=== PATIENT | female | born 1975 ===

== ENCOUNTER 2021-04-29 14:19 | Outpatient (REF) | payer OTHER, SELFPAY ==
[2021-04-30 05:23] LABS: CT PCR NOT DETECTED (Not Detect.); NG PCR NOT DETECTED (Not Detect.)
[2021-04-30 10:49] LABS: BV Int Neg Control Negative (Negative); BV Int Pos Control Positive (Positive)
== END 2021-04-29 14:20 | disposition home or self-care (01) ==
LOC: HO.LAB 14:19
PROVIDERS: PCP Internal Medicine; Visit Provider Advanced Practice Midwife
DX: R10.2 Pelvic and perineal pain (principal); N94.0 Mittelschmerz; N94.3 Premenstrual tension syndrome; Z20.2 Contact with and (suspected) exposure to infections with a predominantly sexual mode of transmission; Z30.011 Encounter for initial prescription of contraceptive pills
CPT/HCPCS: 81025; 87480; 87491; 87510; 87591; 87660; 99202

== ENCOUNTER 2021-05-14 16:03 | Outpatient (REF) | payer OTHER, SELFPAY ==
--- NOTE | ~2021-05-14 | US_ITS ---
EXAMINATION:US pelvic and transvaginal CLINICAL INFORMATION: Reason for Exam N94.3 - Premenstrual tension syndrome COMPARISON: No priors available. LMP: 8 days ago FINDINGS: UTERUS: The uterus is anteverted. Size: 7.6 x 4.5 x 5.5 cm. Uterine mass: There is no uterine mass. Cervix: There are nabothian cysts otherwise Grossly unremarkable. Endometrium: No ultrasound evidence of endometrial lesion. endometrial thickness measures ADNEXA: Normal Right ovary: Normal in size. Left ovary: Normal in size. Dominant follicle. Doppler exam: Normal Doppler flow identified in both ovaries. FREE FLUID: Trace amount of free fluid. OTHER FINDINGS: None US/US pelvic and transvaginal IMPRESSION: Normal pelvic ultrasound.
== END 2021-05-14 16:04 | disposition home or self-care (01) ==
LOC: HO.US 16:03
PROVIDERS: Visit Provider Advanced Practice Midwife
DX: N94.3 Premenstrual tension syndrome (principal); N94.0 Mittelschmerz; R10.2 Pelvic and perineal pain
CPT/HCPCS: 76830; 76856

== ENCOUNTER 2021-06-24 14:46 | Outpatient (REF) | payer OTHER, SELFPAY ==
--- NOTE | ~2021-06-24 | MM_ITS ---
EXAMINATION: MM SCREENING DIGITAL BREAST TOMOSYNTHESIS, BILATERAL CLINICAL INFORMATION: Screening. Asymptomatic. The lifetime risk of breast cancer based on the Tyrer-Cuzick Model is 6.7%. COMPARISON: Mammography: 05/24/2019 and studies dating back to 11/06/2011. TECHNIQUE: Digital breast tomosynthesis is performed in both the craniocaudal and mediolateral oblique views along with computer-aided detection (CAD). Synthesized 2D images are generated from the tomosynthesis. FINDINGS: The breasts are heterogeneously dense, which may obscure small masses (ACR BI-RADS breast composition Category c). Right breast: In the region of architectural distortion from previous stereotactic biopsy about the anterior superior aspect of the right breast, there is an approximately 1.5 x 1.2 cm partially circumscribed density with question small lobulation present. About the deep lateral aspect of the left breast superiorly, there is a partially circumscribed 2 cm density. Left breast: About the deep upper outer aspect of the left breast, approximately 9 cm from the nipple, there is a 2.0 x 1.9 cm circumscribed density. About the upper outer aspect of the left breast, approximately 3 cm nipple, there is a partially circumscribed 1.4 cm density. MM/MM tomosynthesis screening BI IMPRESSION: Bilateral breast densities for which spot compression views and probable ultrasound are recommended. ASSESSMENT: BI-RADS 0: Incomplete - Need Additional Imaging Evaluation RECOMMENDATION: 1. Additional views of the bilateral breasts. 2. Targeted ultrasound if warranted after review of the additional views. 3. Radiology department staff will contact the patient for additional imaging. This patient's information was entered into a reminder system with a target due date for their next mammogram.
== END 2021-06-24 14:47 | disposition home or self-care (01) ==
LOC: HO.MAMMO 14:46
PROVIDERS: Visit Provider Advanced Practice Midwife
DX: Z12.31 Encounter for screening mammogram for malignant neoplasm of breast (principal)
CPT/HCPCS: 77063; 77067

== ENCOUNTER 2021-07-04 13:56 | Outpatient (REF) | payer OTHER, SELFPAY ==
--- NOTE | ~2021-07-04 | MM_ITS ---
EXAMINATION: MM DIAGNOSTIC DIGITAL BREAST TOMOSYNTHESIS, BILATERAL US DIAGNOSTIC ULTRASOUND BREAST, BILATERAL CLINICAL INFORMATION: Recall from screening for bilateral oval smooth partly obscured asymmetries, likely fibrocystic changes. Prior history right breast stereotactic biopsy 05/25/2018 and subsequent open surgical biopsy 06/04/2018 (radial sclerosing lesion, florid ductal hyperplasia, columnar cell change, biopsy cavity, apocrine metaplasia, microcysts, duct ectasia, rare microcalcifications and stromal fibrosis). COMPARISON: Mammography: 06/24/2021, 05/24/2019, 06/04/2018, 05/25/2018. TECHNIQUE: Digital breast tomosynthesis is performed. 2D images are generated from the tomosynthesis. The following views are obtained: Spot right CC, spot right ML, spot left CC x2, spot left ML. Ultrasound of both breasts is performed using grayscale imaging and color Doppler without and with harmonics. Bilateral targeted areas include retroareolar and upper outer right breast, and left anterior and posterior upper outer quadrant. FINDINGS: The breasts are heterogeneously dense, which may obscure small masses (ACR BI-RADS breast composition Category c). The additional views confirm oval benign-appearing smooth partly obscured asymmetry left upper outer quadrant mid and posterior and right breast upper outer periareolar and mid upper outer right breast. Ultrasound right breast demonstrates simple cyst at 11:00 position 6 cm from nipple measuring approximately 1.9 x 1.5 x 1.1 cm. There are at least 5 simple cysts in the retroareolar right breast largest approximately 1.4 x 0.8 cm and next largest 1.2 x 0.8 cm. There is some focal shadowing also noted central anterior right breast corresponding to the prior lumpectomy scar. Ultrasound left breast demonstrates several simple cysts upper outer quadrant, largest 2:00 position 9 cm from nipple measuring approximately 1.7 x 0.9 cm and next largest 1:00 position 3 cm from nipple measuring 1.5 x 1.0 cm. Results are discussed with the patient at time of visit, using an storage receipt poster. MM/MM tomosynthesis added view BI IMPRESSION: Bilateral fibrocystic parenchymal pattern. Bilateral benign simple cysts on targeted ultrasound. ASSESSMENT: BI-RADS 2: Benign RECOMMENDATION: Routine annual mammography screening. This patient's information was entered into a reminder system with a target due date for their next mammogram.
== END 2021-07-04 13:57 | disposition home or self-care (01) ==
LOC: HO.MAMMO 13:56
PROVIDERS: PCP Internal Medicine; Visit Provider Advanced Practice Midwife
DX: N64.89 Other specified disorders of breast (principal)
CPT/HCPCS: 76642; 77062; 77066

== ENCOUNTER 2021-09-20 07:49 | Outpatient (REF) | payer OTHER, SELFPAY ==
[2021-09-20 10:15] LABS: COVID-19 Test Negative (Negative); IDNOW Serial# 16C4AD1C
== END 2021-09-20 07:50 | disposition home or self-care (01) ==
LOC: HO.LAB 07:49
PROVIDERS: Visit Provider Internal Medicine
DX: Z20.822 Contact with and (suspected) exposure to COVID-19 (principal)
CPT/HCPCS: 36415; 87635; C9803

== ENCOUNTER 2021-10-26 07:50 | Outpatient (REF) | payer OTHER, SELFPAY ==
--- NOTE | ~2021-10-26 | XR_ITS ---
EXAMINATION: XR CHEST CLINICAL INFORMATION: Cough COMPARISON: None TECHNIQUE: Frontal view of the chest was obtained. FINDINGS: No significant abnormality is noted involving the heart, lungs, mediastinum, bony thorax or soft tissues. XR/XR chest 1V IMPRESSION: Unremarkable examination.
[2021-10-26 08:08] LABS: MANUAL DIFF FLAG NO
[2021-10-26 08:13] LABS: Basophils Absolute Auto 0.1 X10*3/uL (0.0-0.2); Basophils Percent Auto 0.8 % (0-2); Eosinophils Absolute Auto 0.3 X10*3/uL (0.0-0.4); Eosinophils Percent Auto 4.7 % (0-4); Hematocrit 40.9 % (37.0-47.0); Hemoglobin 13.4 g/dl (12.0-16.0); Imm Gran Abs Auto 0.01 X10*3/uL (0.00-0.03); Imm Gran Pct Auto 0.2 % (0.0-0.4); Lymphocytes Absolute Auto 1.8 X10*3/uL (1.2-4.9); Mean Corpuscular HGB Conc 32.8 g/dl (31.0-35.0); Mean Corpuscular Hemoglobin 29.9 pg (27.0-33.0); Mean Corpuscular Volume 91.3 fL (80.0-98.0); Mean Platelet Volume 10.2 fL (9.4-12.3); Monocytes Absolute Auto 0.3 X10*3/uL (0.1-1.2); Monocytes Percent Auto 5.8 % (2-11); Neutrophils Absolute Auto 3.4 x10*3/uL (2.0-8.3); Neutrophils Percent Auto 57.5 % (45-73); Platelet Count 208 X10*3/uL (160-400); Red Blood Count 4.48 X10*6/uL (4.20-5.50); Red Cell Distribution Width 12.6 % (11.0-16.0); White Blood Count 5.9 X10*3/uL (4.8-10.8)
[2021-10-26 08:25] LABS: Estimated Average Glucose 105 mg/dL; Hemoglobin A1c % 5.3 %
[2021-10-26 08:44] LABS: Alanine Aminotransferase 13 U/L (0-31); Albumin Level 4.1 g/dL (3.5-5.0); Alkaline Phosphatase 54 U/L (39-117); Anion Gap 10 (12-20); Aspartate Amino Transferase 13 U/L (5-31); Bilirubin Total 0.3 mg/dL (0.0-1.0); Blood Urea Nitrogen 23 mg/dL (9-16); Calcium 9.7 mg/dL (8.4-10.2); Carbon Dioxide 27 mmol/L (22-29); Chloride 106 mmol/L (96-108); Cholesterol 231 mg/dL; Estimated Glomerular Filt Rate > 60; Glucose Fasting 96 mg/dL (60-99); HDL Cholesterol 59 mg/dL; LDL Cholesterol Calculated 161 mg/dl; Potassium 4.1 mmol/L (3.3-5.1); Sodium 139 mmol/L (135-145); Total Protein 6.9 g/dL (6.5-8.0); Triglycerides 56 mg/dL
[2021-10-26 09:05] LABS: TSH reflex Free T4 0.68 uIU/mL (0.32-4.0)
[2021-10-28 09:34] LABS: Folate 11.5 ng/mL (> or = 4.0); Vitamin B12 > 2000 pg/mL (200-900)
[2021-10-30 16:21] LABS: Vitamin D 25-OH, D2 <4 ng/mL; Vitamin D 25-OH, D3 27 ng/mL; Vitamin D 25-OH, Total 27 ng/mL (30-100)
== END 2021-10-26 07:51 | disposition home or self-care (01) ==
LOC: HO.LAB 07:50
PROVIDERS: Visit Provider Nurse Practitioner Acute Care
DX: Z00.00 Encounter for general adult medical examination without abnormal findings (principal); R05.9 Cough, unspecified
CPT/HCPCS: 36415; 71045; 80053; 80061; 82306; 82607; 82746; 83036; 84443; 85025

== ENCOUNTER 2021-12-18 08:57 | Outpatient (REF) | payer OTHER, SELFPAY ==
[2021-12-18 15:58] LABS: CT PCR NOT DETECTED (Not Detect.); NG PCR NOT DETECTED (Not Detect.)
[2021-12-19 15:44] LABS: BV Int Neg Control Negative (Negative); BV Int Pos Control Positive (Positive)
== END 2021-12-18 08:58 | disposition home or self-care (01) ==
LOC: HO.LAB 08:57
PROVIDERS: PCP Internal Medicine; Visit Provider Advanced Practice Midwife
DX: Z01.411 Encounter for gynecological examination (general) (routine) with abnormal findings (principal); R10.2 Pelvic and perineal pain; N94.0 Mittelschmerz; N92.0 Excessive and frequent menstruation with regular cycle; Z20.2 Contact with and (suspected) exposure to infections with a predominantly sexual mode of transmission
CPT/HCPCS: 87480; 87491; 87510; 87591; 87660; 99212

== ENCOUNTER 2022-01-07 15:14 | Outpatient (REF) | payer OTHER, SELFPAY ==
[2022-01-08 09:00] LABS: CT PCR NOT DETECTED (Not Detect.); NG PCR NOT DETECTED (Not Detect.)
[2022-01-08 09:48] LABS: BV Int Neg Control Negative (Negative); BV Int Pos Control Positive (Positive)
[2022-01-09 17:01] LABS: HPV mRNA E6/E7 rflx Not Detected (Not Detected)
== END 2022-01-07 15:15 | disposition home or self-care (01) ==
LOC: HO.LAB 15:14
PROVIDERS: Visit Provider Advanced Practice Midwife
DX: Z01.419 Encounter for gynecological examination (general) (routine) without abnormal findings (principal); Z11.51 Encounter for screening for human papillomavirus (HPV); Z20.2 Contact with and (suspected) exposure to infections with a predominantly sexual mode of transmission
CPT/HCPCS: 87480; 87491; 87510; 87591; 87624; 87660; 88142

== ENCOUNTER 2022-01-08 14:16 | Outpatient (REF) | payer OTHER, SELFPAY ==
--- NOTE | ~2022-01-08 | US_ITS ---
EXAMINATION: US PELVIS CLINICAL INFORMATION: Excessive and frequent menstruation with irregularity, menstrual spotting. COMPARISON: None TECHNIQUE: Ultrasound of the pelvis is performed using both transabdominal and transvaginal transducers along with Doppler. Transvaginal imaging is performed due to inadequate visualization transabdominally. FINDINGS: Uterus: The uterus is anteverted, anteflexed and measures 8.08 cm in length, 4.5 cm in AP, and 5.1 cm in transverse dimension. The double wall endometrial thickness is 0.89 cm. The uterus is smooth in contour and has normal myometrial echogenicity. No visible fibroid. There are small nabothian cysts seen in the cervix. The cervix is normal. Adnexa: Both ovaries are visualized. There is normal color-flow to the adnexa. There is no ovarian torsion. There is no pelvic ascites or fluid collection. Right ovary measures 2.14 x 1.50 x 1.38 cm and volume 2.32 mL. It appears unremarkable. Previously right ovary measured 2.7 x 1.1 x 1.5 cm. Left ovary measures 2.22 x 1.41 x 1.56 cm and volume 2.57 mL. It appears unremarkable. Previously it measured 2.5 x 2.1 x 1.8 cm. US/US pelvic and transvaginal IMPRESSION: Unremarkable uterus. Small nabothian cysts in the cervix. Unremarkable ovaries.
== END 2022-01-08 14:17 | disposition home or self-care (01) ==
LOC: HO.US 14:16
PROVIDERS: Visit Provider Advanced Practice Midwife
DX: N92.0 Excessive and frequent menstruation with regular cycle (principal); N94.0 Mittelschmerz; R10.2 Pelvic and perineal pain
CPT/HCPCS: 76830; 76856

== ENCOUNTER → 2022-01-22 10:55 | Outpatient (BNVA) | payer OTHER, SELFPAY | PROVIDERS: Visit Provider Advanced Practice Midwife | DX: Z13.89 Encounter for screening for other disorder (principal) ==

== ENCOUNTER 2022-08-09 07:47 | Emergency (ER) | payer OTHER, SELFPAY ==
--- NOTE | 2022-08-09 08:01 | ED.GENADULT ---
HPI - General Adult General Chief complaint: Upper Respiratory Symptoms Stated complaint: chills, headache, sore throat Time Seen by Provider: 08/09/22 07:57 Source: patient Mode of arrival: ambulatory Limitations: no limitations History of Present Illness HPI narrative: This is a 47 years old female with no past medical history presented to the emergency department from work complaining of body aches malaise headache. Symptoms started 3 hours ago while at work. She denies any vomiting any diarrhea any other medical problems Onset (ago): hour(s) (3) Radiation: non-radiation Severity: moderate Pain Consistency: constant Relieving factors: none Exacerbating factors: none Related Data Previous Rx's Medication Instructions Recorded aspirin 81 mg tablet,delayed 81 mg PO DAILY 90 days #90 tabs 04/16/22 release (Adult Aspirin Regimen) magnesium 200 mg tablet 200 mg PO DAILY #30 tabs 04/16/22 rizatriptan 10 mg tablet 10 mg PO Q2-4H PRN migraine 04/16/22 headache 30 days #12 tabs cholecalciferol (vitamin D3) 25 50 mcg PO DAILY 90 days #180 caps 06/02/22 mcg (1,000 unit) capsule ibuprofen 800 mg tablet 800 mg PO Q8H PRN pain #30 tabs 08/09/22 Allergies Allergy/AdvReac Type Severity Reaction Status Date / Time cefazolin [CEFAZOLIN] Allergy Intermediate RASH, Verified 08/09/22 08:15 HIVES, ITCHINESS Penicillins [PENICILLINS] Allergy Intermediate RASH Verified 08/09/22 08:15 penicillin G Allergy Unknown rash, Verified 08/09/22 08:15 itching antibiotic unsure name Allergy Unknown unknown Uncoded 04/16/22 16:36 Review of Systems Review of Systems: Yes all other systems are reviewed and are negative Cardiovascular: Cardiovascular: Reports no additional cardiovascular complaints Respiratory: Respiratory: Reports no additional respiratory complaints PMFSH Past Medical History Medical History Galactorrhea Migraines Surgical History H/O hand surgery History of bilateral tubal ligation History of reduction surgery of right breast Family History Family History Maternal Aunt Cervical cancer Social History Social History Housing: Apartment Alcohol intake: never Patient Tobacco Use Status: Never used Tobacco e-Cigarette/Vaping Use: Never Used Second Hand Smoke Exposure: No Advance Directives: No Advance Directives Information Provided: Yes service: No Current occupational status: employed Current occupational exposures/hazards: No Gender identity: Female Cognitive needs: No Hearing needs: No Vision needs: No Physical Exam ED Vital Signs: Vital Signs - 24 hr 08/09/22 08:16 08/09/22 09:13 Temperature 100.1 F 98.9 F Pulse Rate 113 H 112 H Respiratory Rate 18 18 Blood Pressure 111/62 102/58 L Pulse Oximetry 99 97 Oxygen Delivery Method Room Air Room Air BMI result Body Mass Index 23.4 Const General: cooperative and alert Nutritional Appearance: average body habitus Orientation/consciousness: patient oriented x3 HENMT Head: Yes normal to inspection General nose exam: Normal external nose present Face and sinus: Yes normal facial exam Mouth: Normal oral and palatal mucosa present Throat: Yes posterior oropharynx normal Neck Neck: Yes normal visual inspection and Yes full ROM Chest Chest palpation & inspection: normal inspection of the chest Resp Effort & Inspection: able to speak in complete sentences Auscultation: clear to auscultation bilaterally Cardio Jugular venous distension: no JVD Rate: regular rate Rhythm: regular rhythm GI Inspection: Yes normal to inspection Palpation (GI): Soft to palpation Auscultation: normal bowel sounds Skin General skin exam: no rashes or lesions noted and elasticity normal Lesions: no lesions Rashes: no rashes Neuro General: patient oriented x3 Course Course Course Narrative: covid pos bu Sat 97 % ar RA,non toxic appearing will d/c home Medical Decision Making Lab Data Labs: Lab Results 08/09/22 Range/Units 08:09 Influenza Type A (PCR) NEGATIVE (Negative) Influenza Type B (PCR) NEGATIVE (Negative) RSV RNA Qual (PCR) NEGATIVE (Negative) SARS-CoV-2 RNA (RT-PCR) POSITIVE A (Negative) Discharge Plan Discharge Clinical Impression: COVID-19 Patient Disposition: Home, Self-Care Instructions: COVID-19 (Coronavirus Disease 2019) (ED) Prescriptions: New ibuprofen 800 mg tablet 800 mg PO Q8H PRN (Reason: pain) Qty: 30 0RF No Action cholecalciferol (vitamin D3) 25 mcg (1,000 unit) capsule 50 mcg PO DAILY 90 Days Qty: 180 1RF rizatriptan 10 mg tablet 10 mg PO Q2-4H PRN (Reason: migraine headache) 30 Days Qty: 12 6RF Rx Instructions: do not exceed 3 doses per 24 hrs magnesium 200 mg tablet 200 mg PO DAILY Qty: 30 1RF aspirin [Adult Aspirin Regimen] 81 mg tablet,delayed release (DR/EC) 81 mg PO DAILY 90 Days Qty: 90 1RF Referrals: Janice Luke MD [Primary Care Provider] - 09/12/22 Stand Alone Forms: Work/School Release Interventions: ED Discharge Assessment Last Done: 08/09/22 09:47 Discharge Date/Time: 08/09/22 09:48
[2022-08-09 08:16] VITALS: BP 111/62; PULSE 113; RESP 18; TEMP 37.8; O2SAT 99; BMI 23.4
[2022-08-09] MEDS: Ibuprofen 800 MG TABLET PO (08:24)
[2022-08-09 08:56] LABS: Influenza A PCR NEGATIVE (Negative); Influenza B PCR NEGATIVE (Negative); Resp Syncy Virus RNA Qual PCR NEGATIVE (Negative); SARS COV2 PCR INHOUSE POSITIVE (Negative)
[2022-08-09 09:13] VITALS: BP 102/58; PULSE 112; RESP 18; TEMP 37.2; O2SAT 97
== END 2022-08-09 09:48 | disposition home or self-care (01) ==
PROVIDERS: Emergency Provider Emergency Medicine; PCP Internal Medicine
DX: U07.1 COVID-19 (principal); R51.9 Headache, unspecified
CPT/HCPCS: 0241U; 99283

== ENCOUNTER 2022-10-02 08:04 | Outpatient (REF) | payer OTHER, SELFPAY ==
[2022-10-02 08:14] LABS: MANUAL DIFF FLAG NO
[2022-10-02 08:42] LABS: Basophils Percent Auto 0.7 % (0-2); Eosinophils Absolute Auto 0.4 X10*3/uL (0.0-0.4); Eosinophils Percent Auto 6.3 % (0-4); Hemoglobin 13.2 g/dl (12.0-16.0); Imm Gran Abs Auto 0.02 X10*3/uL (0.00-0.03); Imm Gran Pct Auto 0.3 % (0.0-0.4); Lymphocytes Percent Auto 35.1 % (20-40); Mean Corpuscular Hemoglobin 29.6 pg (27.0-33.0); Mean Corpuscular Volume 89.7 fL (80.0-98.0); Mean Platelet Volume 10.4 fL (9.4-12.3); Monocytes Absolute Auto 0.4 X10*3/uL (0.1-1.2); Monocytes Percent Auto 6.8 % (2-11); Neutrophils Absolute Auto 2.9 x10*3/uL (2.0-8.3); Neutrophils Percent Auto 50.8 % (45-73); Platelet Count 237 X10*3/uL (160-400); Red Blood Count 4.46 X10*6/uL (4.20-5.50); Red Cell Distribution Width 12.3 % (11.0-16.0); White Blood Count 5.7 X10*3/uL (4.8-10.8)
[2022-10-02 09:32] LABS: Alanine Aminotransferase 10 U/L (0-31); Alkaline Phosphatase 64 U/L (39-117); Anion Gap 8 (12-20); Aspartate Amino Transferase 13 U/L (5-31); Bilirubin Total 0.7 mg/dL (0.0-1.0); Blood Urea Nitrogen 18 mg/dL (9-16); Calcium 9.2 mg/dL (8.4-10.2); Carbon Dioxide 28 mmol/L (22-29); Chloride 106 mmol/L (96-108); Cholesterol 212 mg/dL; Estimated Glomerular Filt Rate > 60; Glucose Fasting 94 mg/dL (60-99); HDL Cholesterol 60 mg/dL; LDL Cholesterol Calculated 141 mg/dl; Potassium 4.3 mmol/L (3.3-5.1); Sodium 138 mmol/L (135-145); Total Protein 6.5 g/dL (6.5-8.0); Triglycerides 57 mg/dL; Vitamin D 25-OH Total 41.8 ng/mL (>30)
== END 2022-10-02 08:05 | disposition home or self-care (01) ==
LOC: HO.LAB 08:04
PROVIDERS: PCP Internal Medicine; Visit Provider Internal Medicine
DX: Z00.00 Encounter for general adult medical examination without abnormal findings (principal); D64.9 Anemia, unspecified; E55.9 Vitamin D deficiency, unspecified
CPT/HCPCS: 36415; 80053; 80061; 82306; 85025

== ENCOUNTER 2023-03-13 15:46 | Outpatient (REF) | payer OTHER, SELFPAY ==
--- NOTE | ~2023-03-13 | MM_ITS ---
EXAMINATION: MM SCREENING DIGITAL BREAST TOMOSYNTHESIS, BILATERAL CLINICAL INFORMATION: Screening. Asymptomatic. Right open surgical biopsy 06/04/2018 for radial sclerosing lesion. The lifetime risk of breast cancer based on the Tyrer-Cuzick Model is 7%. COMPARISON: Multiple prior studies including most recent mammography and bilateral breast ultrasound 07/04/2021. TECHNIQUE: Digital breast tomosynthesis is performed in both the craniocaudal and mediolateral oblique views along with computer-aided detection (CAD). Synthesized 2D images are generated from the tomosynthesis. FINDINGS: The breasts are heterogeneously dense, which may obscure small masses (ACR BI-RADS breast composition Category c). Fibrocystic parenchymal pattern and scattered benign asymmetries are similar to prior study. There is stable scarring anterior right breast from the excisional biopsy. There is no significant mass or interval architectural abnormality. No abnormal calcifications. The axilla are unremarkable. The skin contours are smooth. No significant changes. MM/MM tomosynthesis screening BI IMPRESSION: No mammographic evidence of malignancy. ASSESSMENT: BI-RADS 2: Benign RECOMMENDATION: Routine annual mammography screening. This patient's information was entered into a reminder system with a target due date for their next mammogram.
== END 2023-03-13 15:47 | disposition home or self-care (01) ==
LOC: HO.MAMMO 15:46
PROVIDERS: PCP Internal Medicine; Visit Provider Advanced Practice Midwife
DX: Z12.31 Encounter for screening mammogram for malignant neoplasm of breast (principal)
CPT/HCPCS: 77063; 77067

== ENCOUNTER 2023-05-27 15:41 | Outpatient (AMB) | payer BC, OTHER, SELFPAY ==
--- NOTE | 2023-05-27 15:52 | A.OFFPC_ITS ---
Vital Signs 05/27/23 15:53 Height 5 ft 1 in Weight 124 lb BMI 23.4 BP 110/70 Blood Pressure Location Lt brachial Position Sitting Intake Visit Reasons: Headaches Intake Note: Patient here for a follow up headaches Research Compliance Specialist Required: No Accompanied by: Self / Same As Patient Allergies cefazolin [CEFAZOLIN] Allergy (Intermediate, Verified 05/27/23 16:06) RASH, HIVES, ITCHINESS Penicillins [PENICILLINS] Allergy (Intermediate, Verified 05/27/23 16:06) RASH penicillin G Allergy (Unknown, Verified 05/27/23 16:06) rash, itching antibiotic unsure name Allergy (Unknown, Uncoded 05/27/23 16:06) unknown Medication List - Last Reconciled 05/27/23 by Janice Rios MD amitriptyline 10 mg PO BEDTIME 90 days aspirin (Adult Aspirin Regimen) 81 mg PO DAILY 90 days cholecalciferol (vitamin D3) 25 mcg PO DAILY 90 days rizatriptan 10 mg PO Q2-4H PRN 30 days Tobacco use date assessed: 10/28/22 Dental Screening Dental Screen Date: 05/27/23 Did you have a dental visit in the last 12 months?: Yes Did you have a dental problem in the last 6 months where you did not have access to dental care?: No Was dental information given to patient?: Patient has dentist HPI HPI Comments History of Present Illness Details This is a 47-year-old female that complains of migraines that have been present more frequently. She does said that she has been working more hours. No unilateral weakness associated with migraine. No blurry vision. I will increase amitriptyline from 10 mg to 25 mg. Had an episode of palpitations on exertion and dyspnea. No chest pain. [facility] Medical History Galactorrhea Migraines Surgical History H/O hand surgery History of bilateral tubal ligation History of reduction surgery of right breast Family History Maternal Aunt Cervical cancer Social History Housing: Apartment Alcohol intake: never Patient Tobacco Use Status: Never used Tobacco e-Cigarette/Vaping Use: Never Used Second Hand Smoke Exposure: No service: No Current occupational status: employed Current occupational exposures/hazards: No Gender identity: Female Cognitive needs: No Hearing needs: No Vision needs: Yes Female Reproductive History Menstrual Age of Menarche: 14 Questionnaire Thrive Questionnaire Date Thrive assessed: 10/28/22 ION-7 AMB Questionnaire ION-7 Date ION - 7 assessed: 10/28/22 Source: Developed by Drs. Magdy Edwards, Lela Ferreira, Jose Naik and colleagues, with an educational katie from [employer]. Review of Systems Const All systems reviewed & are unremarkable except as noted in HPI and below Eyes Reports no additional complaints, Denies change in vision and Denies other visual disturbances Card Denies chest pain at rest, Denies chest pain with activity, Denies edema, Denies irregular heart rhythm, Denies claudication, Denies dyspnea, Denies dyspnea on exertion, Denies orthopnea, Denies paroxysmal nocturnal dyspnea and Denies slow heart rate Resp Denies cough, Denies dyspnea and Denies dyspnea on exertion GI Denies abdominal pain, Denies change in bowel habits, Denies excessive flatus, Denies nausea and Denies vomiting Denies urinary incontinence, Denies urinary hesitancy and Denies urinary urgency Musc Denies abnormal gait, Denies atrophy, Denies deformity and Denies limited range of motion Skin/Breast Denies bleeding lesions, Denies changing lesions and Denies rash Neuro Denies abnormal gait and Denies lack of coordination Physical exam (Primary Care) Vital Signs: Last Vital Signs BP 110/70 05/27/23 15:53 BMI result Body Mass Index 23.4 Tobacco/Smoking Status: Tobacco use Status Tobacco use date assessed 10/28/22 05/27/23 15:53 Patient Tobacco Use Status Never used Tobacco 05/27/23 15:53 e-Cigarette/Vaping Use Never Used 05/27/23 15:53 Thrive Assessment: Date of Thrive Assessment Date Thrive assessed 10/28/22 05/27/23 15:53 Eyes General: appearance normal, both eyes and all related structures Eyelids: Yes eyelids normal Conjunctivae: conjunctivae normal Neck Neck: Yes normal visual inspection and Yes supple Resp Effort & Inspection: normal respiratory effort Auscultation: clear to auscultation bilaterally Cardio Jugular venous distension: no JVD Rate: regular rate Rhythm: regular rhythm Heart sounds: S1 normal heart sound present and S2 normal heart sound present Extrem General: Yes full ROM Assessment and Plan Assessment & Plan (1) Migraines: Code(s): G43.909 - Migraine, unspecified, not intractable, without status migrainosus Plan: Increase amitriptyline from 10 mg to 25 mg. Continue rizatriptan as needed. Orders: Orders Lipid Panel Today E78.5 - Hyperlipidemia, unspecified Vitamin D 25-OH Total Today E55.9 - Vitamin D deficiency, unspecified Comprehensive Violet. Panel Fast Today G43.909 - Migraine, unspecified, not intractable, without status migrainosus Complete Blood Count Auto Diff Today G43.909 - Migraine, unspecified, not intractable, without status migrainosus Referrals Vascular Surgery Referral I87.2 - Venous insufficiency (chronic) (peripheral) Medications: New amitriptyline 25 mg PO BEDTIME 90 tabs 0RF 90 days Discontinued amitriptyline Discontinued Reason: Patient Completed Course 10 mg PO BEDTIME 90 days 90 tabs 1RF G43.909 - Migraine, unspecified, not intractable, without status migrainosus Coding Level of Care Code Est Pt Level 3 (27268) Diagnoses Migraines G43.909 Time Spent (min) 18
[2023-05-27 15:53] VITALS: BP 110/70; BMI 23.4
== END 2023-05-27 16:15 | disposition home or self-care (01) ==
PROVIDERS: PCP Internal Medicine; Visit Provider Internal Medicine
DX: G43.909 Migraine, unspecified, not intractable, without status migrainosus (principal)
CPT/HCPCS: 99213

== ENCOUNTER 2023-06-13 07:25 | Outpatient (REF) | payer BC, SELFPAY ==
[2023-06-13 07:49] LABS: MANUAL DIFF FLAG NO
[2023-06-13 08:18] LABS: Basophils Percent Auto 0.7 % (0-2); Eosinophils Absolute Auto 0.3 X10*3/uL (0.0-0.4); Eosinophils Percent Auto 5.6 % (0-4); Hematocrit 40.6 % (37.0-47.0); Hemoglobin 13.4 g/dl (12.0-16.0); Imm Gran Abs Auto 0.01 X10*3/uL (0.00-0.03); Imm Gran Pct Auto 0.2 % (0.0-0.4); Lymphocytes Absolute Auto 2.1 X10*3/uL (1.2-4.9); Mean Corpuscular Hemoglobin 29.5 pg (27.0-33.0); Mean Corpuscular Volume 89.2 fL (80.0-98.0); Mean Platelet Volume 10.4 fL (9.4-12.3); Monocytes Absolute Auto 0.4 X10*3/uL (0.1-1.2); Monocytes Percent Auto 7.8 % (2-11); Neutrophils Absolute Auto 2.5 x10*3/uL (2.0-8.3); Neutrophils Percent Auto 46.7 % (45-73); Platelet Count 215 X10*3/uL (160-400); Red Blood Count 4.55 X10*6/uL (4.20-5.50); Red Cell Distribution Width 12.1 % (11.0-16.0); White Blood Count 5.4 X10*3/uL (4.8-10.8)
[2023-06-13 08:53] LABS: Alanine Aminotransferase 13 U/L (0-31); Alkaline Phosphatase 56 U/L (39-117); Anion Gap 9 (12-20); Aspartate Amino Transferase 14 U/L (5-31); Bilirubin Total 0.4 mg/dL (0.0-1.0); Blood Urea Nitrogen 23 mg/dL (9-16); Calcium 9.7 mg/dL (8.4-10.2); Carbon Dioxide 29 mmol/L (22-29); Chloride 107 mmol/L (96-108); Cholesterol 229 mg/dL (<200); Estimated Glomerular Filt Rate > 60; Glucose Fasting 97 mg/dL (60-99); HDL Cholesterol 66 mg/dL (>40); LDL Cholesterol Calculated 156 mg/dL (<100); Potassium 4.5 mmol/L (3.3-5.1); Sodium 140 mmol/L (135-145); Total Protein 6.5 g/dL (6.5-8.0); Triglycerides 37 mg/dL (<150)
[2023-06-13 09:12] LABS: Vitamin D 25-OH Total 40.8 ng/mL (>30)
== END 2023-06-13 07:26 | disposition home or self-care (01) ==
LOC: HO.LAB 07:25
PROVIDERS: PCP Internal Medicine; Visit Provider Internal Medicine
DX: E55.9 Vitamin D deficiency, unspecified (principal); G43.909 Migraine, unspecified, not intractable, without status migrainosus; E78.5 Hyperlipidemia, unspecified
CPT/HCPCS: 36415; 80053; 80061; 82306; 85025

== ENCOUNTER 2023-12-07 16:26 | Outpatient (AMB) | payer BC, OTHER, SELFPAY ==
--- NOTE | 2023-12-07 16:30 | MHC.PC.OV ---
Vital Signs 12/07/23 16:31 Height 5 ft 1 in Weight 125 lb BMI 23.6 BP 130/80 Blood Pressure Location Lt brachial Position Sitting Intake Visit Reasons: Annual exam Intake Note: Patient here for a physical exam Exchange Consultant Required: No Accompanied by: Self / Same As Patient Allergies cefazolin [CEFAZOLIN] Allergy (Intermediate, Verified 12/07/23 16:49) RASH, HIVES, ITCHINESS Penicillins [PENICILLINS] Allergy (Intermediate, Verified 12/07/23 16:49) RASH penicillin G Allergy (Unknown, Verified 12/07/23 16:49) rash, itching antibiotic unsure name Allergy (Unknown, Uncoded 12/07/23 16:49) unknown Medication List - Last Reconciled 12/07/23 by Janice Rios MD amitriptyline 25 mg PO BEDTIME 90 days aspirin (Adult Aspirin Regimen) 81 mg PO DAILY 90 days cholecalciferol (vitamin D3) 25 mcg PO DAILY 90 days rizatriptan 10 mg PO Q2-4H PRN 30 days Tobacco use date assessed: 12/07/23 Dental Screening Dental Screen Date: 12/07/23 Did you have a dental visit in the last 12 months?: Yes Did you have a dental problem in the last 6 months where you did not have access to dental care?: No Was dental information given to patient?: Patient has dentist HPI HPI Comments History of Present Illness Details This is a 48-year-old female with mild major depression that comes for her physical exam. She is interested in counseling for her depression. Will start her on buspirone for her anxiety. Last mammogram was March 2023. Pap smear 2021. No history of colon cancer. Will have Cologuard. [facility] Medical History (Updated 12/07/23 @ 16:58 by Janice Rios MD) Galactorrhea Migraines Surgical History H/O hand surgery History of reduction surgery of right breast History of bilateral tubal ligation Family History (Updated 12/07/23 @ 16:55 by Janice Rios MD) Maternal Aunt Cervical cancer Father Hypertension Mother Diabetes mellitus Social History Housing: Apartment Alcohol intake: never Patient Tobacco Use Status: Never used Tobacco e-Cigarette/Vaping Use: Never Used Second Hand Smoke Exposure: No service: No Current occupational status: employed Current occupational exposures/hazards: No Gender identity: Female Cognitive needs: No Hearing needs: No Vision needs: Yes Female Reproductive History Menstrual Age of Menarche: 14 Questionnaire PHQ-9 Over the last 2 weeks, how often have you been bothered by any of the following problems? 1. Little interest or pleasure in doing things: not at all 2. Feeling down, depressed, or hopeless: several days 3. Trouble falling or staying asleep, or sleeping too much: more than half the days 4. Feeling tired or having little energy: not at all 5. Poor appetite or overeating: not at all 6. Feeling bad about yourself - or that you are a failure or have let yourself or your family down: not at all 7. Trouble concentrating on things, such as reading the newspaper or watching television: not at all 8. Moving or speaking so slowly that other people could have noticed. Or the opposite - being so fidgety or restless that you have been moving around a lot more than usual: not at all 9. Thoughts that you would be better off or of hurting yourself in some way: not at all Total score: 3 Depression Screening Interpretation: Positive Depression Screening Follow-up: Existing condition, In treatment and Community Mental Health Worker F/U Depression Screening Done: Yes 12589 - PHQ-9 Billing: Yes Source: Developed by Drs. Magdy Edwards, Lela Ferreira, Jose Naik and colleagues, with an educational katie from [employer]. Thrive Questionnaire Date Thrive assessed: 12/07/23 I am a: Patient What is your living situation today?: I have a steady place to live Within the past 12 months, did the food you bought not last and you didn't have the money to get more?: Never true Within the past 12 months, did you worry whether your food would run out before you got money to buy more?: Never true Do you have trouble paying for medicines?: No Do you have trouble getting transportation to medical appointments?: No Do you have trouble paying your heating and electricity bill?: No Do you have trouble taking care of your child, family member or friend?: No Do you have trouble with day-to-day activities such as bathing, preparing meals, shopping, managing finances, etc.?: No Are you currently unemployed and looking for a job?: No Are you interested in more education?: No Please select the resources that you would like help with: None Currently or been in a relationship where the following occur: no concerns reported THRIVE Score: 0 AUDIT C Alcohol Use Questionnaire (AUDIT-C) 1. How often do you have a drink containing alcohol?: Never Total Score: 0 ION-7 AMB Questionnaire ION-7 Date ION - 7 assessed: 12/07/23 Feeling nervous, anxious, or on edge: 3 = Nearly every day Not being able to stop or control worryin = Several days Worrying too much about different things: 2 = More than half the days Trouble relaxin = Several days Being so restless that it is hard to sit still: 0 = Not at all Becoming easily annoyed or irritable: 1 = Several days Feeling afraid as if something awful might happen: 0 = Not at all Total ION-7 score (0-4 normal; 5-9 mild; 10-14 moderate; 15-21 severe): 8 Source: Developed by Drs. Magdy Edwards, Lela Ferreira, Jose Naik and colleagues, with an educational katie from [employer]. ION-7 Assessment Billing ION-7 Assessment Tool: ION-7 Assessment 44701 Review of Systems Const All systems reviewed & are unremarkable except as noted in HPI and below Eyes Reports no additional complaints, Denies change in vision and Denies other visual disturbances Card Denies chest pain at rest, Denies chest pain with activity, Denies edema, Denies irregular heart rhythm, Denies claudication, Denies dyspnea, Denies dyspnea on exertion, Denies orthopnea, Denies paroxysmal nocturnal dyspnea and Denies slow heart rate Resp Denies cough, Denies dyspnea and Denies dyspnea on exertion GI Denies abdominal pain, Denies change in bowel habits, Denies excessive flatus, Denies nausea and Denies vomiting Denies urinary incontinence, Denies urinary hesitancy and Denies urinary urgency Neuro Denies confusion Psych Denies confusion Physical exam (Primary Care) Vital Signs: Last Vital Signs BP 130/80 12/07/23 16:31 BMI result Body Mass Index 23.6 Tobacco/Smoking Status: Tobacco use Status Tobacco use date assessed 12/07/23 12/07/23 16:40 Patient Tobacco Use Status Never used Tobacco 12/07/23 16:40 e-Cigarette/Vaping Use Never Used 12/07/23 16:40 PHQ-9: PHQ-9 Score PHQ-9: Total score 3 12/07/23 16:40 Depression Screening Interpretation: Positive Depression Screening Follow-up: Existing condition, In treatment and Community Mental Health Worker F/U Thrive Assessment: Date of Thrive Assessment Date Thrive assessed 12/07/23 12/07/23 16:40 Currently or been in a relationship where the following occur: no concerns reported Const General: No confusion Orientation/consciousness: patient oriented x3 and No confusion Eyes General: appearance normal, both eyes and all related structures Eyelids: Yes eyelids normal Conjunctivae: conjunctivae normal Neck Neck: Yes normal visual inspection and Yes supple Resp Effort & Inspection: normal respiratory effort Auscultation: clear to auscultation bilaterally Cardio Jugular venous distension: no JVD Rate: regular rate Rhythm: regular rhythm Heart sounds: S1 normal heart sound present and S2 normal heart sound present GI Inspection: Yes normal to inspection Palpation (GI): Soft to palpation and nontender Auscultation: normal bowel sounds Skin General skin exam: no rashes or lesions noted Neuro General: patient oriented x3, no focal motor deficits and No confusion Extrem General: Yes full ROM Psych Appearance: grossly normal Assessment and Plan Assessment & Plan (1) Physical exam: Code(s): Z00.00 - Encounter for general adult medical examination without abnormal findings Plan: Repeat in a year. (2) Mild major depression: Code(s): F32.0 - Major depressive disorder, single episode, mild Plan: Referred to counseling. Continue amitriptyline. Orders: Orders Lipid Panel Today Z00.00 - Encounter for general adult medical examination without abnormal findings Comprehensive Philip. Panel Fast Today Z00.00 - Encounter for general adult medical examination without abnormal findings Referrals Cologuard Test Z12.11 - Encounter for screening for malignant neoplasm of colon, Z12.12 - Encounter for screening for malignant neoplasm of rectum Counseling Referral F32.0 - Major depressive disorder, single episode, mild Medications: New buspirone 7.5 mg PO BID 30 days 60 tabs 1RF Coding Level of Care Code Est Pt Prev Care 40-64y(98577) Diagnoses Physical exam Z00.00 Mild major depression F32.0 Additional Codes ION-7 Assessment Billing - ION-7 Assessment Tool: ION-7 Assessment 90251 ([id number]) Time Spent (min) 32
[2023-12-07 16:31] VITALS: BP 130/80; BMI 23.6
== END 2023-12-07 17:11 | disposition home or self-care (01) ==
PROVIDERS: PCP Internal Medicine; Visit Provider Internal Medicine
DX: Z00.00 Encounter for general adult medical examination without abnormal findings (principal); F32.0 Major depressive disorder, single episode, mild
CPT/HCPCS: 99396

== ENCOUNTER 2024-05-04 15:44 | Outpatient (REF) | payer BC, SELFPAY ==
--- NOTE | ~2024-05-04 | MM_ITS ---
EXAMINATION: MM SCREENING DIGITAL BREAST TOMOSYNTHESIS, BILATERAL CLINICAL INFORMATION: Screening. Asymptomatic. Status post benign right breast excision of complex sclerosing lesion in 2018. COMPARISON: Mammography: This study is compared with prior exams dating back to 2019. TECHNIQUE: Digital breast tomosynthesis is performed in both the craniocaudal and mediolateral oblique views along with computer-aided detection (CAD). Synthesized 2D images are generated from the tomosynthesis. FINDINGS: The breasts are heterogeneously dense, which may obscure small masses (ACR BI-RADS breast composition Category c). There are no significant masses, abnormal calcifications, or other abnormalities. Postsurgical changes are present in the retroareolar region of the right breast. MM/MM tomosynthesis screening BI IMPRESSION: No mammographic evidence of malignancy. ASSESSMENT: BI-RADS BI-RADS 2 - Benign Findings RECOMMENDATION: Routine annual mammography screening. 1 year F/U This examination should not preclude the clinical evaluation of a suspicious palpable abnormality. This patient's information was entered into a reminder system with a target due date for their next mammogram.
== END 2024-05-04 15:45 | disposition home or self-care (01) ==
LOC: HO.MAMMO 15:44
PROVIDERS: PCP Internal Medicine; Visit Provider Internal Medicine
DX: Z12.31 Encounter for screening mammogram for malignant neoplasm of breast (principal)
CPT/HCPCS: 77063; 77067

== ENCOUNTER → 2024-05-04 16:00 | Outpatient (BNV) | payer BC, SELFPAY | PROVIDERS: PCP Internal Medicine; Visit Provider Radiology Diagnostic Radiology | DX: Z12.31 Encounter for screening mammogram for malignant neoplasm of breast (principal) | CPT/HCPCS: 77063; 77067 ==

== ENCOUNTER 2024-06-09 16:22 | Outpatient (AMB) | payer BC, SELFPAY ==
[2024-06-09 16:26] VITALS: BP 120/70; BMI 23.4
--- NOTE | 2024-06-09 16:26 | A.OFFPC_ITS ---
Vital Signs 06/09/24 16:26 Height 5 ft 1 in Weight 124 lb BMI 23.4 BP 120/70 Blood Pressure Location Lt brachial Position Sitting Intake Visit Reasons: 6 month f/u depression, migraines Intake Note: Patient here for a 6 month follow up depression, migraines Digital Commentator Required: No Accompanied by: Self / Same As Patient Allergies cefazolin [CEFAZOLIN] Allergy (Intermediate, Verified 06/09/24 17:07) RASH, HIVES, ITCHINESS Penicillins [PENICILLINS] Allergy (Intermediate, Verified 06/09/24 17:07) RASH penicillin G Allergy (Unknown, Verified 06/09/24 17:07) rash, itching antibiotic unsure name Allergy (Unknown, Uncoded 06/09/24 17:07) unknown Medication List - Last Reconciled 06/09/24 by Janice Rios MD amitriptyline 25 mg PO BEDTIME 90 days aspirin (Adult Aspirin Regimen) 81 mg PO DAILY 90 days buspirone 7.5 mg PO BID 30 days cholecalciferol (vitamin D3) 25 mcg PO DAILY 90 days rizatriptan 10 mg PO Q2-4H PRN 30 days Tobacco use date assessed: 12/07/23 Dental Screening Dental Screen Date: 12/07/23 HPI HPI Comments History of Present Illness Details This is a 48-year-old female with mild major depression and migraine that complains of left scapular pain that has been present for few weeks. This is aggravated by activity. She also has a headache that involve left side of the sinus, ear and mandible that has been recent. Will order x-rays. Will also order methocarbamol. Depression somewhat stable with bupropion. On migraine prophylaxis with amitriptyline. She has elevated cholesterol and did not did the blood work that I order in December. She said she did call the office but the order was already. I reorder blood work and patient is aware. [facility] Medical History (Updated 06/10/24 @ 14:07 by Janice Rios MD) Galactorrhea Migraines Surgical History H/O hand surgery History of reduction surgery of right breast History of bilateral tubal ligation Family History Maternal Aunt Cervical cancer Father Hypertension Mother Diabetes mellitus Social History Housing: Apartment Alcohol intake: never Patient Tobacco Use Status: Never used Tobacco e-Cigarette/Vaping Use: Never Used Second Hand Smoke Exposure: No service: No Current occupational status: employed Current occupational exposures/hazards: No Gender identity: Female Cognitive needs: No Hearing needs: No Vision needs: Yes Female Reproductive History Menstrual Age of Menarche: 14 Questionnaire Thrive Questionnaire Date Thrive assessed: 12/07/23 ION-7 AMB Questionnaire ION-7 Date ION - 7 assessed: 12/07/23 Source: Developed by Drs. Magdy Edwards, Lela Ferreira, Jose Naik and colleagues, with an educational katie from [employer]. Review of Systems Const All systems reviewed & are unremarkable except as noted in HPI and below Card Denies chest pain at rest, Denies chest pain with activity, Denies edema, Denies irregular heart rhythm, Denies claudication, Denies dyspnea, Denies dyspnea on exertion, Denies orthopnea, Denies paroxysmal nocturnal dyspnea and Denies slow heart rate Resp Denies cough, Denies dyspnea and Denies dyspnea on exertion GI Denies abdominal pain, Denies change in bowel habits, Denies excessive flatus, Denies nausea and Denies vomiting Denies urinary incontinence, Denies urinary hesitancy and Denies urinary urgency Musc Denies atrophy, Denies deformity, Reports arthralgias, Denies limited range of motion and Reports muscle cramps Skin/Breast Denies bleeding lesions, Denies changing lesions and Denies rash Physical exam (Primary Care) Vital Signs: Last Vital Signs BP 120/70 06/09/24 16:26 BMI result Body Mass Index 23.4 Tobacco/Smoking Status: Tobacco use Status Tobacco use date assessed 12/07/23 06/09/24 16:27 Patient Tobacco Use Status Never used Tobacco 06/09/24 16:27 e-Cigarette/Vaping Use Never Used 06/09/24 16:27 Thrive Assessment: Date of Thrive Assessment Date Thrive assessed 12/07/23 06/09/24 16:27 Resp Effort & Inspection: normal respiratory effort Auscultation: clear to auscultation bilaterally Cardio Jugular venous distension: no JVD Rate: regular rate Rhythm: regular rhythm Heart sounds: S1 normal heart sound present and S2 normal heart sound present Extrem General: Yes full ROM Assessment and Plan Assessment & Plan (1) Mild major depression: Code(s): F32.0 - Major depressive disorder, single episode, mild Plan: Continue bupropion. (2) Mandibular pain: Code(s): R68.84 - Jaw pain Plan: X-ray ordered. (3) Sinus pain: Code(s): J34.89 - Other specified disorders of nose and nasal sinuses Plan: X-ray ordered. (4) Migraines: Code(s): G43.909 - Migraine, unspecified, not intractable, without status migrainosus Plan: Continue amitriptyline for migraine prophylaxis. (5) Pain of left scapula: Code(s): M89.8X1 - Other specified disorders of bone, shoulder Plan: Start methocarbamol as needed. Orders: Orders Lipid Panel 06/09/24 E78.5 - Hyperlipidemia, unspecified Comprehensive Ona. Panel Fast 06/09/24 E78.00 - Pure hypercholesterolemia, unspecified Vitamin D 25-OH Total 06/09/24 E55.9 - Vitamin D deficiency, unspecified XR mandible <4V 06/09/24 R68.84 - Jaw pain XR sinus <3V 06/09/24 J34.89 - Other specified disorders of nose and nasal sinuses Medications: New methocarbamol 500 mg PO TID PRN 21 tabs 0RF muscle pain 7 days Coding Level of Care Code Est Pt Level 4 (47695) Complex EM visit Add On G2211 Diagnoses Mild major depression F32.0 Mandibular pain R68.84 Sinus pain J34.89 Migraines G43.909 Pain of left scapula M89.8X1 Time Spent (min) 20
== END 2024-06-09 17:15 | disposition home or self-care (01) ==
PROVIDERS: PCP Internal Medicine; Visit Provider Internal Medicine
DX: F32.0 Major depressive disorder, single episode, mild (principal); R68.84 Jaw pain; J34.89 Other specified disorders of nose and nasal sinuses; G43.909 Migraine, unspecified, not intractable, without status migrainosus; M89.8X1 Other specified disorders of bone, shoulder
CPT/HCPCS: 99214

== ENCOUNTER 2024-06-18 07:00 | Outpatient (REF) | payer BC, SELFPAY ==
[2024-06-18 08:02] LABS: Alanine Aminotransferase 13 U/L (0-31); Albumin Level 4.2 g/dL (3.5-5.0); Alkaline Phosphatase 57 U/L (39-117); Anion Gap 11 (12-20); Aspartate Amino Transferase 14 U/L (5-31); Bilirubin Total 0.3 mg/dL (0.0-1.0); Blood Urea Nitrogen 33 mg/dL (9-16); Calcium 9.7 mg/dL (8.4-10.2); Carbon Dioxide 27 mmol/L (22-29); Chloride 107 mmol/L (96-108); Cholesterol 247 mg/dL (<200); Estimated Glomerular Filt Rate > 60; Glucose Fasting 98 mg/dL (60-99); HDL Cholesterol 69 mg/dL (>40); LDL Cholesterol Calculated 168 mg/dL (<100); Potassium 4.3 mmol/L (3.3-5.1); Sodium 141 mmol/L (135-145); Triglycerides 51 mg/dL (<150)
[2024-06-18 08:17] LABS: Vitamin D 25-OH Total 37.5 ng/mL (>30)
== END 2024-06-18 07:01 | disposition home or self-care (01) ==
LOC: HO.LAB 07:00
PROVIDERS: PCP Internal Medicine; Visit Provider Internal Medicine
DX: Z00.00 Encounter for general adult medical examination without abnormal findings (principal); E55.9 Vitamin D deficiency, unspecified
CPT/HCPCS: 36415; 80053; 80061; 82306

== ENCOUNTER 2024-08-21 06:28 | Emergency (ER) | payer BC, SELFPAY ==
[2024-08-21 06:30] VITALS: BP 116/69; PULSE 82; RESP 18; TEMP 37.1; O2SAT 99; BMI 23.1
--- NOTE | 2024-08-21 07:22 | ED.URI ---
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 Lights and noise bother her. She states she went to urgent care yesterday and they gave her IM toradol and zofran but the headache persists. Headache has worsened throughout the week. No numbness, weakness, has lots of pressure on L maxillary sinus. Not on thinners. Has had to come to the hospital before for migraines like this. She denies abx prescription to me MD elicited complaint: sinus pain and other (migraine) Onset (ago): day(s) (thursday) Consistency: progressively worsening Severity: severe Able to tolerate fluids by mouth: Yes Exacerbating factors: other (lights, noise) Relieving factors: nothing Context: other (covid one week ago now worsening BRITO, sinus pain) Associated symptoms: headache, nasal congestion and nausea Treatments prior to arrival: other Related Data Previous Rx's ?Medication ?Instructions ?Recorded buspirone 7.5 mg tablet 7.5 mg PO BID 30 days #60 tabs 02/11/24 amitriptyline 25 mg tablet 25 mg PO BEDTIME 90 days #90 tabs 02/27/24 aspirin 81 mg tablet,delayed 81 mg PO DAILY 90 days #90 tabs 05/02/24 release (Adult Aspirin Regimen) cholecalciferol (vitamin D3) 25 25 mcg PO DAILY 90 days #90 caps 05/02/24 mcg (1,000 unit) capsule rizatriptan 10 mg tablet 10 mg PO Q2-4H PRN migraine 05/02/24 headache 30 days #12 tabs methocarbamol 500 mg tablet 500 mg PO TID PRN muscle pain 7 06/09/24 days #21 tabs Allergies Allergy/AdvReac Type Severity Reaction Status Date / Time cefazolin [CEFAZOLIN] Allergy Intermediate RASH, Verified 08/21/24 06:30 HIVES, ITCHINESS Penicillins [PENICILLINS] Allergy Intermediate RASH Verified 08/21/24 06:30 penicillin G Allergy Unknown rash, Verified 08/21/24 06:30 itching antibiotic unsure name Allergy Unknown unknown Uncoded 08/21/24 06:30 Review of Systems Review of Systems: Constitutional : No Fever, No Chills, No Fatigue ENT/Mouth : No sore throat, No Rhinorrhea, pos sinus pain, pos congestion Eyes: No Eye Pain, No Swelling, No Redness Cardiovascular : No Chest Pain, No SOB, No Dyspnea on Exertion Respiratory : No Cough, No Sputum Gastrointestinal : No Nausea, No Vomiting, No Diarrhea, No abdominal Pain Genitourinary : No Dysuria, No Urinary Frequency, No Hematuria, Musculoskeletal : No joint pain, No Myalgias, No Joint Swelling Skin : No Skin Lesions, No rash Neuro : No Weakness, No Numbness, No Dizziness, positive Headache All other systems reviewed and are negative [facility] Past Medical History Attestation statement: The following information was validated with the patient. Source: old records reviewed Medical History Galactorrhea Migraines Surgical History H/O hand surgery History of reduction surgery of right breast History of bilateral tubal ligation Family History Family History Maternal Aunt Cervical cancer Father Hypertension Mother Diabetes mellitus Social History Social History Housing: Apartment Alcohol intake: never Patient Tobacco Use Status: Never used Tobacco e-Cigarette/Vaping Use: Never Used Second Hand Smoke Exposure: No Advance Directives: No Advance Directives Information Provided: Yes Do you have a plan to hurt others: No Plan service: No Current occupational status: employed Current occupational exposures/hazards: No Gender identity: Female Cognitive needs: No Hearing needs: No Vision needs: Yes Physical Exam Vital Signs: Vital Signs: Last Vital Signs Temp 98.7 F 08/21/24 06:30 Pulse 82 08/21/24 06:30 Resp 18 08/21/24 06:30 BP 116/69 08/21/24 06:30 Pulse Ox 99 08/21/24 06:30 O2 Del Method Room Air 08/21/24 06:30 BMI result Body Mass Index 23.1 Appearance: Alert. Oriented X3. No acute distress. Eyes: Pupils equal, round and reactive to light. ENT: Pharynx normal. L max ttp Neck: Normal inspection. Neck supple. no meningeal signs CVS: Normal heart rate and rhythm. Pulses normal. Respiratory: No respiratory distress. Breath sounds normal. Abdomen: Soft and nontender. Skin: Skin warm and dry. Normal skin color. Normal skin turgor. Extremities: No lower extremity edema. No calf ttp Neuro: Oriented X 3. No motor deficit. No sensory deficit. normal gait Course Course Course Narrative: denies abx but I see cephalexin 08/20 filled will instruct her to take it Reevaluation(s) Reevaluation #1: feels better stable for DC Medications Administered Discontinued Medications Generic Name Dose Route Start Last Admin Trade Name Freq PRN Reason Stop Dose Admin Dexamethasone Sodium Phosphate 6 mg 08/21/24 07:33 08/21/24 07:54 Dexamethasone Sod Phosphate 4 Mg/Ml Vial IVPUSH 08/21/24 07:34 6 mg ONCE ONE Administration Diphenhydramine HCl 25 mg 08/21/24 07:32 08/21/24 07:54 Diphenhydramine Hcl 50 Mg/Ml Vial IVPUSH 08/21/24 07:33 25 mg ONCE ONE Administration Ketorolac Tromethamine 15 mg 08/21/24 07:32 08/21/24 07:51 Ketorolac Tromethamine 15 Mg/Ml Vial IVPUSH 08/21/24 07:33 15 mg ONCE ONE Administration Metoclopramide HCl 10 mg 08/21/24 07:32 08/21/24 07:54 Metoclopramide Hcl 10 Mg/2 Ml Vial IVPUSH 08/21/24 07:33 10 mg ONCE ONE Administration Medical Decision Making Medical Decision Making [facility] Narrative: 49 yo female with PMH of depression, HLD, migraines here with c/o COVID one week ago and viral symptoms resolved now c/o L side sinus pressure and throbbing - has had headaches like this before she has no fever, no meningeal signs, neuro intact, gradual 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 Suspect sinusitis and migraine Differential Diagnosis Differential Diagnoses: The differential diagnosis associated with the presentation includes mgraine, sinusitis Admission/Observation Consideration of admission/observation: Escalation of care including admission/observation considered Lab Data MDM Lab Attestation statement: I reviewed the patient's lab results. Labs: Lab Results 08/21/24 Range/Units 06:40 Influenza Type A (PCR) NEGATIVE (Negative) Influenza Type B (PCR) NEGATIVE (Negative) RSV RNA Qual (PCR) NEGATIVE (Negative) SARS-CoV-2 RNA (RT-PCR) POSITIVE A (Negative) External Record Review External record reviewed: Outpatient record Prescription Management I considered prescription management with: Other Discharge Plan Discharge Clinical Impression: Migraines Qualifiers: Migraine type: unspecified Status migrainosus presence: without status migrainosus Intractability: not intractable Qualified Code(s): G43.909 - Migraine, unspecified, not intractable, without status migrainosus Patient Disposition: Home, Self-Care Instructions: Migraine Headache (ED) Additional Instructions: start the antibiotic you were given a steroid in the ED as well to decrease inflammation and swelling return for any worsening symptoms, pain, confusion, fevers or any other concerns. stay hydrated Prescriptions: No Action buspirone 7.5 mg tablet 7.5 mg PO BID 30 Days Qty: 60 1RF amitriptyline 25 mg tablet 25 mg PO BEDTIME 90 Days Qty: 90 0RF aspirin [Adult Aspirin Regimen] 81 mg tablet,delayed release (DR/EC) 81 mg PO DAILY 90 Days Qty: 90 1RF cholecalciferol (vitamin D3) 25 mcg (1,000 unit) capsule 25 mcg PO DAILY 90 Days Qty: 90 1RF rizatriptan 10 mg tablet 10 mg PO Q2-4H PRN (Reason: migraine headache) 30 Days Qty: 12 6RF Rx Instructions: do not exceed 3 doses per 24 hrs methocarbamol 500 mg tablet 500 mg PO TID PRN (Reason: muscle pain) 7 Days Qty: 21 0RF Print Language: Italian
[2024-08-21 07:27] LABS: Influenza A PCR NEGATIVE (Negative); Influenza B PCR NEGATIVE (Negative); Resp Syncy Virus RNA Qual PCR NEGATIVE (Negative); SARS COV2 PCR INHOUSE POSITIVE (Negative)
[2024-08-21] MEDS: Ketorolac Tromethamine 15 MG/ML VIAL IVPUSH (07:51)
[2024-08-21] MEDS: Metoclopramide HCl 10 MG/2 ML VIAL IVPUSH (07:54)
[2024-08-21] MEDS: dexAMETHasone sod phosphate 4 MG/ML VIAL 6 MG IVPUSH (07:54)
[2024-08-21] MEDS: diphenhydrAMINE HCL 50 MG/ML VIAL 25 MG IVPUSH (07:54)
[2024-08-21 09:20] VITALS: BP 98/45; PULSE 66; RESP 16; TEMP 37; O2SAT 100
[2024-08-21 09:23] VITALS: BP 98/45; PULSE 66; RESP 16; TEMP 37; O2SAT 100
== END 2024-08-21 09:23 | disposition home or self-care (01) ==
PROVIDERS: Emergency Provider Emergency Medicine; PCP Internal Medicine
DX: G43.909 Migraine, unspecified, not intractable, without status migrainosus (principal); R11.0 Nausea; R09.81 Nasal congestion; Z03.818 Encounter for observation for suspected exposure to other biological agents ruled out
CPT/HCPCS: 0241U; 96374; 96375; 99283; 99284; J1100; J1200; J1885; J2765

== ENCOUNTER 2024-08-31 09:23 | Outpatient (AMB) | payer BC, SELFPAY ==
[2024-08-31 09:24] VITALS: BP 122/68; BMI 23.2
--- NOTE | 2024-08-31 09:24 | MHC.OFFVIS ---
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 Present Information Interpreted: clinical only Button Reclaimer: Button Reclaimer Present Allergies cefazolin [CEFAZOLIN] Allergy (Intermediate, Verified 08/31/24 09:31) RASH, HIVES, ITCHINESS Penicillins [PENICILLINS] Allergy (Intermediate, Verified 08/31/24 09:31) RASH penicillin G Allergy (Unknown, Verified 08/31/24 09:31) rash, itching antibiotic unsure name Allergy (Unknown, Uncoded 08/31/24 09:31) unknown Medication List - Last Reconciled 08/31/24 by Eri Sousa CNM amitriptyline 25 mg PO BEDTIME 90 days aspirin (Adult Aspirin Regimen) 81 mg PO DAILY 90 days cholecalciferol (vitamin D3) 25 mcg PO DAILY 90 days rizatriptan 10 mg PO Q2-4H PRN 30 days Is last menstrual period known: No (since April no menses) 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 She had seen her primary couple of months ago she also has been having a feeling of just needing to urinate frequently but it is just a couple of drops. She does tend to hold her urine when she has to at work. She would appreciate a urology referral [facility] Medical History Galactorrhea Migraines Surgical History H/O hand surgery History of reduction surgery of right breast History of bilateral tubal ligation Family History Maternal Aunt Cervical cancer Father Hypertension Mother Diabetes mellitus Social History Housing: Apartment Alcohol intake: never Patient Tobacco Use Status: Never used Tobacco e-Cigarette/Vaping Use: Never Used Second Hand Smoke Exposure: No service: No Current occupational status: employed Current occupational exposures/hazards: No Gender identity: Female Cognitive needs: No Hearing needs: No Vision needs: Yes Female Reproductive History Menstrual Age of Menarche: 14 Duration of menses: 3-5 days control method: permanent sterilization Total pregnancies: 2 Full term: 2 Date of last pap smear: 01/07/22 ([id number].2016 WNL) History of abnormal pap smear: No Date of Mammogram: 05/04/24 (2Bening findings) Physical Exam Vital Signs: Last Vital Signs BP 122/68 08/31/24 09:24 BMI result Body Mass Index 23.2 Const General: healthy appearing, comfortable, no acute distress, well developed and alert Nutritional Appearance: average body habitus Orientation/consciousness: patient oriented x3 Limitations: no limitations HEENT Head: Yes normocephalic Neck Neck: Yes normal visual inspection Chest Chest palpation & inspection: normal inspection of the chest Breast/axilla inspection: normal inspection of the breasts and normal inspection of the axillae Breast/axilla palpation: normal palpation of the breasts and normal palpation of the axillae Resp Effort & Inspection: normal respiratory effort GI Inspection: Yes normal to inspection, No Abdominal wall edema and No distended Palpation (GI): Soft to palpation and nontender Other: Also atrophic changes evident with thinning of vaginal mucosa. And some dryness evident as well there is some clear and white mucus inside cervix parous healthy-appearing mobile nontender uterus not enlarged midposition mobile nontender in fact quite small adnexa nonenlarged fair tone with Kegel patient was able to hold Kegel for a few seconds. Instructed on doing them several times a day with holding muscle tone and also to void frequently to avoid over filling her bladder having incomplete emptying. General: Yes bladder normal to palpation External Female Exam: normal external appearance and normal appearance of the urethra Speculum Exam - Vagina: normal appearance of the vagina, normal palpation and normal vaginal discharge Speculum Exam - Cervix: normal appearance of the cervix, normal palpation and nontender Bimanual exam- vagina & uterus: normal bimanual exam, normal palpation, uterine size normal, bladder normal to palpation, consistency normal, normal palpation, uterine mobility normal, uterine shape normal, No Cervical tenderness present, non-tender and no cervical motion tenderness Bimanual Exam- Adnexa, other: normal adnexae, no masses, normal and No adnexal tenderness Neuro General: patient oriented x3 Assessment & Plan Assessment & Plan (1) Cervical cancer screening: Comment: 01/07/2022 Pap equals negative with negative HPV. Code(s): Z12.4 - Encounter for screening for malignant neoplasm of cervix Category: Medical (2) Well woman exam with routine gynecological exam: Code(s): Z01.419 - Encounter for gynecological examination (general) (routine) without abnormal findings Category: Medical (3) Perimenopausal symptoms: Code(s): N95.1 - Menopausal and female climacteric states Category: Medical (4) Urinary retention with incomplete bladder emptying: Code(s): R33.9 - Retention of urine, unspecified Category: Medical (5) Vaginal dryness, menopausal: Code(s): N95.1 - Menopausal and female climacteric states Category: Medical (6) Decreased libido: Code(s): R68.82 - Decreased libido Category: Medical Plan -----Discussed in this visit the following: healthy balanced diet, regular and consistent exercise, getting recommended health screens, doing the best she can for her particular health concerns, kegel exercises, pap smear screening and followup recommendations, mammography screening and SBE, normal changes in cycles in her life stage--- . She does not need a Pap smear this year she declined any testing for STIs and she is up-to-date on her mammograms. ---Discussed normal changes that happen premenapausally, perimenapausally, and postmenopausally, and ways to handle them. Discussed the normal variation, and the range of experiences that women experience. Discussed nutrition, health, need for exercise, both weight-bearing and aerobic. Also discussed the normal changes that happen with vaginal mucosal thinning and sensitivity, and simple more natural ways of handling these challenges. Discussed that while all of these changes are distressing in very many ways they are in fact normal in part of the life process. She had questions about hormones but it was for iony-rha-hakboyw products and I could not advise on these. I will try a prescription for Estrace vaginal cream for her to use a couple of times a week per the instructions to see if this ameliorate at least the vaginal symptoms that she is experiencing. I discussed with her what happens when we hold her urine and the bladder becomes over full and then we are not able to completely empty and we just void a couple of drops it may be that that is what is going on for her so I urged her to try to endeavor to void more frequently to avoid that is situation in the 1st place but I am also placing a urology referral for her to get this issue evaluated more completely. She is to let me know there were any other recommendations that they make and also whether not the estrogen cream helps. Reviewed ways of handling hot flashes as well. Orders: Orders Thyroid Stimulating Hormone Today N95.1 - Menopausal and female climacteric states, R33.9 - Retention of urine, unspecified, R68.82 - Decreased libido, Z01.419 - Encounter for gynecological examination (general) (routine) without abnormal findings, Z12.4 - Encounter for screening for malignant neoplasm of cervix Follicle Stimulating Hormone Today N95.1 - Menopausal and female climacteric states, R33.9 - Retention of urine, unspecified, R68.82 - Decreased libido, Z01.419 - Encounter for gynecological examination (general) (routine) without abnormal findings, Z12.4 - Encounter for screening for malignant neoplasm of cervix Referrals Urology Referral N95.1 - Menopausal and female climacteric states, R33.9 - Retention of urine, unspecified, R68.82 - Decreased libido, Z01.419 - Encounter for gynecological examination (general) (routine) without abnormal findings, Z12.4 - Encounter for screening for malignant neoplasm of cervix Medications: New estradiol 0.01%(0.1mg/gram) apply 1 gram vaginally 2 times a week 1 g vaginal 2XW 42.5 grams 1RF Coding Level of Care Code Est Pt Prev Care 40-64y(44821) Diagnoses Cervical cancer screening Z12.4 Well woman exam with routine gynecological exam Z01.419 Perimenopausal symptoms N95.1 Urinary retention with incomplete bladder emptying R33.9 Vaginal dryness, menopausal N95.1 Decreased libido R68.82
== END 2024-08-31 10:18 | disposition home or self-care (01) ==
PROVIDERS: PCP Internal Medicine; Visit Provider Advanced Practice Midwife
DX: Z12.4 Encounter for screening for malignant neoplasm of cervix (principal); Z01.419 Encounter for gynecological examination (general) (routine) without abnormal findings; N95.1 Menopausal and female climacteric states; R33.9 Retention of urine, unspecified; R68.82 Decreased libido
CPT/HCPCS: 99396

== ENCOUNTER 2024-10-27 15:15 | Outpatient (AMB) | payer BC, SELFPAY ==
--- NOTE | 2024-10-27 15:19 | A.OFFVIS_ITS ---
Intake Visit Reasons: ncomplete bladder emptying/decreased libido Intake Note: New Patient presents for initial visit for incomplete bladder emptying Urology Medications: none Blood Thinner: aspirin PVR: 0ml's Integrity Manager Required: Yes Integrity Manager Name: [id number] Allergies cefazolin [CEFAZOLIN] Allergy (Intermediate, Verified 10/27/24 16:47) RASH, HIVES, ITCHINESS Penicillins [PENICILLINS] Allergy (Intermediate, Verified 10/27/24 16:47) RASH penicillin G Allergy (Unknown, Verified 10/27/24 16:47) rash, itching antibiotic unsure name Allergy (Unknown, Uncoded 10/27/24 16:47) unknown Medication List - Last Reconciled 10/27/24 by WAYLON Hdz aspirin (Adult Aspirin Regimen) 81 mg PO DAILY 90 days cholecalciferol (vitamin D3) 25 mcg PO DAILY 90 days rizatriptan 10 mg PO Q2-4H PRN 30 days tamsulosin 0.4 mg PO BEDTIME 30 days HPI Comments Details: Antelmo is a pleasant 49-year-old [place] Islander-speaking female patient of Dr. Gutiérrez. She has a past medical history of migraines. She presents to the office today as a new patient for feeling of incomplete bladder emptying, urinary dribbling, and straining to urinate. 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 Patient reports symptoms have been present for approximately 8 months. She does have a previous history of 2 vaginal births of average size babies. She reports utilizing 2 Monik pads per day. She reports feeling symptoms are most bothersome at night as she feels she empties her bladder prior to bed in shortly after she is in bed she feels the need to urinate. She otherwise denies hematuria, dysuria, foul smelling urine, changes to urinary stream, flank pain, fever, and or chills. We discussed at length potential causes of lower urinary tract symptoms patient was experiencing as well as further workup and treatment options as well as risks and benefits of these treatment options. PVR 0 mL. We discussed pelvic floor therapy/exercises. Will obtain retroperitoneal ultrasound for further assessment evaluation. She otherwise offers no other issues or concerns at this time. [facility] Medical History Galactorrhea Migraines Surgical History H/O hand surgery History of reduction surgery of right breast History of bilateral tubal ligation Family History Maternal Aunt Cervical cancer Father Hypertension Mother Diabetes mellitus Social History Housing: Apartment Alcohol intake: never Patient Tobacco Use Status: Never used Tobacco e-Cigarette/Vaping Use: Never Used Second Hand Smoke Exposure: No service: No Current occupational status: employed Current occupational exposures/hazards: No Gender identity: Female Cognitive needs: No Hearing needs: No Vision needs: Yes Female Reproductive History Menstrual Age of Menarche: 14 Review of Systems Const All systems reviewed & are unremarkable except as noted in HPI and below Physical Exam Const General: cooperative, healthy appearing, comfortable, no acute distress, well developed, alert and awake Orientation/consciousness: patient oriented x3 Limitations: no limitations HEENT Head: Yes normal to inspection, Yes normocephalic and Yes atraumatic Ears: hearing grossly normal bilaterally Eyes General: appearance normal, both eyes and all related structures Neck Neck: Yes normal visual inspection and Yes trachea midline Chest Chest palpation & inspection: normal inspection of the chest Resp Effort & Inspection: normal respiratory effort and able to speak in complete sentences Cardio Rate: regular rate GI Inspection: Yes normal to inspection General: Yes no CVA tenderness Back/Spine/Pelvis Back: no CVA tenderness Skin General skin exam: no rashes or lesions noted Neuro General: patient oriented x3 Extrem General: Yes normal to inspection Psych Appearance: grossly normal and well kempt Mental Status: mental status grossly normal Speech and movement: Normal speech and movement present and Clear speech present Affect: normal affect Attitude: cooperative Thought process: Normal thought process present Thought content: Normal thought content present Insight: Fair insight present (Psych) Judgement: Fair judgement present (Psych) Office Procedures Post Void Residual Post Residual Void Post Void Residual (PVR): 0 [id number] Void Residual by ultrasound Results AMB Urinalysis, Automated UA Leukoctes 15 Rosa/uL Last Edit by Siddharth Hope on 10/27/24 15:42 UA Nitrite Last Edit by Siddharth Hope on 10/27/24 15:42 UA Urobilinogen 0.2 mg/dL Last Edit by Siddharth Hope on 10/27/24 15:42 UA Protein 0 mg/dL Last Edit by Sqeeqeekwabena Hope on 10/27/24 15:42 UA pH 6.0 Last Edit by [email or web address] on 10/27/24 15:42 UA Blood 0 Martin/uL Last Edit by Sqeeqeekwabena Hope on 10/27/24 15:42 UA Specific [place] 1.015 Last Edit by Sqeeqeekwabena Hope on 10/27/24 15:42 UA Ketone Last Edit by Sqeeqeekwabena Hope on 10/27/24 15:42 UA Bilirubin 0 mg/dL Last Edit by Sqeeqeekwabena Hope on 10/27/24 15:42 UA Glucose 0 mg/dL Last Edit by Sqeeqeekwabena [employer] [employer] on 10/27/24 15:42 Results Reviewed Results Reviewed: Laboratory Last Values Urine pH (Auto) 6.0 10/27/24 15:41 Specific [place] (Auto) 1.015 10/27/24 15:41 Urine Protein (Auto) 0 mg/dL 10/27/24 15:41 Glucose (UA)(Auto) 0 mg/dL 10/27/24 15:41 Urine Blood (Auto) 0 Martin/uL 10/27/24 15:41 Urine Bilirubin (Auto) 0 mg/dL 10/27/24 15:41 Urine Urobilinogen (Auto) 0.2 mg/dL 10/27/24 15:41 Leukocyte Esterase (Auto) 15 Rosa/uL 10/27/24 15:41 Assessment & Plan Assessment & Plan (1) Straining on urination: Code(s): R39.16 - Straining to void Category: Medical (2) Feeling of incomplete bladder emptying: Code(s): R39.14 - Feeling of incomplete bladder emptying Category: Medical (3) Urinary dribbling: Code(s): N39.43 - Post-void dribbling Category: Medical Plan In office urinalysis results reviewed with the patient today; as noted above. PVR 0 mL. We discussed pelvic floor exercises/therapy. We discussed possible near future in office cystoscopy and or urodynamics for further assessment evaluation. Start Flomax as discussed and prescribed. Will obtain retroperitoneal ultrasound for further assessment evaluation. We discussed attempting to double void. Follow-up in 1-3 months with imaging and PVR; or sooner with any issues, concerns, and or questions. Orders: Orders AMB Post Void Residual by ultrasound Today R33.9 - Retention of urine, unspecified AMB Urinalysis Automated Today Z13.9 - Encounter for screening, unspecified US retroperitoneal comp Today N39.43 - Post-void dribbling, R39.14 - Feeling of incomplete bladder emptying, R39.16 - Straining to void Medications: New tamsulosin 0.4 mg PO BEDTIME 30 caps 3RF 30 days N40.1 - Benign prostatic hyperplasia with lower urinary tract symptoms, R35.1 - Nocturia Patient Instructions: The patient had an opportunity to ask questions regarding the treatment plan. All questions were answered. Physical exam, labs, and imaging were discussed and reviewed in detail. As well as risks, benefits, and discussion of treatment choices. No major barriers to understanding were identified. The patient expressed understanding and agreement with the above treatment plan. The patient was made aware they should contact our office by phone for worsening of their current condition, the appearance of new symptoms, or with any questions or concerns. Compliance is encouraged with any medications and follow up testing that is ordered. It is a privilege to be allowed the opportunity to participate in? your urological care.? Again, if you have any questions or concerns If you have any questions or concerns please do not hesitate to contact me. The office is [phone]. This note is constructed using voice recognition software. While every effort has been made to ensure accuracy energy specialist errors may have been included. Yours sincerely, WAYLON Hdz Coding Level of Care Code New Pt Level 4 (04193) Diagnoses Straining on urination R39.16 Feeling of incomplete bladder emptying R39.14 Urinary dribbling N39.43 CPT Codes Post Residual Void - PVR CPT Code: 18676-Aaxy Void Residual by ultrasound ([id number])
--- OUTSIDE RECORDS SUMMARY | 2024-10-27 18:09 | XMS_ITS | Continuity of Care Document ---
Author Organization [facility] Address [address] [place] [address] Phone Care Team Providers Care Cupola Man Name Role Phone Herminio HERNANDEZ, HANNY, TOYA, Magdy Unavailable U navailable Procedures Procedure Date Office/Outpt E&M Established 15 Mins Dec Duplex Scan-extrem Veins; Comp Duplex Scan-extrem Veins; Uni/ 24 Endovenous Laser, [...] E&M Established 15 Mins [facility], [address], [place], [id number], [place] tel:[phone] CVR - DANYA - Dana 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 [address], [address], [place], [id number], [place]. tel:[phone] Referring Provider: Janice Gutiérrez MD, [address] [place] [address] , [address] [place] [address] D/B/A: [place], [address]. tel:[phone] [facility], [address] [place] [address] Dr [address] [place], [id number], [place] tel:[phone] CVR - [place] - Dana Encounter for follow-up examination after completed treatment for conditions other than malignant neChronic venous hypertension (idiopathic) with other complication s of bilateral lower extremity 4 Herminio HERNANDEZ RVT, TOYA Curran. [address] [place] [address], [address], [place], [place], [id number], [place]. tel:[phone] Referring Provider: Janice Gutiérrez MD, [address] [facility] , [address] [place] [address] D/B/A: [place], [address]. tel:[phone] [facility], [address] [place] [address] [address], [id number], [place] tel:[phone] CVR - [place] - Dana Chronic venous hypertension (idiopathic) with other complication s of left lower extremity 4 Herminio HERNANDEZ RVT, TOYA Curran. [address], [address], [place], [place], [id number], [place]. tel:[phone] Referring Provider: Janice Gutiérrez MD, [address] [facility] , [address] [place] [address] D/B/A: [place], [address]. tel:[phone] [facility], [address] [place] [address] [address], [id number], [place] tel:[phone] CVR - [place] - Dana Varicose veins of left lower extremity with other complication s 4 Herminio HERNANDEZ RVT, TOYA Curran. [address], [address], [place], [place], [id number], [place]. tel:[phone] Referring Provider: Janice Gutiérrez MD, [address] [facility] , [address] D/B/A: [place], [address]. tel:[phone] [facility], [address] [place] [address] [address] [place], [id number], [place] tel:[phone] CVR - [place] - Dana Encounter for follow-up examination after completed treatment for conditions other than malignant neVaricose veins of right lower extremity with pain 4 Herminio HERNANDEZ RVT, TOYA Curran. [address] [place] [address], [place], [place], [id number], [place]. tel:[phone] Referring Provider: Janice Gutiérrez MD, [address] [facility] , [address] D/B/A: [place], [address]. tel:[phone] [facility], [address] [place] [address] [facility] [address] [place], [id number], [place] tel:[phone] CVR - [place] - Dana Chronic venous hypertension (idiopathic) with inflammation of right lower extremity 4 Herminio HERNANDEZ RVT, TOYA Curran. [address] [place] [address], [place], [place], [id number], [place]. tel:[phone] Referring Provider: Janice Gutiérrez MD, [address] [facility] , [address] [place] [address] D/B/A: [place], [address]. tel:[phone] Offic/outpt E&m Estab 5 Min Trial - Telemedicine [facility], [address] [place] [address] [address] [place], [id number], [place] tel:[phone] CVR - [place] - Dana Chronic venous hypertension (idiopathic) with other complication s of bilateral lower extremity 3 Radha Baeza. [address], [place], [place], [id number], [place]. tel:[phone] Referring Provider: Janice Gutiérrez MD, [address] , [address] [place] D/B/A: [place], [address]. tel:[phone] [facility], [address] [place] [address] [address], [place], [id number], tel:[phone] CVR - [place] - Dana Varicose veins of bilateral lower extremities with pain Sep-2 3 Toby HERNANDEZ FACS [facility] TOYA Melo. [address], [address] [facility], [place], [address], [place]. tel:[phone] Referring Provider: Janice Gutiérrez MD, [address] [facility] , [address] [place] [address] D/B/A: lee [place]ined[place], . tel:[phone] Office/Oupt E&M New Pt 45 Mins [facility], [address] [place] [address] [address], [place], [id number], [place] tel:[phone] CVR - [place] - Dana Varicose veins of bi low extrem w oth complication Steve in right lower legPain in left lower legPain in right legFlail joint, unspecified jointPain in left leg Sep-2 3 Toby HERNANDEZ FACS T TOYA Melo. [facility] [facility], [place] [address], [place], [address], [place]. tel:[phone] Referring Provider: Janice Gutiérrez MD, [address] [facility] , [address] [place] [address] D/B/A: [place], [address]. tel:[phone] Family History Family Member Type Diagnosis Age At Onset No Information Payers Payer name Insurance type Covered green party ID Keshawn lomas(s) [facility] DANYA [id number] [facility] [id number] Social History Type Description Quantity Date [...]
--- OUTSIDE RECORDS SUMMARY | 2024-10-27 18:09 | XMS_ITS | Continuity of Care Document ---
Author Organization [facility], , [facility], OFFICE Address [address] [place] [address] Care Team Providers Care Hospice Admitting Clerk Name Role Phone ROXY RAMIREZ Primary Care Provider [facility] Urologist [phone] Assessment No assessment recorded. Plan of Treatment Reminders Order Date Submit Date Provider Last Modified By Organization Details Last Modified Time Details Appointments Follow Up, 2024 04:30P M JENNI IRBY Not available Not available Not available Lab None recorded . Referral physical therapis t referral - lumbar radiculo katerine 2023 024 [facility] At [facility], [address] [place], [address], 09/30/2024 16:57:14 Procedures None recorded . Surgeries None recorded . Imaging None recorded . Medication Orders venlafax ine ER 37.5 mg capsule, extended release 24 hr 2023 024 [id number], [address], [place], [id number], 09/30/2024 10:14:49 Patient TargetsNo targets recorded. Patient InstructionsNo instructions recorded. Reason for Referral Physical Therapist Referral for Lumbar radiculopathy lumbar radiculopathy Referring Physician: Roxy Ramirez, Family Medicine, Encounter Date: 09/30/2024 Problems Name Problem SNOMED Code Status Onset Date Resolution Date Notes Provider Name and Address Organization Details Recorded Time Reduced libido 3897184 Active 2024 Per Historica l records Maggy Juan, RN null, [facility] 5 08:59:59 Perimenop ausal state 105090842396 104 Active 2024 Per Historica l records BETI Ochoa, [facility] 5 08:59:59 Migraine 66487242 Active 2024 Per Historica l records BETI Ochoa, [facility] 5 08:59:59 Galactorr hea not associate d with childbirt h 48639848 [facility] Retention of urine 688153466 Active 2024 with incomplet e bladder emptying- [facility] 08:[facility] Vaginal dryness 48891762 [facility] 08[facility]59 Problem Notes None recorded. Procedures Surgical History Date Name Laterality Status Provider Name and Address Organization Details Recorded Time 8 Biopsy of breast open completed Maggy Juan RN [facility] 10/21/2024 12:45:51 8 biopsy completed Maggy Juan RN [facility] 10/21/2024 12:46:47 ligation of fallopian tube completed Maggy Juan RN [facility] 10/24/2024 15:26:26 surgical procedure completed Maggy Juan RN [facility] 10/24/2024 15:27:33 Breast reduction completed Maggy Juan RN [facility] 10/27/2024 08:51:39 Imaging Results None recorded. Procedure Notes None recorded. Medical Equipment None Reported. Allergies Allergen ID Allergen Name Allergen Category Reaction Reaction Severity Criticality Documentation Date Start Date Code Code System Note Provider Name and Address Organization Details Recorded Time 053550 penicilli n G Not available itching rash Not available Not available Not available 10/24/2024 7980 RxNorm Per Histo rical recor ds BETI Ochoa, [facility] 5 15:21:51 054154 cefazolin medicatio n hives itching rash Not available Not available Not available Not available 10/24/2024 2180 RxNorm Per Histo rical recor ds Maggy Juan RN null, [facility] 5 15:23:40 314734 Product containin g penicilli n and antibioti c (product) medicatio n rash Not available Not available 10/24/2024 64330 05 SNOMED Per Histo rical recor ds Maggy Juan RN null, [facility] 5 15:25:18 Medications Name Sig Start Date Stop Date Status Note LastModified by Organization Details LastModified Time methocarbamo l 500 mg tablet TAKE 1 TABLET BY MOUTH THREE TIMES DAILY FOR 7 DAYS NEEDED FOR MUSCLE PAIN active Not Available Not Available No t Available venlafaxine ER 37.5 mg capsule,exte nded release 24 hr TAKE 1 CAPSULE BY MOUTH DAILY FOR MIGRAINE AND HOT FLASHES PREVENTION active Not Available Not Available N ot Available rizatriptan 10 mg tablet TAKE 1 TABLET BY MOUTH EVERY 2 TO 4 HOURS NEEDED FOR MIGRAINE HEADACHE. DO NOT EXCEED 3 DOSES PER 24 HOURS active Not Available Not Available No t Available aspirin 81 mg tablet,delay ed release TAKE 1 TABLET BY MOUTH DAILY active Not Available Not Available Not Available amitriptylin e 25 mg tablet TAKE 1 TABLET BY MOUTH DAILY AT BEDTIME active Not Available Not Available N ot Available rizatriptan 10 mg disintegrati ng tablet Take 1 tablet by oral route as directed. active Not Available Not Available No t Available cephalexin 500 mg capsule TAKE 1 CAPSULE BY MOUTH EVERY 8 HOURS FOR 7 DAYS active Not Available Not Available No t Available buspirone 7.5 mg tablet TAKE 1 TABLET BY MOUTH TWICE A DAY active Not Available Not Available No t Available ondansetron 4 mg disintegrati ng tablet PLACE 1 TABLET UNDER THE TONGUE EVERY 8 HOURS NEEDED FOR NAUSEA active Not Available Not Available No t Available cholecalcife rol (vitamin D3) 25 mcg (1,000 unit) capsule TAKE 1 CAPSULE BY MOUTH DAILY active Not Available Not Available Not Available Vitamin D 1 daily active Not Available Not Av ailable Not Available Asprin Ec Low Dose 1 daily active Not Available Not Available Not Available Vitals Date Recorded Body weight Provider Name an d Address Organization Details Last Updated DateTime 09/30/2024 19856.23 g Flako Estrada MA [facility] 09/30/2024 09:26:17 Date Recorded Body mass index (BMI) Body height Provider Name and Address Organization Details Last Updated DateTime 09/30/2024 24 kg/m2 154.94 cm Flako Estrada MA [facility] 09/30/2024 09:26:27 Date Recorded Heart rate Provider Name an d Address Organization Details Last Updated DateTime 09/30/2024 70 /min Flako Estrada MA [facility] 09/30/2024 09:37:58 Date Recorded Oxygen saturation Oxygen saturation in Arterial blood by Pulse oximetry Provider Name and Address Organization Details Last Updated DateTime 09/30/2024 99 % 99 % Flako Estrada MA [facility] 09/30/2024 09:38:13 Date Recorded Systolic blood pressure Diastolic blood pressure Provider Name and Address Organization Details Last Updated DateTime 09/30/2024 112 mm[Hg] 76 mm[Hg] Flako Estrada MA [facility] 09/30/2024 09:37:55 Social History Question Answer Notes LastModified by FriendFeedizat ion Details LastModified Time Tobacco Smoking Status Never Smoker Flako Estrada MA [facility] 09/30/2024 09:35:09 What Was The Date Of Your Most Recent Tobacco Screening? 09/30/2024 Information not available 09/30/2024 Do You Or Have You Ever Used Any Other Forms Of Tobacco Or Nicotine? No Information not available 09/30/2024 Sex: Female Functional Status None recorded. Mental Status None recorded. Family History Relationship Description Onset Age of this Age Resolved Age Notes LastModified by Organization Details LastModified Time Maternal Aunt Family history of malignant neoplasm of cervix uteri [email or web address] Not available 11:23:23 Mother Diabetes mellitus Per Histor ical record s Not available 10/27/2024 08:49:35 Father Hypertensive disorder Per Histor ical record s Not available 10/27/2024 08:50:07 Medical History No medical history recorded. Gynecological HistoryNo gynecological history recorded. Obstetrics History GPAL:G 0 P 0 0 0 0 Immunizations Vaccine Type Date Status Note Provider Nam e and Address Organization Details Recorded Time Td(adult) unspecified formulation 03/20/2009 completed BETI Ochoa, [facility] 10/21/2024 12:09:11 Hep B, unspecified formulation 09/06/2013 completed BETI Ochoa, [facility] 10/21/2024 12:09:53 COVID-19, mRNA, LNP-S, PF, 25 mcg/0.25 mL 01/15/2021 completed BETI Ochoa, [facility] 10/27/2024 11:54:12 influenza, unspecified formulation 09/25/2022 completed BETI Ochoa, [facility] 10/21/2024 12:19:44 MMR 1977 completed BETI Ochoa, [facility] 10/27/2024 08:31:39 influenza, unspecified formulation 06/14/2021 completed BETI Ochoa, [facility] 10/27/2024 08:41:06 influenza, unspecified formulation 07/07/2020 completed BETI Ochoa, [facility] 10/27/2024 11:48:59 COVID-19, mRNA, LNP-S, PF, 30 mcg/0.3 mL dose, vickie-sucrose 09/12/2021 completed BETI Ochoa, [facility] 10/27/2024 11:51:03 COVID-19, mRNA, LNP-S, PF, 25 mcg/0.25 mL 02/12/2021 BETI Bray, [facility] 10/27/2024 11:56:17 Past Encounters Encounter ID Performer Location Encounter Start Date Encounter Closed Date Diagnosis/Indication Diagnosis SNOMED-CT Code Diagnosis ICD10 Code Diagnosis Note [id number] JENNI IRBY , [facility], OFFICE [address] [place] [address] 09/30/2024 09:18:40 09/30/2024 10:18:40 Active or passive immunization 536816269 Z23 FluTd/tdap Lumbar radiculopathy 128 070024 M54.16 Right lumbar radiculopa thyGI upset with ibuprofen - prefers to avoid.Cont inue Tylenol, ASA, heat, and stretching as tolerated. Will arrange PT. Migraine 18229190 G43.90 9 Frequent migraines responsive to rizatripta n. Looking for preventati ve options.Di scussed venlafaxin e being helpful for hot flashes as well as migraines. Try RX as below. Aware can take 2-3 months to work. Also recommend hydrating, stress control, and adequate sleep. Potential side effects of antidepres sants include stomach upset, nausea, diarrhea, headaches, sleep disturbanc es, initial worsening of anxiety/ depression , and decreased libido. Risk of suicidal ideation with all antidepres sants discussed. Informed that side effects typically subside in a few weeks and therapeuti c effects may take 6-8 weeks. Discussed the importance of not stopping medication abruptly, especially at higher doses.Foll ow up 1 month or sooner PRN. Menopausal flushing 1983 01091 N95.1 X6 months with amenorrhea . Hot flashes are impairing sleep, which in turn likely worsening migraines. Plan as above. Health Concerns Section Related Observation LastModified by Organization Detai ls LastModified Time None Recorded Concern Status LastModified by Organization Details LastModified Time None Recorded Payers Encounter Date Sequence Insurance Name Policy Number Policy Hernández Covered Member ID Hernández Member ID Guarantor Name 09/30/2024 1 [place] [id number] Antelmo Anglin [id number] Antelmo Anglin Notes Date Note Type Note Provider Name and Address Organization Details Recorded Time 09/30/2024 text/html Patient presents to office today for concern about multiple issues. New patient. atg architect services used.Last PCP = Dr. Macdonald with [facility] -Migraines with improvement from rizatriptan 10mg. Headache weekly. Family HX migraines. Almost always left side. Associated with prodrome of blurry vision. No nausea, vomiting, difficulty balance or speech, chest pain. Hydrates well, could be better in winter. Some stress with son. Starting therapy with [facility]. Could improve sleep, has hot flashes x1 year. Perimenopause, 6 months without period.-Daily nasal congestion.-Const ant right leg pain from lower back to heel. Had laser therapy for varicose veins. Some tingling, pain worst with walking.-Surgery on right hand/ elbow, when cold has numbness through hand.-Tingling in shoulders/ back.-Concern about high cholesterol.-Appt with urology at [facility] 10/27/24 for burning with urination. No HX UTIs. Need records. JENNI IRBY [address] [place] [address], [place], [address], [facility] 09/30/2024 11:10:47 OBGyn Episode No OBEpisode recorded.
--- OUTSIDE RECORDS SUMMARY | 2024-10-27 18:09 | XMS_ITS | Data Portability ---
Author Organization [facility], [facility] Address [address] [place] [address] Care Team Providers Care Target Setter Name Role Phone SIA RAMIREZ Primary Care Provider [phone] [facility] Urologist Assessment No assessment recorded. Plan of Treatment Reminders Order Date Submit Date Provider Last Modified By Organization Details Last Modified Time Details Appointments Follow Up, 2024 04:30P M JENNI IRBY Not available Not available Not available Lab None recorded . Referral physical therapis t referral - lumbar radiculo katerine 2023 024 [facility] At [facility], [address] [place] [address], [address], 09/30/2024 16:57:14 Procedures None recorded . Surgeries None recorded . Imaging None recorded . Medication Orders venlafax ine ER 37.5 mg capsule, extended release 24 hr 2023 024 [id number], [address] [place] [address], [place], [id number], 09/30/2024 10:14:49 Patient TargetsNo targets recorded. Patient InstructionsNo instructions recorded. Reason for Referral Physical Therapist Referral for Lumbar radiculopathy lumbar radiculopathy Referring Physician: Sia Ramirez, Family Medicine, Encounter Date: 09/30/2024 Problems Name Problem SNOMED Code Status Onset Date Resolution Date Notes Provider Name and Address Organization Details Recorded Time Reduced libido 2113810 Active 2024 Per Historica l records BETI Ochoa, [facility] 5 08:59:59 Perimenop [facility] 051761219812 104 Active 2024 Per Historica l records BETI Ochoa, [facility] 5 08:59:59 Migraine 27192477 Active 2024 Per Historica l records BETI Ochoa, [facility] 5 08:59:59 Galactorr hea not associate d with childbirt h 92956063 Active 2024 Per Historica l records BETI Ochoa, [facility] 5 08:59:59 Retention of urine 203440263 Active 2024 with incomplet e bladder emptying- Per Historica l records BETI Ochoa, [facility] 5 08:59:59 Vaginal dryness 44676741 Active 2024 Per Historica l records BETI Ochoa, [facility] 5 08:59:59 Problem Notes None recorded. Procedures Surgical History Date Name Laterality Status Provider Name and Address Organization Details Recorded Time 8 Biopsy of breast open completed Maggy Juan RN [facility] 10/21/2024 12:45:51 8 biopsy completed Maggy Juan RN [facility] 10/21/2024 12:46:47 ligation of fallopian tube completed Maggy Juan RN [facility] 10/24/2024 15:26:26 surgical procedure completed Maggy Juan RN [facility] 10/24/2024 15:27:33 Breast reduction completed Maggy Juan RN [facility] 10/27/2024 08:51:39 Imaging Results None recorded. Procedure Notes None recorded. Medical Equipment None Reported. Allergies Allergen ID Allergen Name Allergen Category Reaction Reaction Severity Criticality Documentation Date Start Date Code Code System Note Provider Name and Address Organization Details Recorded Time 567181 penicilli n G Not available itching rash Not available Not available Not available 10/24/2024 7980 RxNorm Per Histo rical recor ds BETI Ochoa [facility] 5 15:21:51 948689 cefazolin medicatio n hives itching rash Not available Not available Not available Not available 10/24/2024 2180 RxNorm Per Histo rical recor tani Juan RN null, [facility] 5 15:23:40 266763 Product containin g penicilli n and antibioti c (product) medicatio n rash Not available Not available 10/24/2024 72493 05 SNOMED Per Histo rical recor tani Juan RN null, [facility] 5 15:25:18 Medications Name Sig Start Date [...] Address Organization Details Last Updated DateTime 09/30/2024 91785.23 g Flako Estrada MA [facility] 09/30/2024 09:26:17 Date Recorded Body mass index (BMI) Body height Provider Name and Address Organization Details Last Updated DateTime 09/30/2024 24 kg/m2 154.94 cm Flako Estrada MA [facility] 09/30/2024 09:26:27 Date Recorded Heart rate Provider Name an d Address Organization Details Last Updated DateTime 09/30/2024 70 /min Flako Estrada MA [facility] 09/30/2024 09:37:58 Date Recorded Oxygen saturation Oxygen saturation in Arterial blood by Pulse oximetry Provider Name and Address Organization Details Last Updated DateTime 09/30/2024 99 % 99 % Flako Estrada MA [facility] 09/30/2024 09:38:13 Date Recorded Systolic blood pressure Diastolic blood pressure Provider Name and Address Organization Details Last Updated DateTime 09/30/2024 112 mm[Hg] 76 mm[Hg] Flako Estrada MA [facility] 09/30/2024 09:37:55 Social History Question Answer Notes LastModified by Organizat ion Details LastModified Time Tobacco Smoking Status Never Smoker Flako Estrada MA [facility] 09/30/2024 09:35:09 What Was The Date Of [...] Td(adult) unspecified formulation 03/20/2009 completed BETI Ochoa, [facility] 10/21/2024 12:09:11 Hep B, unspecified formulation 09/06/2013 completed BETI Ochoa, [facility] 10/21/2024 12:09:53 COVID-19, mRNA, LNP-S, PF, 25 mcg/0.25 mL 01/15/2021 completed BETI Ochoa, [facility] 10/27/2024 11:54:12 influenza, unspecified formulation 09/25/2022 completed BETI Ochoa, [facility] 10/21/2024 12:19:44 MMR 1977 completed BETI Ochoa, [facility] 10/27/2024 08:31:39 influenza, unspecified formulation 06/14/2021 completed BETI Ochoa, [facility] 10/27/2024 08:41:06 influenza, unspecified formulation 07/07/2020 completed BETI Ochoa, [facility] 10/27/2024 11:48:59 COVID-19, mRNA, LNP-S, PF, 30 mcg/0.3 mL dose, vickie-sucrose 09/12/2021 completed BETI Ochoa, [facility] 10/27/2024 11:51:03 COVID-19, mRNA, LNP-S, PF, 25 mcg/0.25 mL 02/12/2021 completed BETI Ochoa, [facility] 10/27/2024 11:56:17 Past Encounters Encounter ID Performer Location Encounter Start Date Encounter Closed Date Diagnosis/Indication Diagnosis SNOMED-CT Code Diagnosis ICD10 Code Diagnosis Note [id number] JENNI IRBY , [facility], OFF[address] [place] [address] 09/30/2024 09:18:40 09/30/2024 10:18:40 Active or passive immunization 881114128 Z23 FluTd/tdap Lumbar radiculopathy 128 594079 M54.16 Right lumbar radiculopa thyGI upset with ibuprofen - prefers to avoid.Cont inue Tylenol, ASA, heat, and stretching as tolerated. Will arrange PT. Migraine 35144623 G43.90 9 Frequent migraines responsive to rizatripta [...] month or sooner PRN. Menopausal flushing 1983 31255 N95.1 X6 months with amenorrhea . Hot flashes are impairing sleep, which in turn likely worsening migraines. Plan as above. Health Concerns Section Related Observation LastModified by Organization Detai ls LastModified Time None Recorded Concern Status LastModified by Organization Details LastModified Time None Recorded Advance Directives Directive None Recorded Payers Encounter Date Sequence Insurance Name Policy Number Policy Hernández Covered Member ID Hernández Member ID Guarantor Name 09/30/2024 1 [place] [id number] Antelmo Anglin [id number] Antelmo Anglin Notes Date Note Type Note Provider Name and Address Organization Details Recorded Time 09/30/2024 text/html Patient presents to office today for concern about multiple issues. New patient. hourly sign language interpreter services used.Last PCP = [place]. Mac[place] [facility] [place]Migraines with improvement from rizatriptan 10mg. Headache [...] back.-Concern about high cholesterol.-Appt with urology at [facility] 10/27/24 for burning with urination. No HX UTIs. Need records. JENNI IRBY [address] [place] [address], [place], [address], [facility] 09/30/2024 11:10:47 OBGyn Episode No OBEpisode recorded.
== END 2024-10-27 15:53 | disposition home or self-care (01) ==
PROVIDERS: PCP Internal Medicine; Visit Provider Nurse Practitioner Family
DX: R39.16 Straining to void (principal); R39.14 Feeling of incomplete bladder emptying; N39.43 Post-void dribbling; Z13.9 Encounter for screening, unspecified
CPT/HCPCS: 99204

== ENCOUNTER → 2024-10-27 15:15 | Outpatient (BNVA) | payer BC, SELFPAY | PROVIDERS: PCP Internal Medicine; Visit Provider Nurse Practitioner Family | DX: R39.16 Straining to void (principal); R39.14 Feeling of incomplete bladder emptying; N39.43 Post-void dribbling | CPT/HCPCS: 51798; 81003 ==

== ENCOUNTER 2025-01-11 15:53 | Outpatient (REF) | payer BC, SELFPAY ==
--- NOTE | ~2025-01-11 | US_ITS ---
CLINICAL HISTORY: N39.43 - Post-void dribbling US Renal Comparison: None Findings: Right kidney normal size and echotexture, 10.4 cm length. Left kidney normal size and echotexture, 10.3 cm length. 4 mm nonobstructing calculus noted within the midpole. No collecting system dilatation of either kidney. Normal color Doppler. Urinary bladder is unremarkable. Prevoid volume 206 mL. Postvoid volume 9 mL. Bilateral ureteral jets are visualized. IMPRESSION: Nonobstructing left renal calculus. Otherwise unremarkable. This document has been electronically signed by: Lenard Jaquez MD on 01/12/2025 12:53:11
--- OUTSIDE RECORDS SUMMARY | 2025-01-11 17:39 | XMS_ITS | Data Portability ---
Author Organization [facility], , [facility] Address [address] [place] [address] Care Team Providers Care Broach Trouble Shooter Name Role Phone ROXY LESLIE Primary Care Provider [facility] Urologist Assessment No assessment recorded. Plan of Treatment Reminders Order Date Submit Date Provider Last Modified By Organization Details Last Modified Time Details Appointments Wellness Visit 30 2024 04:00P M JENNI IRBY Not available Not available Not available Lab hepatiti s C virus Ab, serum 2024 025 [facility], [address] [place] [address], [id number], 11/09/2024 17:18:35 lipid panel, serum 2024 025 [facility], [address] [place] [address], [address], 11/09/2024 14:02:31 BMP, serum or plasma 2024 025 [facility], [address] [place] [address], [address], 11/09/2024 14:02:30 CBC 2024 025 [facility], [address] [place] [address], [address], 11/08/2024 16:41:35 Referral orthoped ic surgeon referral - hx ulnar nerve decompre ssion 6 years ago with benefit, symptoms returnin g and little relief with anti- inflamma carey goodman 2024 025 paco Valenzuela MD, [address] [place] [address] , [address], [place], [address], 01/05/2025 07:21:47 physical therapis t referral - lumbar radiculo katerine 2023 024 [facility], [address], [place], [address], 09/30/2024 16:57:14 Procedures colonosc opy procedur e (PROC) [email or web address] [place] [address] Gastroenterol ogy, [address] [facility], [place], [address], 11/02/2024 08:32:56 Surgeries None recorded . Imaging XR, elbow - right 2024 025 [facility] (Imaging), [address] [place] [address] , [place], [address], 11/08/2024 15:31:35 Medication Orders diclofen ac 1 % topical gel [address] [facility] #[id number], [address] [place], [place], [phone], 12/23/2024 12:31:18 medroxyp rogester one 5 mg tablet [address] [facility] #[id number], [address] [place], [place], [id number], 11/08/2024 14:36:50 estradio l 0.025 mg/24 hr weekly transder mal patch [address] [facility] #[id number], [address] [place], [place], [phone], 11/01/2024 17:13:35 venlafax ine ER 37.5 mg capsule, extended release 24 hr 2023 025 [id number], [address], [place], [phone], 11/01/2024 16:58:10 Patient TargetsNo targets recorded. Patient InstructionsNo instructions recorded. Reason for Referral Physical Therapist Referral for Lumbar radiculopathy lumbar radiculopathy Referring Physician: Roxy Leslie, [facility], Encounter Date: 09/30/2024 Orthopedic Surgeon Referral for Ulnar neuropathy of right arm hx ulnar nerve decompression 6 years ago with benefit, symptoms returning and little relief with anti- inflammatory, brace Referring Physician: Roxy Leslie [facility], Encounter Date: 12/23/2024 Results Created Date Observation Date Name Description Value Unit Range Abnormal Flag Note LastModifiedBy Organization Detail LastModifiedTime 11/08/1911/08/2024 CBC WBC 5.60 K/? ? ?L 3.98-1 0.04 Not Available [address], [address], 11/08/2024 16:41:35 11/08/19 25 11/08/2024 CBC RBC 4.44 M/? ? ?L 3.93-5 .22 Not Available [address], [address], 11/08/2024 16:41:35 11/08/19 25 11/08/2024 CBC HGB 13.0 g/dL 11.2-1 5.7 Not Available [address], [address], 11/08/2024 16:41:35 11/08/19 25 11/08/2024 CBC HCT 39.8 % 34.1-4 4.9 Not Available [address], [address], 11/08/2024 16:41:35 11/08/19 25 11/08/2024 CBC MCV 89.6 fL 79.4-9 4.8 Not Available [address], [address], 11/08/2024 16:41:35 11/08/19 25 11/08/2024 CBC MCH 29.3 pg 25.6-3 2.2 Not Available [address], [address], 11/08/2024 16:41:35 11/08/19 25 11/08/2024 CBC MCHC 32.7 g/dL 32.2-3 5.5 Not Available [address], [address], 11/08/2024 16:41:35 11/08/19 25 11/08/2024 CBC plt 267 K/? ? ?L 182-36 9 Not Available [address], [address], 11/08/2024 16:41:35 11/08/19 25 11/08/2024 CBC MPV 10.6 fL 9.4-12 .3 Not Available [address], [address], 11/08/2024 16:41:35 11/08/19 25 11/08/2024 CBC neut% 48.6 % 34.0-7 1.1 Not Available [address], [address], 11/08/2024 16:41:35 11/08/19 25 11/08/2024 CBC neut# 2.72 1.56-6 .13 Not Available [address], [address], 11/08/2024 16:41:35 11/08/19 25 11/08/2024 CBC lymph % 41.8 % 19.3-5 1.7 Not Available [address], [address], 11/08/2024 16:41:35 11/08/19 25 11/08/2024 CBC lymph # 2.34 K/? ? ?L 1.18-3 .74 Not Available [address], [address], 11/08/2024 16:41:35 11/08/19 25 11/08/2024 CBC mono% 6.6 % 4.7-12 .5 Not Available [address], [address], 11/08/2024 16:41:35 11/08/19 25 11/08/2024 CBC mono# 0.37 0.24-0 .56 Not Available [address], [address], 11/08/2024 16:41:35 11/08/19 25 11/08/2024 CBC eo% 2.1 % 0.7-5. 8 Not Available [address], [address], 11/08/2024 16:41:35 11/08/19 25 11/08/2024 CBC eo# 0.12 0.04-0 .36 Not Available [address], [address], 11/08/2024 16:41:35 11/08/1911/08/2024 CBC baso% 0.7 % 0.1-1. 2 Not Available [address], [address], 11/08/2024 16:41:35 11/08/1911/08/2024 CBC baso# 0.04 0.00-0 .08 Not Available [address], [address], 11/08/2024 16:41:35 11/08/19 25 11/08/2024 CBC RDW-CV 12.3 % 11.7-1 4.4 Not Available [address], [address], 11/08/2024 16:41:35 11/08/19 25 11/08/2024 CBC Ig% 0.200 % 0.000- 1.500 Ig % >0.5 Indic ates possi ble Left Shift Not Available [address], [address], 11/08/2024 16:41:35 11/08/19 25 11/08/2024 CBC Ig# 0.010 0.000- 0.093 Not Available [address], [address], 11/08/2024 16:41:35 11/08/19 25 11/08/2024 CBC NRBC% 0.0 % 0.0-0. 2 Not Available [address], [address], 11/08/2024 16:41:35 11/08/19 25 11/08/2024 CBC NRBC# 0.000 0.000- 0.012 Not Available [address], [address], 11/08/2024 16:41:35 11/08/19 25 11/09/2024 BASIC METAB OLIC PANEL glucose 103 mg/dL 70-100 high Not Available [address], [address], 11/09/2024 14:02:30 11/08/19 25 11/09/2024 BASIC METAB OLIC PANEL BUN 27 mg/dL 7-18 high Not Available [address], [address], 11/09/2024 14:02:30 11/08/19 25 11/09/2024 BASIC METAB OLIC PANEL creatinine 0.8 mg/dL 0.8-1. 3 Not Available [address], [address], 11/09/2024 14:02:30 11/08/19 25 11/09/2024 BASIC METAB OLIC PANEL B/C 33.8 ratio Not Available [address], [address], 11/09/2024 14:02:30 11/08/19 25 11/09/2024 BASIC METAB OLIC PANEL GFR >=60ML /MIN mL/mi n normal >=60m L/min - Jewell l or midly reduc ed <60mL /min- Decre ased kidne y funct ion <15mL /min - Kidne y failu re [facility] calcu lates estim ated Glome rular Filtr ation Rate (eGFR ) using the Chron ic Kidne y Disea se Epide miolo gy Colla borat ion (CKD- EPI) Equat ion (Zurie r et. al 2020) as recom maryam d by the Natio nal Kidne y Found ation . eGFR is based on age, serum creat inine , and sex. CKD-E PI does not calcu late eGFR by race, does not apply to child yanni (age <18 years ), and shoul d not be used in pregn mark. Not Available [address], [address], 11/09/2024 14:02:30 11/08/19 25 11/09/2024 BASIC METAB OLIC PANEL sodium 141 mmol/ L 136-14 5 Not Available [address], [address], 11/09/2024 14:02:30 11/08/19 25 11/09/2024 BASIC METAB OLIC PANEL potassium 4.5 mmol/ L 3.5-5. 1 Not Available [address], [address], 11/09/2024 14:02:30 11/08/19 25 11/09/2024 BASIC METAB OLIC PANEL chloride 102 mmol/ L 96-107 Not Available [address], [address], 11/09/2024 14:02:30 11/08/19 25 11/09/2024 BASIC METAB OLIC PANEL anion gap 10.1 5.0-15 .0 Not Available [address], [address], 11/09/2024 14:02:30 11/08/1911/09/2024 BASIC METAB OLIC PANEL CO2 29 mmol/ L 21-32 Not Available [address], [address], 11/09/2024 14:02:30 11/08/1911/09/2024 BASIC METAB OLIC PANEL calcium 9.5 mg/dL 8.5-10 .3 Not Available [address], [address], 11/09/2024 14:02:30 11/08/1911/09/2024 LIPID PANEL cholesterol 263 mg/dL <200 mg/dl Manisha able 200-2 39 mg/dl Borde rline High >240 mg/dl High Not Available [address], [address], 11/09/2024 14:02:31 11/08/1911/09/2024 LIPID PANEL triglyceride s 56 mg/dL <150 mg/dL Jewell l 150-1 99 mg/dL Borde rline High 200-4 99 mg/dL High >500 mg/dL Very High Not Available [address], [address], 11/09/2024 14:02:31 11/08/1911/09/2024 LIPID PANEL direct HDL 86 mg/dL <40 mg/dl - Major Risk for CHD >60 mg/dl - Negat leyda Risk for CHD Not Available [address], [address], 11/09/2024 14:02:31 11/08/1911/09/2024 DIREC T LDL direct LDL 149 mg/dL RISK CATEG ORY LDL GOAL _ CHD or CHD Risk Equiv alent s <100 mg/dl (10-y ear risk >20%) 2+ Risk Facto rs <130 mg/dl (10-y ear risk <= 20%) 0-1 Risk Facto r? <160 mg/dl ? Almos t all peopl e with 0-1 risk facto r have a 10 year risk <10%, thus 10 year risk asses ment in peopl e with 0-1 risk facto r is not neces arnoldo. Not Available [address], [place], [address], 11/09/2024 14:02:33 11/08/19 25 11/09/2024 HEPAT ITIS C AB W/REF L TO HCV RNA, QN, PCR hepatitis C antibody NON-RE ACTIVE non-re active normal HCV antib arcelia was non-r eacti ve. There is no labor atory evide nce of HCV infec tion. In most cases , no furth er actio n is requi red. Howev er, if recen t HCV expos ure is suspe cted, a test for HCV RNA (test code 43531 ) is sugge tand. For addit ional infor ilene n pleas e refer to http: //[facility] stdia gnost ics.c om/fa q/FAQ 22v1 (This link is being provi ded for infor matjen nal/ educa dione l purpo ses only. ) Not Available [facility] [address] [place] [address] [address], DANYA Garcia, [address], 11/09/2024 17:18:35 11/02/19 25 05/04/2024 MAMMO , scree [place] No observ ation record ed. [email or web address] [facility] [address] [place] [address] [place], [address], 11/03/2024 07:57:56 11/08/19 25 11/08/2024 XR, elbow CLINIC AL HISTOR Y: Right elbow pain. TECHNI QUE: AP, obliqu e and latera l flexio n views of the right elbow obtain ed. COMPAR ROXANNE: None. FINDIN GS: No fractu re, sublux ation or disloc ation is eviden t. The soft tissue s are unrema rkable . IMPRES ALEC: No acute bone abnorm ality. Ava encarnacion Physic shweta: Kai Godoy [facility]) [address] , [place], [address], 11/09/2024 16:36:09 Result Notes None recorded. Problems Name Problem SNOMED Code Status Onset Date Resolution Date Notes Provider Name and Address Organization Details Recorded Time Reduced libido 3150043 Active 2024 Per Historica l records BETI Ochoa, [facility] 5 08:59:59 Perimenop ausal state 19234124170 9104 Active 2024 Per Historica l records Maggy Juan RN null, [facility] 5 08:59:59 Migraine 89065124 Active 2024 Per Historica l records Maggy Juan RN null, [facility] 5 08:59:59 Galactorr hea not associate d with childbirt h 91001184 Active 2024 Per Historica l records BETI Ochoa, [facility] 5 08:59:59 Retention of urine 588687868 Active 2024 with incomplet e bladder emptying- Per Historica l records BETI Ochoa, [facility] 5 08:59:59 Vaginal dryness 18161018 Active 2024 Per Historica l records BETI Ochoa, [facility] 5 08:59:59 Ulnar neuropath y of right arm 00405787672 9108 Active 2024 JENNI IRBY [address] [place] [address], [address] , [facility] 5 12:35:13 Anxiety 88504460 Active 2024 JENNI IRBY [address] [place] [address], [phone] , [facility] 12:35:20 Problem Notes None recorded. Procedures Surgical History Date Name Laterality Status Provider Name and Address Organization Details Recorded Time 8 Biopsy of breast open completed Maggy Juan RN [facility] 10/21/2024 12:45:51 8 biopsy completed Maggy Juan RN [facility] 10/21/2024 12:46:47 ligation of fallopian tube completed Maggy Juan RN [facility] 10/24/2024 15:26:26 surgical procedure completed Maggy Juan RN [facility] 10/24/2024 15:27:33 Breast reduction completed Maggy Juan RN [facility] 10/27/2024 08:51:39 Imaging Results Imaging Date Name Status LastModified by Organiz ation Details LastModified Time 05/04/2024 MAMMO, screening completed [email or web address] [facility] [address] [place], [address], 11/03/2024 07:57:56 11/08/2024 XR, elbow completed [facility] [address] [place], [address], 11/09/2024 16:36:09 Procedure Notes None recorded. Medical Equipment None Reported. Allergies Allergen ID Allergen Name Allergen Category Reaction Reaction Severity Criticality Documentation Date Start Date Code Code System Note Provider Name and Address Organization Details Recorded Time 713626 penicilli n G Not available itching rash Not available Not available Not available 10/24/2024 7980 RxNorm Per Histo rical recor ds BETI Ochoa [facility] 15:21:51 309159 cefazolin medicatio n hives itching rash Not available Not available Not available Not available 10/24/2024 2180 RxNorm Per Histo rical recor ds BETI Ochoa [facility] 15:23:40 734226 Product containin g penicilli n (product) medicatio n rash Not available Not available 10/24/2024 97826 8001 SNOMED Per Histo rical recor ds Maggy Juan RN [facility], [facility] 5 15:25:18 Medications Name Sig Start Date Stop Date Status Note LastModified by Organization Details LastModified Time methocarb dulce 500 mg tablet TAKE 1 TABLET BY MOUTH THREE TIMES DAILY FOR 7 DAYS NEEDED FOR MUSCLE PAIN 12/23 completed Not Available Not Available Not Available venlafaxi ne ER 37.5 mg capsule,e xtended release 24 hr TAKE 1 CAPSULE BY MOUTH DAILY FOR MIGRAINE AND HOT FLASHES PREVENTI ON 11/01 completed excessiv e sleepine ss Not Available Not Available Not Available medroxypr ogesteron e 5 mg tablet TAKE 1 TABLET BY MOUTH EVERY DAY active Not Available Not Available No t Available rizatript an 10 mg tablet TAKE 1 TABLET BY MOUTH EVERY 2 TO 4 HOURS NEEDED FOR MIGRAINE HEADACHE . DO NOT EXCEED 3 DOSES PER 24 HOURS active Not Available Not Available No t Available aspirin 81 mg tablet,de layed release TAKE 1 TABLET BY MOUTH DAILY active Not Available Not Available No t Available estradiol 0.025 mg/24 hr weekly transderm al patch Apply 1 patch twice a week by transder mal route, for hot flashes. 2024 active Not Available Not Available Not Avai lable amitripty line 25 mg tablet TAKE 1 TABLET BY MOUTH DAILY AT BEDTIME 11/01 completed Not Available Not Available Not Available tamsulosi n 0.4 mg capsule TAKE 1 CAPSULE BY MOUTH AT BEDTIME active Not Available Not Available No t Available rizatript an 10 mg disintegr ating tablet Take 1 tablet by oral route as directed . 11/01 completed Not Available Not Available Not Available cephalexi n 500 mg capsule TAKE 1 CAPSULE BY MOUTH EVERY 8 HOURS FOR 7 DAYS 11/01 completed Not Available Not Available Not Available buspirone 7.5 mg tablet TAKE 1 TABLET BY MOUTH TWICE A DAY 11/01 completed Not Available Not Available Not Available bisacodyl 5 mg tablet,de layed release TAKE 4 TABLETS BY MOUTH ONCE 12/23 completed Not Available Not Available Not Available ondansetr on 4 mg disintegr ating tablet PLACE 1 TABLET UNDER THE TONGUE EVERY 8 HOURS NEEDED FOR NAUSEA 12/23 completed Not Available Not Available Not Available cholecalc iferol (vitamin D3) 25 mcg (1,000 unit) capsule TAKE 1 CAPSULE BY MOUTH DAILY active Not Available Not Available No t Available clonazepa m 0.125 mg disintegr ating tablet 1 TO 2 TABLETS UNDER THE TONGUE NEEDED SEVERE ANXIETY/ PANIC UP TO TWICE DAILY active Not Available Not Available No t Available duloxetin e 20 mg capsule,d elayed release Take 1 capsule every day by oral route. active Not Available Not Available No t Available Vitamin D 1 daily active Not Available Not Av ailable Not Available Asprin Ec Low Dose 1 daily 11/01 completed Not Available Not Available Not Available diclofena c 1 % topical gel APPLY 2 GRAMS TO THE AFFECTED AREA(S) BY TOPICAL ROUTE 4 TIMES PER DAY 2024 active Not Available Not Available Not Avai lable GaviLyte- G 236 gram-22.7 4 gram-6.74 gram-5.86 gram oral solution MIX AND DRINK DIRECTED 12/23 completed Not Available Not Available Not Available Lyllana 0.025 mg/24 hr transderm al patch APPLY 1 PATCH TOPICALL Y TO THE SKIN 2 TIMES A WEEK FOR HOT FLASHES active Not Available Not Available No t Available Vitals Date Recorded Body weight Body mass index (BMI) Body height Heart rate Oxygen saturation Oxygen saturation in Arterial blood by Pulse oximetry Systolic blood pressure Diastolic blood pressure Provider Name and Address Organization Details Last Updated DateTime 4 41378.2 3 g 24 kg/m2 154.94 cm 70 /min 99 % 99 % 112 mm[Hg] 76 mm[Hg] [facility] 4 09:37:55 Date Recorded Body height Body mass index (BMI) Body weight Heart rate Oxygen saturation Oxygen saturation in Arterial blood by Pulse oximetry Systolic blood pressure Diastolic blood pressure Provider Name and Address Organization Details Last Updated DateTime 5 154.94 cm 24.4 kg/m2 66840.1 2 g 73 /min 99 % 99 % 104 mm[Hg] 64 mm[Hg] Flako Estrada MA [facility] 5 16:27:54 Date Recorded Body height Body mass index (BMI) Body weight Heart rate Oxygen saturation Oxygen saturation in Arterial blood by Pulse oximetry Systolic blood pressure Diastolic blood pressure Provider Name and Address Organization Details Last Updated DateTime 5 154.94 cm 24.4 kg/m2 03447.8 2 g 80 /min 99 % 99 % 108 mm[Hg] 66 mm[Hg] Catarinomicheline Estrada MA [facility] 14:06:38 Date Recorded Body height Body mass index (BMI) Body weight Heart rate Systolic blood pressure Diastolic blood pressure Provider Name and Address Organization Details Last Updated DateTime 5 154.94 cm 24.6 kg/m2 79407.0 1 g 80 /min 116 mm[Hg] 78 mm[Hg] Miguelina Nuñez MA [facility] 5 12:01:14 Social History Question Answer Notes LastModified by Organizat ion Details LastModified Time Tobacco Smoking Status Never Smoker Flako Estrada MA [facility] 09/30/2024 09:35:09 What Was The Date Of Your Most Recent Tobacco Screening? 11/08/2024 Information not available 11/08/2024 Do You Or Have You Ever Used [...] Time Td(adult) unspecified formulation 03/20/2009 [facility] 12:09:11 Hep B, unspecified formulation 09/06/2013 gary Juan RN [facility] 10/21/2024 12:09:53 COVID-19, mRNA, LNP-S, PF, 25 mcg/0.25 mL 01/15/2021 completed Maggy Juan RN null, [facility] 10/27/2024 11:54:12 influenza, unspecified formulation 09/25/2022 completed Maggy Juan RN null, [facility] 10/21/2024 12:19:44 MMR 1977 completed Maggy Juan RN null, [facility] 10/27/2024 08:31:39 influenza, unspecified formulation 06/14/2021 completed Maggy Juan RN null, [facility] 10/27/2024 08:41:06 influenza, unspecified formulation 07/07/2020 completed BETI Ochoa, [facility] 10/27/2024 11:48:59 COVID-19, mRNA, LNP-S, PF, 30 mcg/0.3 mL dose, vickie-sucrose 09/12/2021 completed BETI Ochoa, [facility] 10/27/2024 11:51:03 COVID-19, mRNA, LNP-S, PF, 25 mcg/0.25 mL 02/12/2021 completed BETI Ochoa, [facility] 10/27/2024 11:56:17 Past Encounters Encounter ID Performer Location Encounter Start Date Encounter Closed Date Diagnosis/Indication Diagnosis SNOMED-CT Code Diagnosis ICD10 Code Diagnosis Note [id number] JENNI IRBY , [facility], OFFICE [address] [place] [address] 09/30/2024 09:18:40 09/30/2024 10:18:40 Active or passive immunization 561938119 Z23 FluTd/tdap Lumbar radiculopathy 128 640854 M54.16 Right lumbar radiculopa thyGI upset with ibuprofen - prefers to avoid.Cont inue Tylenol, ASA, heat, and stretching as tolerated. Will arrange PT. Migraine 01410138 G43.90 9 Frequent migraines responsive to rizatripta [...] month or sooner PRN. Menopausal flushing 1983 56264 N95.1 X6 months with amenorrhea . Hot flashes are impairing sleep, which in turn likely worsening migraines. Plan as above. [id number] JENNI IRBY, [facility], [address] [place] [address] 11/01/2024 16:01:27 11/01/2024 19:22:12 Migraine 47958731 G43.909 Frequent migraines responsive to rizatripta n. Looking for preventati ve options.AD R sleepiness with venlafaxin e. Will try estrogen patch as below. Active or passive immunization 720630154 Z23 Flu: declinestd ap: declines Screening mammography 24 705476 Z12.31 Done at [facility] Screening for malignant neoplasm of colon 978033924 Z12.11 Referral for a DIRECT booked colonoscop y. This patient is a healthy ASA Class 1 or 2 patient (only mild systemic disease), or a STABLE, well controlled insulin dependent diabetic. They do not have serious cardiac disease ie LA/angiopl asty within 1 year, symptomati c CHF; renal failure with CKD 4 or 5; take Coumadin, Plavix, Aggrenox, etc. Screening for disorder 615064206 Z11.59 Menopausal flushing 1983 80704 N95.1 X6 months with amenorrhea . Hot flashes are impairing sleep, which in turn likely worsening migraines. ADR sleepiness with venlafaxin e. Will try estrogen patch as below. Pain of ri ght elbow joint 3795822655 8685216 M25.521 Suspect epicondyli tis. Some pain, numbness and tingling. 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 Rec elbow brace at night. [id number] JENNI IRBY, [facility], [address] [place] [address] 11/08/2024 13:55:40 11/10/2024 10:18:59 Active or passive immunization 781782475 Z23 Flu: declinesTd ap: declines Screening for malignant neoplasm of colon 588529956 Z12.11 Appt 11/21/24 Pain of ri ght elbow joint 4518655105 2516562 M25.521 Pain/ paresthesi as in elbow radiating through arm, worse at night. HX surgery 7-8 years ago, unsure what type. Suspect epicondyli tis.Start with XR though advised may not show much.Unruly nue elbow brace, pending labs can start ibuprofen. Family his tory of Cardiovascular disease 578639743 Z82.49 Migraine 96433037 G43.90 9 Frequent migraines responsive to rizatripta n.Improvem ent with estrogen patches thus far for prevention - continue. Screening mammography 24 561861 Z12.31 Done at [facility] Menopausal flushing 1983 24[address] N95.1 X6 months with amenorrhea . Hot flashes are impairing sleep, which in turn likely worsening migraines. Persisting despite estrogen patches - discussed trying for a few more days and can inc dose as needed.Sta rt progestero ne for endometria l cancer prevention . 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 Had decompress ion 6 years ago at [facility] with improvemen t and would like to try again. Little relief with NSAIDs, activity mods, elbow brace.Can try diclofenac gel, will re-refer. Anxiety 14778396 F41.9 Started on duloxetine 20mg, clonazepam 0.125mg (1-2 tabs) as needed BID.Follow ing with [facility], psychiatri st.Doing FMLA with psychiatry . Health Concerns Section Related Observation LastModified by Organization Detai ls LastModified Time None Recorded Concern Status LastModified by Organization Details LastModified Time None Recorded Advance Directives Directive None Recorded Payers Encounter Date Sequence Insurance Name Policy Number Policy Hernández Covered Member ID Hernández Member ID Guarantor Name 09/30/2024 1 [place] [id number] Kedsy Colon [id number] Kedsy Colon 11/01/2024 1 [place] [id number] Kedsy Colon [id number] Kedsy Colon 11/08/2024 1 [place] [id number] Kedsy Colon [id number] Kedsy Colon 12/23/2024 1 [place] [id number] Kedsy Colon [id number] Kedsy Colon Notes Date Note Type Note Provider Name and Address Organization Details Recorded Time 09/30/2024 text/html Patient presents to office today for concern about multiple issues. New patient. 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 Macdonald with [facility] -Migraines with improvement from rizatriptan 10mg. Headache weekly. Family HX migraines. Almost always left side. Associated with prodrome of blurry vision. No nausea, vomiting, difficulty balance or speech, chest pain. Hydrates well, could be better in winter. Some stress with son. Starting therapy with [facility]. Could improve sleep, has hot flashes x1 year. Perimenopause, 6 months without period.-Daily nasal congestion.-Jeannettean t right leg pain from lower back to heel. Had laser therapy for varicose veins. Some tingling, pain worst with walking.-Surgery on right hand/ elbow, when cold has numbness through hand.-Tingling in shoulders/ back.-Concern about high cholesterol.-Appt with urology at [facility] 10/27/24 for burning with urination. No HX UTIs. Need records. JENNI IRBY [address] [place], [address], [facility] 09/30/2024 11:10:47 11/01/2024 text/html 11/01/24Patient presents to office today for follow up of migraines and hot flashes.Venlafaxine ER 37.5mg made her too tired next AM when she took it at night. And kept her up at night when she took during day.No history breast or endometrial cancer, no tobacco, no VTE, no liver impairment.LMP 6 months ago.Migraines and hot flashes worse since then. 09/30/24Patient presents to office today for concern about multiple issues. New patient. 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 Macdonald with [facility] -Migraines with improvement from rizatriptan 10mg. Headache weekly. Family HX migraines. Almost always left side. Associated with prodrome of blurry vision. No nausea, vomiting, difficulty balance or speech, chest pain. Hydrates well, could be better in winter. Some stress with son. Starting therapy with [facility]. Could improve sleep, has hot flashes x1 year. Perimenopause, 6 months without period.-Daily nasal congestion.-Constan t right leg pain from lower back to heel. Had laser therapy for varicose veins. Some tingling, pain worst with walking.-Surgery on right hand/ elbow, when cold has numbness through hand.-Tingling in shoulders/ back.-Concern about high cholesterol.-Appt with urology at [facility] 10/27/24 for burning with urination. No HX UTIs. Need records. JENNI IRBY [address] [place], [address], [facility] 11/01/2024 17:17:04 11/08/2024 text/html /11/08/24Right arm pain. Numbness and tingling.3 weeks, acutely worsened.Got elbow brace on Thursday. Somewhat helpful.Pain radiates up into neck and down into wrist. Hurts when squeezing wrist.Much worse at night. Swell/ stiff in morning.HX surgery on elbow 7-8 years ago at [facility]. No HX injections. Taking Tylenol. 11/01/24Patient presents to office today for follow up of migraines and hot flashes.Venlafaxine ER 37.5mg made her too tired next AM when she took it at night. And kept her up at night when she took during day.No history breast or endometrial cancer, no tobacco, no VTE, no liver impairment.LMP 6 months ago.Migraines and hot flashes worse since then. 09/30/24Patient presents to office today for concern about multiple issues. New patient. 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 Macdonald with [facility] -Migraines with improvement from rizatriptan 10mg. Headache weekly. Family HX migraines. Almost always left side. Associated with prodrome of blurry vision. No nausea, vomiting, difficulty balance or speech, chest pain. Hydrates well, could be better in winter. Some stress with son. Starting therapy with [facility]. Could improve sleep, has hot flashes x1 year. Perimenopause, 6 months without period.-Daily nasal congestion.-Constan t right leg pain from lower back to heel. Had laser therapy for varicose veins. Some tingling, pain worst with walking.-Surgery on right hand/ elbow, when cold has numbness through hand.-Tingling in shoulders/ back.-Concern about high cholesterol.-Appt with urology at [facility] 10/27/24 for burning with urination. No HX UTIs. Need records. JENNI IRBY [address] [place] [address], [place], [address], [facility] 11/08/2024 14:43:21 12/23/2024 text/html 12/23/24Here with persistent right arm pain for 6 years, worsening in last few months.HX ulnar nerve decompression surgery with relief in 2019.Has been using NSAIDs, Tylenol, and brace without relief. 11/08/24Right arm pain. Numbness and tingling.3 weeks, acutely worsened.Got elbow brace on Thursday. Somewhat helpful.Pain radiates up into neck and down into wrist. Hurts when squeezing wrist.Much worse at night. Swell/ stiff in morning.HX surgery on elbow 7-8 years ago at [facility]. No HX injections. Taking Tylenol. 11/01/24Patient presents to office today for follow up of migraines and hot flashes.Venlafaxine ER 37.5mg made her too tired next AM when she took it at night. And kept her up at night when she took during day.No history breast or endometrial cancer, no tobacco, no VTE, no liver impairment.LMP 6 months ago.Migraines and hot flashes worse since then. 09/30/24Patient presents to office today for concern about multiple issues. New patient. 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 Macdonald with [facility] -Migraines with improvement from rizatriptan 10mg. Headache weekly. Family HX migraines. Almost always left side. Associated with prodrome of blurry vision. No nausea, vomiting, difficulty balance or speech, chest pain. Hydrates well, could be better in winter. Some stress with son. Starting therapy with [facility]. Could improve sleep, has hot flashes x1 year. Perimenopause, 6 months without period.-Daily nasal congestion.-Constan t right leg pain from lower back to heel. Had laser therapy for varicose veins. Some tingling, pain worst with walking.-Surgery on right hand/ elbow, when cold has numbness through hand.-Tingling in shoulders/ back.-Concern about high cholesterol.-Appt with urology at [facility] 10/27/24 for burning with urination. No HX UTIs. Need records. JENNI IRBY [address] [place] [address], [address], [facility] 12/23/2024 12:36:15 OBGyn Episode No OBEpisode recorded.
--- OUTSIDE RECORDS SUMMARY | 2025-01-11 17:39 | XMS_ITS | Clinical Summary ---
Author Organization [facility] Address [address] [place] [address] Care Team Providers Care Transportation Security Officer Name Role Phone Unavailable Primary Care Provider Unavailabl e Source Comments PLEASE NOTE, if this patient is a minor, it may be UNLAWFUL to discuss sensitive information that is contained in these records (such as FAMILY PLANNING, MENTAL HEALTH or SUBSTANCE ABUSE) with the minor patient's parent or other person without the patient's specific authorization.[facility] Immunizations Immunization Administration Dates Next Due Moderna COVID-19 Vaccine, re d cap blue label, 12+ Primary Series 02/12/2021,01/15/2021 Social History Tobacco Use Types Packs/Day Years Used Date Smoking Tobacco: Never Assessed Social Connections Answer Date Recorded Social Connections and Isolation 0 03/04/2024 Financial Resource Strain Answer Date R ecorded Financial Resource Strain 0 2023 Stress Answer Date Recorded Stress 0 03/04/2024 Physical Activity Answer Date Recorded Physical Activity 0 03/04/2024 Food Insecurity Answer Date Recorded Food 0 03/04/2024 Transportation Needs Answer Date Record ed Transportation 0 03/04/2024 Housing Stability Answer Date Recorded Housing 0 03/04/2024 Safety and Environment Answer Date Jose rded Safety 0 03/04/2024 Utilities Answer Date Recorded Utilities 0 03/04/2024 Employment Answer Date Recorded Employment 0 03/04/2024 Comments Unknown Sex and Gender Information Value Date Recorded Sex Assigned at Not on file Legal Sex Female 12:18 PM PDT Gender Identity Not on file Sexual Orientation Not on file Plan of Treatment Health Maintenance Due Date Last Done Comments Anxiety Screening 1976 Diabetes Screening 1976 HPV Screening 1976 Hepatitis C Screening 1976 Lipid Screening 1976 Pap + HPV 1976 Tobacco Screening 1976 HIV Screening 1991 Relationship Safety Screening/Counseling 1991 Hypertension Screening (#1) 1994 Imm-Hepatitis B (1 of 3 - 19 + 3-dose series) 1995 Cervical Cancer Screening 1997 Pap Smear 1997 Imm-DTaP/Tdap/Td (1 - Tdap) 03/21/2009 03/20/2009 Breast Cancer Screening (Mammogram) 2016 CT Colonography 2021 Colonoscopy 2021 Colorectal Cancer Screening 2021 FIT/gFOBT 2021 Fecal DNA 2021 Flexible Sigmoidoscopy 2021 Elf-DPQJN-23 ( season) 2024 021, 01/15/2021 Imm-Influenza (#1) 2024 07/07/2020, 1 10/06/2018, 09/06/2013, Additional history exists Alcohol and Drug Screen 10/05/2024 Depression Annual Screen 10/05/2024 Cervical Ablation/Cold-Knife Conization Discontinued Cervical Cryotherapy Discontinued Colposcopy Discontinued Endometrial Biopsy Discontinued Excision/Leep Discontinued HPV Genotyping Discontinued Vaginal Pap Discontinued Vulvoscopy Discontinued Insurance [email or web address] PLAN Member Subscriber Plan / Payer (Ef fective 2021-Present) Name:Antelmo Anglin Relation to Subscriber:Self Name:Antelmo Anglin Payer ID:[id number] Group ID:Not on file Type:Medicaid Address: [facility] [address] [place] [address]
--- OUTSIDE RECORDS SUMMARY | 2025-01-11 17:39 | XMS_ITS | Data Portability ---
Author Organization [facility], FP, EHC, OFFICE Address [address] [place] [address] Care Team Providers Care Elementary Reading Specialist Name Role Phone ROXY RAMIREZ Primary Care Provider [phone] [facility] Urologist Assessment No assessment recorded. Plan of Treatment Reminders Order Date Submit Date Provider Last Modified By Organization Details Last Modified Time Details Appointments Wellness Visit 30 2024 04:00P M JENNI IRBY Not available Not available Not available Lab hepatiti s C virus Ab, serum 2024 025 [facility], [address] [place] [address], [address], 11/09/2024 17:18:35 lipid panel, serum 2024 025 [facility], [address] [place] [address], [address], 11/09/2024 14:02:31 BMP, serum or plasma 2024 025 [facility], [address] [place] [address], [address], 11/09/2024 14:02:30 CBC 2024 025 [facility], [address] [place] [address], [address], 11/08/2024 16:41:35 Referral orthoped ic surgeon referral - hx ulnar nerve decompre ssion 6 years ago with benefit, symptoms returnin g and little relief with anti- inflamma carey goodman 2024 025 paco Valenzuela MD, [address] [place] [address] , [place] [address], [place], [address], 01/05/2025 07:21:47 physical therapis t referral - lumbar radiculo katerine 2023 024 [facility], [address] [facility], [place], [address], 09/30/2024 16:57:14 Procedures colonosc opy procedur e (PROC) [email or web address] [facility], [address] [place] [address], [address], 11/02/2024 08:32:56 Surgeries None recorded . Imaging XR, elbow - right 2024 025 [facility] (Im[facility]), [address] [place] [address] , [place], [address], 11/08/2024 15:31:35 Medication Orders diclofen ac 1 % topical gel 2024 025 [facility] #[id number], [address] [place], [place], [phone], 12/23/2024 12:31:18 medroxyp rogester one 5 mg tablet 2024 025 [facility] #[id number], [address] [place], [place], [phone], 11/08/2024 14:36:50 estradio l 0.025 mg/24 hr weekly transder mal patch 2024 025 [facility] #33270, [address], [place], [phone], 11/01/2024 17:13:35 venlafax ine ER 37.5 mg capsule, extended release 24 hr 2023 025 [facility][id number], [address], [place], [id number], 11/01/2024 16:58:10 Patient TargetsNo targets recorded. Patient InstructionsNo instructions recorded. Reason for Referral Physical Therapist Referral for Lumbar radiculopathy lumbar radiculopathy Referring Physician: Roxy Ramirez [facility], Encounter Date: 09/30/2024 Orthopedic Surgeon Referral for Ulnar neuropathy of right arm hx ulnar nerve decompression 6 years ago with benefit, symptoms returning and little relief with anti- inflammatory, brace Referring Physician: Roxy Raimrez [facility], Encounter Date: 12/23/2024 Results Created Date Observation Date Name Description Value Unit Range Abnormal Flag Note LastModifiedBy Organization Detail LastModifiedTime 11/08/1911/08/2024 CBC WBC 5.60 K/? ? ?L 3.98-1 0.04 Not Available [address], [address], 11/08/2024 16:41:35 11/08/19 25 11/08/2024 CBC RBC 4.44 M/? ? ?L 3.93-5 .22 Not Available [address], [address], 11/08/2024 16:41:35 11/08/19 25 11/08/2024 CBC HGB 13.0 g/dL 11.2-1 5.7 Not Available [address], [address], 11/08/2024 16:41:35 11/08/19 25 11/08/2024 CBC HCT 39.8 % 34.1-4 4.9 Not Available [address], [address], 11/08/2024 16:41:35 11/08/19 25 11/08/2024 CBC MCV 89.6 fL 79.4-9 4.8 Not Available [address], [address], 11/08/2024 16:41:35 11/08/19 25 11/08/2024 CBC MCH 29.3 pg 25.6-3 2.2 Not Available [address], [address], 11/08/2024 16:41:35 11/08/19 25 11/08/2024 CBC MCHC 32.7 g/dL 32.2-3 5.5 Not Available [address], [address], 11/08/2024 16:41:35 11/08/19 25 11/08/2024 CBC plt 267 K/? ? ?L 182-36 9 Not Available [address], [address], 11/08/2024 16:41:35 11/08/19 25 11/08/2024 CBC MPV 10.6 fL 9.4-12 .3 Not Available [address], [address], 11/08/2024 16:41:35 11/08/19 25 11/08/2024 CBC neut% 48.6 % 34.0-7 1.1 Not Available [address], [address], 11/08/2024 16:41:35 11/08/19 25 11/08/2024 CBC neut# 2.72 1.56-6 .13 Not Available [address], [address], 11/08/2024 16:41:35 11/08/19 25 11/08/2024 CBC lymph % 41.8 % 19.3-5 1.7 Not Available [address], [address], 11/08/2024 16:41:35 11/08/19 25 11/08/2024 CBC lymph # 2.34 K/? ? ?L 1.18-3 .74 Not Available [address], [address], 11/08/2024 16:41:35 11/08/19 25 11/08/2024 CBC mono% 6.6 % 4.7-12 .5 Not Available [address], [address], 11/08/2024 16:41:35 11/08/19 25 11/08/2024 CBC mono# 0.37 0.24-0 .56 Not Available [address], [address], 11/08/2024 16:41:35 11/08/19 25 11/08/2024 CBC eo% 2.1 % 0.7-5. 8 Not Available [address], [address], 11/08/2024 16:41:35 11/08/19 25 11/08/2024 CBC eo# 0.12 0.04-0 .36 Not Available [address], [address], 11/08/2024 16:41:35 11/08/19 25 11/08/2024 CBC baso% 0.7 % 0.1-1. 2 Not Available [address], [address], 11/08/2024 16:41:35 11/08/19 25 11/08/2024 CBC baso# 0.04 0.00-0 .08 Not Available [address], [address], 11/08/2024 16:41:35 11/08/19 25 11/08/2024 CBC RDW-CV 12.3 % 11.7-1 4.4 Not Available [address], [address], 11/08/2024 16:41:35 11/08/19 25 11/08/2024 CBC Ig% 0.200 % 0.000- 1.500 Ig % >0.5 Indic ates possi ble Left Shift Not Available [address], [address], 11/08/2024 16:41:35 11/08/19 25 11/08/2024 CBC Ig# 0.010 0.000- 0.093 Not Available [address], [address], 11/08/2024 16:41:35 11/08/19 25 11/08/2024 CBC NRBC% 0.0 % 0.0-0. 2 Not Available [address], [address], 11/08/2024 16:41:35 11/08/19 25 11/08/2024 CBC NRBC# 0.000 0.000- 0.012 Not Available [address], [address], 11/08/2024 16:41:35 11/08/19 25 11/09/2024 BASIC METAB OLIC PANEL glucose 103 mg/dL 70-100 high Not Available [address], [address], 11/09/2024 14:02:30 11/08/19 25 11/09/2024 BASIC METAB OLIC PANEL BUN 27 mg/dL 7-18 high Not Available [address], [address], 11/09/2024 14:02:30 11/08/19 25 11/09/2024 BASIC METAB OLIC PANEL creatinine 0.8 mg/dL 0.8-1. 3 Not Available [address], [address], 11/09/2024 14:02:30 11/08/19 25 11/09/2024 BASIC METAB OLIC PANEL B/C 33.8 ratio Not Available [address], [address], 11/09/2024 14:02:30 11/08/19 25 11/09/2024 BASIC METAB [...] Colla borat ion (CKD- EPI) Equat ion (Rob r et. al 2020) as recom maryam d by the Natio nal Kidne y Found ation . eGFR is based on age, serum creat inine , and sex. CKD-E PI does not calcu late eGFR by race, does not apply to child yanni (age <18 years ), and shoul d not be used in pregn mark. Not Available [address], [address], 11/09/2024 14:02:30 11/08/19 25 11/09/2024 BASIC METAB OLIC PANEL sodium 141 mmol/ L 136-14 5 Not Available [address], [address], 11/09/2024 14:02:30 11/08/19 25 11/09/2024 BASIC METAB OLIC PANEL potassium 4.5 mmol/ L 3.5-5. 1 Not Available [address], [address], 11/09/2024 14:02:30 11/08/19 25 11/09/2024 BASIC METAB OLIC PANEL chloride 102 mmol/ L 96-107 Not Available [address], [address], 11/09/2024 14:02:30 11/08/19 25 11/09/2024 BASIC METAB OLIC PANEL anion gap 10.1 5.0-15 .0 Not Available [address], [address], 11/09/2024 14:02:30 11/08/1911/09/2024 BASIC METAB OLIC PANEL CO2 29 mmol/ L 21-32 Not Available [address], [address], 11/09/2024 14:02:30 11/08/1911/09/2024 BASIC METAB OLIC PANEL calcium 9.5 mg/dL 8.5-10 .3 Not Available [address], [address], 11/09/2024 14:02:30 11/08/1911/09/2024 LIPID PANEL cholesterol 263 mg/dL <200 mg/dl Manisha able 200-2 39 mg/dl Borde rline High >240 mg/dl High Not Available [address], [address], 11/09/2024 14:02:31 11/08/1911/09/2024 LIPID PANEL triglyceride s 56 mg/dL <150 mg/dL Jewell l 150-1 99 mg/dL Borde rline High 200-4 99 mg/dL High >500 mg/dL Very High Not Available [address], [address], 11/09/2024 14:02:31 11/08/1911/09/2024 LIPID PANEL direct HDL 86 mg/dL <40 mg/dl - Major Risk for CHD >60 mg/dl - Negat leyda Risk for CHD Not Available [address], [address], 11/09/2024 14:02:31 11/08/1911/09/2024 DIREC T LDL direct [...] r is not neces arnoldo. Not Available [facility] [address] [facility], [place], [address], 11/09/2024 14:02:33 11/08/19 25 11/09/2024 HEPAT ITIS [...] a test for HCV RNA (test code 63690 ) is sugge nell. For addit ional infor ilene king pleas e refer to http: //[facility] stdia gnost ics.c om/fa q/FAQ 22v1 (This link is being provi ded for infor ilene nal/ educa dione l purpo ses only. ) Not Available [facility] [address] [place] [address] Tan B, DANYA Garcia, [address], 11/09/2024 17:18:35 11/02/19 25 05/04/2024 MAMMO , scree hamilton No observ ation record ed. [email or web address] [facility] [address] [place] [address] [place], [address], 11/03/2024 07:57:56 11/08/19 25 11/08/2024 XR, elbow CLINIC AL HISTOR Y: Right elbow pain. TECHNI QUE: AP, obliqu e and latera l flexio n views of the right elbow obtain ed. COMPAR ROXANNE: None. FINDIN GS: No fractu re, sublux ation or disloc ation is eviden t. The soft tissue s are unrema rkable . IMPRES ALEC: No acute bone abnorm ality. Readin g Physic shweta: Kai ia Cross [facility] [address] [place], [address], 11/09/2024 16:36:09 Result Notes None recorded. Procedures Surgical History Date Name Laterality Status Provider Name and Address Organization Details Recorded Time Lucero - Colonoscopy completed Chapito Barker MD [address] [place] [address], [id number], [facility] 11/21/2024 08:26:59 Imaging Results Imaging Date Name Status LastModified by Organiz ation Details LastModified Time 05/04/2024 MAMMO, screening completed [email or web address] [facility] [address] [place], [address], 11/03/2024 07:57:56 11/08/2024 XR, elbow completed [facility] [address], D[place] Hob[place], [address], 11/09/2024 16:36:09 Procedure Notes None recorded. Medical Equipment None Reported. Allergies Allergen ID Allergen Name Allergen Category Reaction Reaction Severity Criticality Documentation Date Start Date Code Code System Note Provider Name and Address Organization Details Recorded Time 184025 penicilli n G Not available hives Not available Not available 11/18/2024 7980 RxNorm Soco Strange RN [facility], [facility] 5 11:41:31 [id number] cefazolin medicatio n rash Not available Not available 11/18/2024 2180 RxDavid Strange RN [facility], [facility] 5 11:42:23 Medications Name Sig Start Date Stop Date [...] Available Not Available No t Available Vitals None Recorded Social History Question Answer Notes LastModified by [employer] ion Details LastModified Time What Was The Date Of Your Most [...] GPAL:G 0 P 0 0 0 0 Past Encounters Encounter ID Performer Location Encounter Start Date Encounter Closed Date Diagnosis/Indication Diagnosis SNOMED-CT Code Diagnosis ICD10 Code Diagnosis Note [id number] JENNI IRBY [facility], OFFICE [address] [place] [address] 09/30/2024 09:18:40 09/30/2024 10:18:40 [id number] JENNI IRBY [facility], OFFICE [address] [place] [address] 11/01/2024 16:01:27 11/01/2024 19:22:12 [id number] JENNI IRBY, [facility], OFFICE [address] [place] [address] 11/08/2024 13:55:40 11/10/2024 10:18:59 [id number] Soco Strange RN Endoscopy , [address] [address] 11/21/2024 07:10:25 11/21/2024 13:48:30 [id number] JENNI IRBY, [facility], OFFICE [address] [place] [address] 12/23/2024 11:50:33 12/23/2024 12:47:27 Health Concerns Section Related Observation LastModified by Organization Detai ls LastModified Time None Recorded Concern Status LastModified by Organization Details LastModified Time None Recorded Advance Directives Directive None Recorded Payers Encounter Date Sequence Insurance Name Policy Number Policy Hernández Covered Member ID Hernández Member ID Guarantor Name 09/30/2024 1 [place] [id number] Kedsy Colon [id number] Kedsy Colon 11/01/2024 1 [place] [id number] Kedsy Colon [id number] Kedsy Colon 11/08/2024 1 [place] [id number] Kedsy Colon [id number] Kedsy Colon 12/23/2024 1 [place] [id number] Kedsy Colon [id number] Kedsy Colon OBGyn Episode No OBEpisode recorded.
== END 2025-01-11 15:54 | disposition home or self-care (01) ==
LOC: HO.US 15:53
PROVIDERS: Visit Provider Nurse Practitioner Family
DX: N39.43 Post-void dribbling (principal); R39.14 Feeling of incomplete bladder emptying; R39.16 Straining to void
CPT/HCPCS: 76770

== ENCOUNTER → 2025-01-11 15:57 | Outpatient (BNV) | payer BC, SELFPAY | PROVIDERS: Visit Provider Radiology Vascular & Interventional Radiology | DX: N39.43 Post-void dribbling (principal); N20.0 Calculus of kidney | CPT/HCPCS: 76770 ==

== ENCOUNTER 2025-01-18 15:43 | Outpatient (AMB) | payer BC, SELFPAY ==
--- NOTE | 2025-01-18 15:46 | A.OFFVIS_ITS ---
Intake Visit Reasons: /US(pending 01/11) Intake Note: Patient presents today for follow up on: incomplete bladder emptying Urology Medications: tamsulosin Blood Thinner: aspirin PVR: 0ml's Business Systems Architect Required: Yes Business Systems Architect Name: Javon [id number] Accompanied by: Self / Same As Patient Allergies cefazolin [CEFAZOLIN] Allergy (Intermediate, Verified 01/18/25 16:02) RASH, HIVES, ITCHINESS Penicillins [PENICILLINS] Allergy (Intermediate, Verified 01/18/25 16:02) RASH penicillin G Allergy (Unknown, Verified 01/18/25 16:02) rash, itching antibiotic unsure name Allergy (Unknown, Uncoded 01/18/25 16:02) unknown Medication List - Last Reconciled 01/18/25 by YARA Hdz aspirin (Adult Aspirin Regimen) 81 mg PO DAILY 90 days cholecalciferol (vitamin D3) 25 mcg PO DAILY 90 days rizatriptan 10 mg PO Q2-4H PRN 30 days tamsulosin 0.4 mg PO BEDTIME 30 days HPI Comments Details: Antelmo is a pleasant 49-year-old Zimbabwean-speaking female patient of Dr. Gutiérrez. She has a past medical history of migraines. She presents to the office today for follow-up. Of note, patient was seen approximately 3 months ago as a new patient for feeling of incomplete bladder emptying, urinary dribbling, and straining to urinate at which time a retroperitoneal ultrasound was ordered for further assessment evaluation in the patient was started on 0.4 mg of Flomax to assist with lower urinary tract symptoms she had been experiencing. Recent renal imaging results were reviewed. 01/27 bilateral kidneys are normal in size and echotexture. Nonobstructing 4 mm calculi in the left kidney. No hydronephrosis noted bilaterally. The urinary bladder is unremarkable. In discussion with the patient today she reports significant improvement in lower urinary tract symptoms with Flomax as prescribed. We did discuss at length the importance of adequate hydration in relation to nephrolithiasis as well as lower urinary tract symptoms. She otherwise denies any bothersome urinary issues or concerns. She does have a history of 2 vaginal births of average size babies in the past. She reports she had been utilizing 2 Monik pads per day however has not needed to since initiation of Flomax. She otherwise denies hematuria, dysuria, foul smelling urine, changes to urinary stream, flank pain, fever, and or chills. We discussed at length potential causes of lower urinary tract symptoms patient was experiencing. In office urinalysis results were reviewed. PVR 0 mL. Continue with pelvic floor exercises at home as discussed. She otherwise offers no other issues or concerns at this time. [facility] Medical History Galactorrhea Migraines Surgical History H/O hand surgery History of reduction surgery of right breast History of bilateral tubal ligation Family History Maternal Aunt Cervical cancer Father Hypertension Mother Diabetes mellitus Social History Housing: Apartment Alcohol intake: never Patient Tobacco Use Status: Never used Tobacco e-Cigarette/Vaping Use: Never Used Second Hand Smoke Exposure: No service: No Current occupational status: employed Current occupational exposures/hazards: No Gender identity: Female Cognitive needs: No Hearing needs: No Vision needs: Yes Female Reproductive History Menstrual Age of Menarche: 14 Review of Systems Const All systems reviewed & are unremarkable except as noted in HPI and below Physical Exam Const General: cooperative, healthy appearing, comfortable, no acute distress, well developed, alert and awake Orientation/consciousness: patient oriented x3 Limitations: no limitations HEENT Head: Yes normal to inspection, Yes normocephalic and Yes atraumatic Ears: hearing grossly normal bilaterally Eyes General: appearance normal, both eyes and all related structures Neck Neck: Yes normal visual inspection and Yes trachea midline Chest Chest palpation & inspection: normal inspection of the chest Resp Effort & Inspection: normal respiratory effort and able to speak in complete sentences Cardio Rate: regular rate GI Inspection: Yes normal to inspection General: Yes no CVA tenderness Back/Spine/Pelvis Back: no CVA tenderness Skin General skin exam: no rashes or lesions noted Neuro General: patient oriented x3 Extrem General: Yes normal to inspection Psych Appearance: grossly normal and well kempt Mental Status: mental status grossly normal Speech and movement: Normal speech and movement present and Clear speech present Affect: normal affect Attitude: cooperative Thought process: Normal thought process present Thought content: Normal thought content present Insight: Fair insight present (Psych) Judgement: Fair judgement present (Psych) Office Procedures Post Void Residual Post Residual Void Post Void Residual (PVR): 0 [id number] Void Residual by ultrasound Results AMB Urinalysis, Automated UA Leukoctes 0 Rosa/uL Last Edit by Powered by [employer] on 01/18/25 16:05 UA Nitrite Last Edit by Powered by [employer] on 01/18/25 16:05 UA Urobilinogen 0.2 mg/dL Last Edit by Powered by [employer] on 01/18/25 16:05 UA Protein 30 mg/dL Last Edit by Powered by [employer] on 01/18/25 16:05 UA pH 9.0 Last Edit by Powered by [employer] on 01/18/25 16:05 UA Blood 0 Martin/uL Last Edit by Powered by [employer] on 01/18/25 16:05 UA Specific [place] 1.005 Last Edit by Powered by [employer] on 01/18/25 16:05 UA Ketone Last Edit by Powered by [employer] on 01/18/25 16:05 UA Bilirubin 0 mg/dL Last Edit by Powered by [employer] on 01/18/25 16:05 UA Glucose 0 mg/dL Last Edit by Powered by [employer] on 01/18/25 16:05 Results Reviewed Results Reviewed: Date of Service: 01/11/25 Procedure(s): US retroperitoneal comp Findings: Right kidney normal size and echotexture, 10.4 cm length. Left kidney normal size and echotexture, 10.3 cm length. 4 mm nonobstructing calculus noted within the midpole. No collecting system dilatation of either kidney. Normal color Doppler. Urinary bladder is unremarkable. Prevoid volume 206 mL. Postvoid volume 9 mL. Bilateral ureteral jets are visualized. IMPRESSION: Nonobstructing left renal calculus. Otherwise unremarkable. Assessment & Plan Assessment & Plan (1) Straining on urination: Code(s): R39.16 - Straining to void Category: Medical (2) Feeling of incomplete bladder emptying: Code(s): R39.14 - Feeling of incomplete bladder emptying Category: Medical (3) Urinary dribbling: Code(s): N39.43 - Post-void dribbling Category: Medical (4) Nephrolithiasis: Code(s): N20.0 - Calculus of kidney Category: Medical Plan In office urinalysis results reviewed with the patient today; as noted above. Recent retroperitoneal ultrasound results reviewed with the patient today; as noted above. We discussed at length the importance of adequate hydration relation to nephrolithiasis as well as overall health and well-being. Will continue with surveillance monitoring. Discussed adding 1 oz of lemon juice to water daily. Continue Flomax as discussed and prescribed. Continue with pelvic floor exercises at home. Will obtain renal ultrasound in 6 months Follow-up in 6 months with imaging to be completed prior; or sooner with any issues, concerns, and or questions. Orders: Orders US retroperitoneal comp 6 Months N20.0 - Calculus of kidney AMB Post Void Residual by ultrasound Today R39.14 - Feeling of incomplete bladder emptying AMB Urinalysis Automated Today Z13.9 - Encounter for screening, unspecified Patient Instructions: The patient had an opportunity to ask questions regarding the treatment plan. All questions were answered. Physical exam, labs, and imaging were discussed and reviewed in detail. As well as risks, benefits, and discussion of treatment choices. No major barriers to understanding were identified. The patient expressed understanding and agreement with the above treatment plan. The patient was made aware they should contact our office by phone for worsening of their current condition, the appearance of new symptoms, or with any questions or concerns. Compliance is encouraged with any medications and follow up testing that is ordered. It is a privilege to be allowed the opportunity to participate in? your urological care.? Again, if you have any questions or concerns If you have any questions or concerns please do not hesitate to contact me. The office is [phone]. This note is constructed using voice recognition software. While every effort has been made to ensure accuracy die sinker errors may have been included. Yours sincerely, WAYLON Hdz Coding Level of Care Code Est Pt Level 3 (92361) Complex EM visit Add On G2211 Diagnoses Straining on urination R39.16 Feeling of incomplete bladder emptying R39.14 Urinary dribbling N39.43 Nephrolithiasis N20.0 CPT Codes Post Residual Void - PVR CPT Code: 14807-Gtoq Void Residual by ultrasound ([id number])
--- OUTSIDE RECORDS SUMMARY | 2025-01-18 18:07 | XMS_ITS | Data Portability ---
Author Organization [facility], FP, [facility]HC, OFFICE Address [address] [place] [address] Care Team Providers Care Shopper Marketing Manager Name Role Phone ROXY RAMIREZ Primary Care Provider [phone] [facility] Urologist [phone] Assessment No assessment recorded. Plan of Treatment Reminders Order Date Submit Date Provider Last Modified By Organization Details Last Modified Time Details Appointments Wellness Visit 30 2024 04:00P M JENNI IRBY Not available Not available Not available Lab hepatiti s C virus Ab, serum 2024 025 [facility], [address] [place] [address], [id number], 11/09/2024 17:18:35 lipid panel, serum 2024 025 [facility], [address] [place] [address], [address], 11/09/2024 14:02:31 BMP, serum or plasma 2024 025 [facility], [address] [place] [address], [address], 11/09/2024 14:02:30 CBC 2024 025 [facility], [address] [place] [address], [address], 11/08/2024 16:41:35 Referral orthoped ic surgeon referral - hx ulnar nerve decompre ssion 6 years ago with benefit, symptoms returnin g and little relief with anti- inflamma carey goodman 2024 025 paco Valenzuela MD, [address] [place] [address] , [place] [address], [place], [address], 01/05/2025 07:21:47 physical therapis t referral - lumbar radiculo katerine 2023 024 [facility], [address] [facility], [place], [address], 09/30/2024 16:57:14 Procedures colonosc opy procedur e (PROC) [email or web address] [facility], [address] [place] [address], [address], 11/02/2024 08:32:56 Surgeries None recorded . Imaging XR, elbow - right 2024 025 [facility] ([facility]), [address] [place] [address] , [place], [address], 11/08/2024 15:31:35 Medication Orders diclofen ac 1 % topical gel 2024 025 [facility][id number], [address] [place], [place], [id number], 12/23/2024 12:31:18 medroxyp rogester one 5 mg tablet 2024 025 [facility] #[id number], [address] [place], [place], [id number], 11/08/2024 14:36:50 estradio l 0.025 mg/24 hr weekly transder mal patch 2024 025 [facility] #66600, [address] [place], [place], [id number], 11/01/2024 17:13:35 venlafax ine ER 37.5 mg capsule, extended release 24 hr 2023 025 [facility]71840, [address] [place], [place], [id number], 11/01/2024 16:58:10 Patient TargetsNo targets recorded. Patient InstructionsNo instructions recorded. 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 ? ?L 3.98-1 0.04 Not Available [address], [address], 11/08/2024 16:41:35 11/08/19 25 11/08/2024 CBC RBC 4.44 M/? ? ?L 3.93-5 .22 Not Available [address], [address], 11/08/2024 16:41:35 11/08/19 25 11/08/2024 CBC HGB 13.0 g/dL 11.2-1 5.7 Not Available [address], [address], 11/08/2024 16:41:35 11/08/19 25 11/08/2024 CBC HCT 39.8 % 34.1-4 4.9 Not Available [address], [address], 11/08/2024 16:41:35 11/08/19 25 11/08/2024 CBC MCV 89.6 fL 79.4-9 4.8 Not Available [address], [address], 11/08/2024 16:41:35 11/08/19 25 11/08/2024 CBC MCH 29.3 pg 25.6-3 2.2 Not Available [address], [address], 11/08/2024 16:41:35 11/08/19 25 11/08/2024 CBC MCHC 32.7 g/dL 32.2-3 5.5 Not Available [address], [address], 11/08/2024 16:41:35 11/08/19 25 11/08/2024 CBC plt 267 K/? ? ?L 182-36 9 Not Available [address], [address], 11/08/2024 16:41:35 11/08/19 25 11/08/2024 CBC MPV 10.6 fL 9.4-12 .3 Not Available [address], [address], 11/08/2024 16:41:35 11/08/19 25 11/08/2024 CBC neut% 48.6 % 34.0-7 1.1 Not Available [address], [address], 11/08/2024 16:41:35 11/08/19 25 11/08/2024 CBC neut# 2.72 1.56-6 .13 Not Available [address], [address], 11/08/2024 16:41:35 11/08/19 25 11/08/2024 CBC lymph % 41.8 % 19.3-5 1.7 Not Available [address], [address], 11/08/2024 16:41:35 11/08/19 25 11/08/2024 CBC lymph # 2.34 K/? ? ?L 1.18-3 .74 Not Available [address], [address], 11/08/2024 16:41:35 11/08/19 25 11/08/2024 CBC mono% 6.6 % 4.7-12 .5 Not Available [address], [address], 11/08/2024 16:41:35 11/08/19 25 11/08/2024 CBC mono# 0.37 0.24-0 .56 Not Available [address], [address], 11/08/2024 16:41:35 11/08/19 25 11/08/2024 CBC eo% 2.1 % 0.7-5. 8 Not Available [address], [address], 11/08/2024 16:41:35 11/08/19 25 11/08/2024 CBC eo# 0.12 0.04-0 .36 Not Available [address], [address], 11/08/2024 16:41:35 11/08/19 25 11/08/2024 CBC baso% 0.7 % 0.1-1. 2 Not Available [address], [address], 11/08/2024 16:41:35 11/08/19 25 11/08/2024 CBC baso# 0.04 0.00-0 .08 Not Available [address], [address], 11/08/2024 16:41:35 11/08/19 25 11/08/2024 CBC RDW-CV 12.3 % 11.7-1 4.4 Not Available [address], [address], 11/08/2024 16:41:35 11/08/19 25 11/08/2024 CBC Ig% 0.200 % 0.000- 1.500 Ig % >0.5 Indic ates possi ble Left Shift Not Available [address], [address], 11/08/2024 16:41:35 11/08/19 25 11/08/2024 CBC Ig# 0.010 0.000- 0.093 Not Available [address], [address], 11/08/2024 16:41:35 11/08/19 25 11/08/2024 CBC NRBC% 0.0 % 0.0-0. 2 Not Available [address], [address], 11/08/2024 16:41:35 11/08/19 25 11/08/2024 CBC NRBC# 0.000 0.000- 0.012 Not Available [address], [address], 11/08/2024 16:41:35 11/08/19 25 11/09/2024 BASIC METAB OLIC PANEL glucose 103 mg/dL 70-100 high Not Available [address], [address], 11/09/2024 14:02:30 11/08/19 25 11/09/2024 BASIC METAB OLIC PANEL BUN 27 mg/dL 7-18 high Not Available [address], [address], 11/09/2024 14:02:30 11/08/19 25 11/09/2024 BASIC METAB OLIC PANEL creatinine 0.8 mg/dL 0.8-1. 3 Not Available [address], [address], 11/09/2024 14:02:30 11/08/19 25 11/09/2024 BASIC METAB OLIC PANEL B/C 33.8 ratio Not Available [address], [address], 11/09/2024 14:02:30 11/08/19 25 11/09/2024 BASIC METAB [...] be used in pregn mark. Not Available [address], [address], 11/09/2024 14:02:30 11/08/19 25 11/09/2024 BASIC METAB OLIC PANEL sodium 141 mmol/ L 136-14 5 Not Available [address], [address], 11/09/2024 14:02:30 11/08/19 25 11/09/2024 BASIC METAB OLIC PANEL potassium 4.5 mmol/ L 3.5-5. 1 Not Available [address], [address], 11/09/2024 14:02:30 11/08/19 25 11/09/2024 BASIC METAB OLIC PANEL chloride 102 mmol/ L 96-107 Not Available [address], [address], 11/09/2024 14:02:30 11/08/19 25 11/09/2024 BASIC METAB OLIC PANEL anion gap 10.1 5.0-15 .0 Not Available [address], [address], 11/09/2024 14:02:30 11/08/1911/09/2024 BASIC METAB OLIC PANEL CO2 29 mmol/ L 21-32 Not Available [address], [address], 11/09/2024 14:02:30 11/08/1911/09/2024 BASIC METAB OLIC PANEL calcium 9.5 mg/dL 8.5-10 .3 Not Available [address], [address], 11/09/2024 14:02:30 11/08/1911/09/2024 LIPID PANEL cholesterol 263 mg/dL <200 mg/dl Manisha able 200-2 39 mg/dl Borde rline High >240 mg/dl High Not Available [address], [address], 11/09/2024 14:02:31 11/08/1911/09/2024 LIPID PANEL triglyceride s 56 mg/dL <150 mg/dL Jewell l 150-1 99 mg/dL Borde rline High 200-4 99 mg/dL High >500 mg/dL Very High Not Available [address], [address], 11/09/2024 14:02:31 11/08/1911/09/2024 LIPID PANEL direct HDL 86 mg/dL <40 mg/dl - Major Risk for CHD >60 mg/dl - Negat leyda Risk for CHD Not Available [address], [address], 11/09/2024 14:02:31 11/08/1911/09/2024 DIREC T LDL direct [...] r is not neces arnoldo. Not Available [facility] [address] [facility], [place], [address], 11/09/2024 14:02:33 11/08/19 25 11/09/2024 HEPAT ITIS [...] a test for HCV RNA (test code 92746 ) is sugge nell. For addit ional infor ilene king pleas e refer to http: //[facility] [place] stdia gnost ics.c om/fa q/FAQ 22v1 (This link is being provi ded for infor ilene nal/ educa dione l purpo ses only. ) Not Available [facility] [address] [place] [address] Tan B, DANYA Garcia, [address], 11/09/2024 17:18:35 11/02/19 25 05/04/2024 MAMMO , scree hamilton No observ ation record ed. [email or web address] [facility] [address] [place] [address] [place], [address], 11/03/2024 07:57:56 11/08/19 25 11/08/2024 XR, elbow [...] Readin g Physic shweta: Kai ia Cross [facility] [address] [place], [address], 11/09/2024 16:36:09 Result Notes None recorded. Procedures Surgical History Date Name Laterality Status Provider Name and Address Organization Details Recorded Time Lucero - Colonoscopy completed Chapito Barker MD [address] [place] [address], [address], [facility] 11/21/2024 08:26:59 Imaging Results Imaging Date Name Status LastModified by Organiz ation Details LastModified Time 05/04/2024 MAMMO, screening completed [email or web address] [facility] [address] [place], [address], 11/03/2024 07:57:56 11/08/2024 XR, elbow completed [facility] [address], D[place], [address], 11/09/2024 16:36:09 Procedure Notes None recorded. Medical Equipment None Reported. Allergies Allergen ID Allergen Name Allergen Category Reaction Reaction Severity Criticality Documentation Date Start Date Code Code System Note Provider Name and Address Organization Details Recorded Time [id number] penicilli n G Not available hives Not available Not available 11/18/2024 7980 RxNorm Soco Strange RN [facility], [facility] 5 11:41:31 195694 cefazolin medicatio n rash Not available Not available 11/18/2024 2180 RxDavid Strange RN [facility], [facility] 5 11:42:23 Medications Name Sig Start [...] TAKE 1 TABLET BY MOUTH EVERY DAY 2024 active Not Available Not Available Not Avai lable rizatript an 10 mg tablet TAKE 1 [...] LastModified by Organizat ion Details LastModified Time What Was The [...] SNOMED-CT Code Diagnosis ICD10 Code Diagnosis Note [id number] JENNI IRBY, Harleen, OFFICE [address] [place] [phone] 09/30/2024 09:18:40 09/30/2024 10:18:40 [id number] JENNI IRBY Harleen, OFFICE [address] [place] [address] 11/01/2024 16:01:27 11/01/2024 19:22:12 [id number] JENNI IRBY, [facility], OFFICE [address] [place] [address] 11/08/2024 13:55:40 11/10/2024 10:18:59 [id number] Soco Strange RN Endoscopy , [address] [phone] 11/21/2024 07:10:25 11/21/2024 13:48:30 [id number] JENNI IRBY, [facility], OFFICE [address] [place] [phone] 12/23/2024 11:50:33 12/23/2024 12:47:27 Health Concerns Section Related Observation LastModified by Organization Detai ls LastModified Time None Recorded Concern Status LastModified by Organization Details LastModified Time None Recorded Advance Directives Directive None Recorded Payers Encounter Date Sequence Insurance Name Policy Number Policy Hernández Covered Member ID Hernández Member ID Guarantor Name 09/30/2024 1 [place] [id number] Kedsy Colon [id number] Kedsy Colon 11/01/2024 1 [place] [id number] Kedsy Colon [id number] Kedsy Colon 11/08/2024 1 [place] [id number] Kedsy Colon [id number] Kedsy Colon 12/23/2024 1 [place] [id number] Kedsy Colon [id number] Kedsy Colon OBGyn Episode No OBEpisode recorded.
--- OUTSIDE RECORDS SUMMARY | 2025-01-18 18:07 | XMS_ITS | Clinical Summary ---
Author Organization [facility] Address [address] [place] [address] Care Team Providers Care Blender Operator Name Role Phone Unavailable Primary Care Provider [...] 2021 Fecal DNA 2021 Flexible Sigmoidoscopy 2021 [id number] ( season) 2024 021, 01/15/2021 Imm-Influenza (#1) 2024 07/07/2020, 1 10/06/2018, 09/06/2013, Additional history exists Alcohol and Drug Screen 10/05/2024 Depression Annual Screen 10/05/2024 Cervical Ablation/Cold-Knife Conization Discontinued Cervical Cryotherapy Discontinued Colposcopy Discontinued Endometrial Biopsy Discontinued Excision/Leep Discontinued HPV Genotyping Discontinued Vaginal Pap Discontinued Vulvoscopy Discontinued Insurance [employer] PL[employer] Member Subscriber Plan / Payer (Ef fective 2021-Present) Name:Antelmo Anglin Relation to Subscriber:Self Name:Antelmo Anglin Payer ID:[id number] Group ID:Not on file Type:Medicaid Address: [facility] [address] [place] [address]
--- OUTSIDE RECORDS SUMMARY | 2025-01-18 18:07 | XMS_ITS | Continuity of Care Document ---
Author Organization [facility] Address [address] [place] [address] Phone Care Team Providers Care License Registration Examiner Name Role Phone Herminio HERNANDEZ, HANNY, TOYA, [...] E&M Established 15 Mins [facility], [address], [place], [id number], [place] tel:[phone] CVR - [place] - [place] 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 [address] [facility] [address], [address], [place], [id number], [place]. tel:[phone] Referring Provider: Janice Gutiérrez MD, [address] [place] [address] , [address] [place] [address] D/B/A: [place], [address]. tel:[phone] [facility], [address] [place] [address] Dr [address] [place], [id number], [place] tel:[phone] [facility] - [place] Encounter for follow-up examination after completed treatment for conditions other than malignant neChronic venous hypertension (idiopathic) with other complication s of bilateral lower extremity 4 Herminio HERNANDEZ RVT, TOYA Curran. [address] [place] [address], [address], [place], [place], [id number], [place]. tel:[phone] Referring Provider: Janice Gutiérrez MD, [address] [facility] , [address] [place] [address] D/B/A: [place], [address]. tel:[phone] [facility], [address] [place] [address] [address], [id number], [place] tel:[phone] CVR - [place] - [place] Chronic venous hypertension (idiopathic) with other complication s of left lower extremity 4 Herminio HERNANDEZ RVT, TOYA Curran. [address] [facility], [address], [place], [place], [id number], [place]. tel:[phone] Referring Provider: Janice Gutiérrez MD, [address] [facility] , [address] [place] [address] D/B/A: [place], [address]. tel:[phone] [facility], [address] [place] [address] [address], [id number], [place] tel:[phone] [facility] Varicose veins of left lower extremity with other complication s 4 Herminio HERNANDEZ RVT, TOYA Curran. [address] [facility], [address], [place], [place], [id number], [place]. tel:[phone] Referring Provider: Janice Gutiérrez MD, [address] [facility] , [address] D/B/A: [place], [address]. tel:[phone] [facility], [address] [place] [address] Dr [address] [place], [id number], [place] tel:[phone] [facility] - [place] Encounter for follow-up examination after completed treatment for conditions other than malignant neVaricose veins of right lower extremity with pain 4 Herminio HERNANDEZ RVT, TOYA Curran. [address] [place] [address], [place], [place], [id number], [place]. tel:[phone] Referring Provider: Janice Gutiérrez MD, [address] [facility] , [address] D/B/A: [place], [address]. tel:[phone] [facility], [address] [place] [address] [facility] [address] [place]bi [place], [id number], [place] tel:[phone] CV[place] - [place] Chronic venous hypertension (idiopathic) with inflammation of right lower extremity 4 Herminio HERNANDEZ RVT, TOYA Curran. [address] [place] [address], [place], [place], [id number], [place]. tel:[phone] Referring Provider: Janice Gutiérrez MD, [address] [facility] , [address] [place] [address] D/B/A: [place], [address]. tel:[phone] Offic/outpt E&m Estab 5 Min Trial - Telemedicine [facility], [address] [place] [address] [address], [id number], [place] tel:[phone] [facility] - [place] Chronic venous hypertension (idiopathic) with other complication s of bilateral lower extremity 3 Radha Baeza. [address] [facility] [address], [place], [place], [id number], [place]. tel:[phone] Referring Provider: Janice Gutiérrez MD, [address] , [address] [place] D/B/A: [place], [address]. tel:[phone] [facility], [address] [place] [address] [address], [place], [id number], tel:[phone] [facility] - [place] Varicose veins of bilateral lower extremities with pain Sep-2 3 Toby HERNANDEZ FACS [facility] TOYA Melo. [address] [facility], Suite [facility], [place], [address], [place]. tel:[phone] Referring Provider: Janice Gutiérrez MD, [address] [facility] , [address] [place] [address] D/B/A: lee Pinedo In [place], . tel:[phone] Office/Oupt E&M New Pt 45 Mins [facility], [address] [place] [address] [address], [place], [id number], [place] tel:[phone] [facility] - [place] Varicose veins of bi low extrem w oth complication Steve in right lower legPain in left lower legPain in right legFlail joint, unspecified jointPain in left leg Sep-2 3 Toby HERNANDEZ FACS T TOYA Melo. [facility], [place] [address], [place], [address], [place]. tel:[phone] Referring Provider: Janice Gutiérrez MD, [address] [facility] , [address] [place] [address] D/B/A: [place], [address]. tel:[phone] Family History Family Member Type Diagnosis Age At Onset No Information Payers Payer name Insurance type Covered constitution party ID Keshawn lomas(s) [facility] DANYA [id number] [id number] Social History Type Description Quantity Date [...]
== END 2025-01-18 16:16 | disposition home or self-care (01) ==
LOC: HO.HUSH 15:43
PROVIDERS: PCP Internal Medicine; Visit Provider Nurse Practitioner Family
DX: R39.16 Straining to void (principal); R39.14 Feeling of incomplete bladder emptying; N39.43 Post-void dribbling; N20.0 Calculus of kidney; Z13.9 Encounter for screening, unspecified
CPT/HCPCS: 99213

== ENCOUNTER → 2025-01-18 15:43 | Outpatient (BNVA) | payer BC, SELFPAY | PROVIDERS: PCP Internal Medicine; Visit Provider Nurse Practitioner Family | DX: R39.16 Straining to void (principal); R39.14 Feeling of incomplete bladder emptying; N39.43 Post-void dribbling; N20.0 Calculus of kidney | CPT/HCPCS: 51798; 81003 ==

== ENCOUNTER 2025-04-21 10:12 | Outpatient (AMB) | payer BC, SELFPAY ==
--- OUTSIDE RECORDS SUMMARY | 2023-12-18 11:30 | XMS_ITS | Continuity of Care Document ---
Author Organization [facility] Address [address] [place] [address] Phone Care Team Providers Care Groundskeeper Porter Name Role Phone Herminio HERNANDEZ, HANNY, TOYA, Magdy Unavailable U navailable Procedures Procedure Date Office/Outpt E&M Established 15 Mins Dec Duplex Scan-extrem Veins; Comp 24 Duplex Scan-extrem Veins; Uni/ 24 Endovenous Laser, 1st Vein Duplex Scan-extrem Veins; Uni/ 24 Endovenous Laser, 1st Vein Offic/outpt E&m Estab 5 Min Trial - Tele medicine Duplex Scan-extrem Veins; Comp Office/Oupt E&M New Pt 45 Mins Advance Directives Directive Yes / No Effective Date File Name No Information Encounters Encounter Description Practice Location Reason(s) For Visit Diagnoses Date Provider Providers Copied on Encounter Office/Outpt E&M Established 15 Mins [facility], [address], [place], [id number], [place] tel:[phone] CVR - [place] - [place] 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 [address], [address], [place], [id number], [place]. tel:[phone] Referring Provider: Janice Gutiérrez MD, [address] [place] [address] , [address] [place] [address] D/B/A: [place], [address]. tel:[phone] [facility], [address] [place] [address] Dr [address]Suite [place], [id number], [place] tel:[phone] [facility] - [place] Encounter for follow-up examination after completed treatment for conditions other than malignant neChronic venous hypertension (idiopathic) with other complication s of bilateral lower extremity 4 Herminio HERNANDEZ RVT, TOYA Curran. [address] [place] [address], [address], [place], [place], [id number], [place]. tel:[phone] Referring Provider: Janice Gutiérrez MD, [address] [facility] , [address] [place] [address] D/B/A: [place], [address]. tel:[phone] [facility], [address] [place] [address] [address], [id number], [place] tel:[phone] [facility] - [place] - [place] Chronic venous hypertension (idiopathic) with other complication s of left lower extremity 4 Herminio HERNANDEZ RVT, TOYA Curran. [address], [address], [place], [place], [id number], [place]. tel:[phone] Referring Provider: Janice Gutiérrez MD, [address] [facility] , [address] [place] [address] D/B/A: [place], [address]. tel:[phone] [facility], [address] [place] [address] [address], [id number], [place] tel:[phone] [facility] - [place] Varicose veins of left lower extremity with other complication s 4 Herminio HERNANDEZ RVT, TOYA Curran. [address], [address], [place], [place], [id number], [place]. tel:[phone] Referring Provider: Janice Gutiérrez MD, [address] [facility] , [address] D/B/A: [place], [address]. tel:[phone] [facility], [address] [place] [address] [address] [place], [id number], [place] tel:[phone] CV[facility] - [place] Encounter for follow-up examination after completed treatment for conditions other than malignant neVaricose veins of right lower extremity with pain 4 Herminio HERNANDEZ RVT, TOYA Curran. [address] [place] [address], [place], [place], [id number], [place]. tel:[phone] Referring Provider: Jancie Gutiérrez MD, [address] [facility] , [address] D/B/A: [place], [address]. tel:[phone] [facility], [address] [place] [address] [facility] [address] [place], [id number], [place] tel:[phone] CV[facility] - [place] - [place] Chronic venous hypertension (idiopathic) with inflammation of right lower extremity 4 Herminio HERNANDEZ RVT, TOYA Curran. [address] [place] [address], [place], [place], [id number], [place]. tel:[phone] Referring Provider: Janice Gutiérrez MD, [address] [facility] , [address] [place] [address] D/B/A: [place], [address]. tel:[phone] Offic/outpt E&m Estab 5 Min Trial - Telemedicine [facility], [address] [place] [address] [address], [id number], [place] tel:[phone] [facility] - [place] Chronic venous hypertension (idiopathic) with other complication s of bilateral lower extremity 3 Radha Baeza. [address], [place], [place], [id number], [place]. tel:[phone] Referring Provider: Janice Gutiérrez MD, [address] , [address] [place] D/B/A: [place], [address]. tel:[phone] [facility], [address] [place] [address] [address], [place], [id number], tel:[phone] CV[place] - [place] Varicose veins of bilateral lower extremities with pain Sep-2 3 Toby HERNANDEZ FACS [facility] TOYA Melo. [address], [address] [facility], [place], [address], [place]. tel:[phone] Referring Provider: Janice Gutiérrez MD, [address] [facility] , [address] [place] [address] D/B/A: lee Pined[place], [place], . tel:[phone] Office/Oupt E&M New Pt 45 Mins [facility], [address] [place] [address] [address], [place], [id number], [place] tel:[phone] [facility] - [place] Varicose veins of bi low extrem w oth complication Steve in right lower legPain in left lower legPain in right legFlail joint, unspecified jointPain in left leg Sep-2 3 Toby HERNANDEZ FACS T TOYA Melo. [facility], [place] [address], [place], [address], [place]. tel:[phone] Referring Provider: Janice Gutiérrez MD, [address] [facility] , [address] [place] [address] D/B/A: [place], [address]. tel:[phone] Family History Family Member Type Diagnosis Age At Onset No Information Payers Payer name Insurance type Covered constitution party ID Keshawn lomas(s) [facility] DANYA [id number] [facility] [id number] Social History Type Description Quantity Date Captured Comments Alcohol Use Details Unknown Caffeine Use Details Unknown Tobacco Use Status Current non-smoker Smoking Status Never Smoker Non-Smoking Tobacco Use Details : No Details Available : No Details Available Sex Female Vital Signs Date / Time: Height Weight BMI Pulse Rate Blood Pressure Temperature Respiratory Rate Body Surface Area Head Circumference Head Circ. Percentile Wt./Tyrone. Percentile BMI percentile Pulse Ox Inhaled Ox 56.250 kg (124.00 lbs) 23.4 4 kg/m eter (2) 122/78 mm[Hg] Chief Complaint And Reason For Visit No Information Reason For Referral Reason For Referral No Information Plan Of Treatment Date Type Action Status Goal Diet education completed Goal Diet education completed Referral Ordered: Weight management: Referral to physician timeframe: 3 Months (related to Body mass index (BMI) 23.0-23.9, adult) ordered Referral Ordered: Weight management: Referral to physician timeframe: 3 Months (related to Body mass index (BMI) 23.0-23.9, adult) ordered History Of Present Illness Encounter Date Complaint History Of Prese nt Illness No Information Functional Status Date Functional Assessmen t No Information Instructions Date Instruction Additional Infor bryan Diet education Related to Body mass index (BMI) 23.0-23.9, adult Giving Encouragement to exercise Related to Body mass index (BMI) 23.0-23.9, adult Lifestyle education Related to B arcelia mass index (BMI) 23.0-23.9, adult Patient education booklet given Related to Varicose veins of bilateral lower extremities with other complications Patient education booklet given Related to Chronic venous hypertension (idiopathic) with other complications of bilateral lower extremity Pre and post instruc tions reviewed and provided Related to Chronic venous hypertension (idiopathic) with other complications of bilateral lower extremity Patient education booklet given Related to Varicose veins of bi low extrem w oth complications Pre and post instruc tions reviewed and provided Related to Varicose veins of bi low extrem w oth complications Diet education Related to Body mass index (BMI) 23.0-23.9, adult Giving Encouragement to exercise Related to Body mass index (BMI) 23.0-23.9, adult Lifestyle education Related to B arcelia mass index (BMI) 23.0-23.9, adult Assessments Type Assessment Date No Information Patient Care Teams Name Effective Dates (start - stop) Status Members No Information
--- NOTE | 2025-04-21 10:28 | A.OFFVIS_ITS ---
Vital Signs 04/21/25 10:29 Height 5 ft 1 in Weight 123 lb BMI 23.2 Intake Visit Reasons: [employer]-Ulnar neuropathy of right arm Intake Note: Antelmo is a 49 year old female who presents today as a new patient for Ulnar neuropathy of right arm. Patient was referred by her PCP Roxy Leslie 12/23/24. Patient has a history of right arm pain, ulnar nerve decompression surgery and elbow surgery 6 years ago. At patients visit with her pcp on 12/23/24 and 11/08/24 they discussed her right arm pain. Patient states her pain is in the medial aspect of elbow, she is not able to fully bend her arm with out pain, numbness and tingling mainly at nigh time. She also has neck pain that radiates down her arm. She does stretches at home with little help. Allergies cefazolin (CEFAZOLIN) Allergy (Intermediate, Verified 04/21/25 10:36) RASH, HIVES, ITCHINESS Penicillins (PENICILLINS) Allergy (Intermediate, Verified 04/21/25 10:36) RASH penicillin G Allergy (Unknown, Verified 04/21/25 10:36) rash, itching antibiotic unsure name Allergy (Unknown, Uncoded 04/21/25 10:36) unknown Medication List - Last Reconciled 04/21/25 by Alysha Chavira MD aspirin (Adult Aspirin Regimen) 81 mg PO DAILY 90 days cholecalciferol (vitamin D3) 25 mcg PO DAILY 90 days rizatriptan 10 mg PO Q2-4H PRN 30 days tamsulosin 0.4 mg PO BEDTIME 30 days HPI Comments Details: Right ulnar surgery [address] Dr. Valenzuela (?). Symptoms before surgery were tingling and swelling. Did get better after surgery. Was doing well until 6 months ago. 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 Pain on right elbow. Used to wear elbow splint, and feels better with compression. At night, she has numbness on hand/forearm. 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 MSK: Inspection reveals appropriate head and neck positioning. Right upper extremity: No joint effusion noted. No deformity noted. No intrinsic hand weakness noted. No atrophy noted. Celeste test negative. Carpal compression test negative. Tinel sign positive right elbow. Tenderness over right medial malleolus and flexor tendons. Strength is 5/5 in all muscle groups tested. No increased tone noted. Neurological: Neurologic examination of the upper and lower extremities was nonfocal with intact sensation, muscle stretch reflexes and without focal motor deficits . Arredondo?s negative bilaterally. Gait is non-antalgic without loss of balance. Vital Signs: BMI result Body Mass Index 23.2 Results Reviewed Results Reviewed: I independently reviewed the results of the following: [ ] I reviewed records from the following: [ ] Assessment & Plan Assessment & Plan (1) Medial epicondylitis, right elbow: Code(s): M77.01 - Medial epicondylitis, right elbow Category: Medical (2) Ulnar neuropathy at elbow of right upper extremity: Code(s): G56.21 - Lesion of ulnar nerve, right upper limb Category: Medical Plan Possible right medial epicondylitis versus recurrent ulnar neuropathy. We will trial counterforce brace for the right side. Instructions given on how to wear this. We will schedule for EMG to rule out recurrent ulnar neuropathy versus Carpal Tunnel Syndrome. We will do x-rays for right elbow as well. Assessment and plan discussed with patient, and patient was agreeable. All questions were answered thoroughly. Alysha Chavira MD, KATHE Board Certified, [place] [employer] and [employer] (ABPMR) Board Certified, [place] [employer] Electro[employer] (ABEM) Orders: Orders XR elbow RT min 3V Today G56.21 - Lesion of ulnar nerve, right upper limb, M77.01 - Medial epicondylitis, right elbow NE electromyogram (EMG) Today G56.21 - Lesion of ulnar nerve, right upper limb NE nerve conduction velocity Today G56.21 - Lesion of ulnar nerve, right upper limb Coding Level of Care Code New Pt Level 4 (59736) Diagnoses Medial epicondylitis, right elbow M77.01 Ulnar neuropathy at elbow of right upper extremity G56.21
[2025-04-21 10:29] VITALS: BMI 23.2
--- OUTSIDE RECORDS SUMMARY | 2025-04-21 10:33 | XMS_ITS | Data Portability ---
Author Organization [facility], , [facility] Address [address] [place] [address] Care Team Providers Care Top Cager Name Role Phone ROXY LESLIE Primary Care Provider [phone] [facility] Urologist Assessment No assessment recorded. Plan of Treatment Reminders Order Date Submit Date Provider Last Modified By Organization Details Last Modified Time Details Appointments None recorded. Lab hepatitis C virus Ab, serum 2024 025 [facility], [address] [place] [address], [address], 5 17:18:35 lipid panel, serum 2024 025 [facility], [address] [place] [address], [address], 5 14:02:31 BMP, serum or plasma 2024 025 [facility], [address] [place] [address], [address], 5 14:02:30 CBC 2024 025 [facility], [address] [place] [address], [address], 5 16:41:35 Referral orthopedic surgeon referral - hx ulnar nerve decompressi on 6 years ago with benefit, symptoms returning and little relief with anti- inflammator y, brace 2024 025 paco Valenzuela MD, [address] [place] [address] [place], [address], 5 07:21:47 physical therapist referral - lumbar radiculopat hy 2023 024 paco [facility], [address] [facility], [place], [address], 4 16:57:14 Procedures colonoscopy procedure (PROC) [address] [facility], [address] [facility], [place], [address], 5 08:32:56 Surgeries None recorded. Imaging XR, elbow - right 2024 025 [facility] ([facility]), [address] , [place] Hobson, [address], 5 15:31:35 Medication Orders diclofenac 1 % topical gel 2024 025 [facility][id number], [address], [place], [id number], 5 12:31:18 medroxyprog esterone 5 mg tablet 2024 025 [facility] #[id number], [address], [place], [id number], 5 14:36:50 estradiol 0.025 mg/24 hr weekly transdermal patch 2024 025 [facility] #[id number], [address], [place], [id number], 5 17:13:35 venlafaxine ER 37.5 mg capsule,ext ended release 24 hr 2023 025 [facility] #[id number], [address], [place], [id number], 5 16:58:10 Patient TargetsNo targets recorded. Patient InstructionsNo instructions recorded. Reason for Referral Physical Therapist Referral for Lumbar radiculopathy lumbar radiculopathy Referring Physician: Roxy Lesile [facility], Encounter Date: 09/30/2024 Orthopedic Surgeon Referral for Ulnar neuropathy of right arm hx ulnar nerve decompression 6 years ago with benefit, symptoms returning and little relief with anti- inflammatory, brace Referring Physician: Roxy Leslie [facility], Encounter Date: 12/23/2024 Results Created Date Observation Date Name Description Value Unit Range Abnormal Flag Note LastModifiedBy Organization Detail LastModifiedTime 11/08/1911/08/2024 CBC WBC 5.60 K/ L 3.98-1 0.04 Not Available [address], [address], 11/08/2024 16:41:35 11/08/1911/08/2024 CBC RBC 4.44 M/ L 3.93-5 .22 Not Available [address], [address], 11/08/2024 16:41:35 11/08/1911/08/2024 CBC HGB 13.0 g/dL 11.2-1 5.7 Not Available [address], [address], 11/08/2024 16:41:35 11/08/1911/08/2024 CBC HCT 39.8 % 34.1-4 4.9 Not Available [address], [address], 11/08/2024 16:41:35 11/08/1911/08/2024 CBC MCV 89.6 fL 79.4-9 4.8 Not Available [address], [address], 11/08/2024 16:41:35 11/08/1911/08/2024 CBC MCH 29.3 pg 25.6-3 2.2 Not Available [address], [address], 11/08/2024 16:41:35 11/08/1911/08/2024 CBC MCHC 32.7 g/dL 32.2-3 5.5 Not Available [address], [address], 11/08/2024 16:41:35 11/08/1911/08/2024 CBC plt 267 K/ L 182-36 9 Not Available [address], [address], 11/08/2024 16:41:35 11/08/1911/08/2024 CBC MPV 10.6 fL 9.4-12 .3 Not Available [address], [address], 11/08/2024 16:41:35 11/08/19 25 11/08/2024 CBC neut% 48.6 % 34.0-7 1.1 Not Available [address], [address], 11/08/2024 16:41:35 11/08/1911/08/2024 CBC neut# 2.72 1.56-6 .13 Not Available [address], [address], 11/08/2024 16:41:35 11/08/1911/08/2024 CBC lymph % 41.8 % 19.3-5 1.7 Not Available [address], [address], 11/08/2024 16:41:35 11/08/19 25 11/08/2024 CBC lymph # 2.34 K/ L 1.18-3 .74 Not Available [address], [address], 11/08/2024 16:41:35 11/08/19 25 11/08/2024 CBC mono% 6.6 % 4.7-12 .5 Not Available [address], [address], 11/08/2024 16:41:35 11/08/1911/08/2024 CBC mono# 0.37 0.24-0 .56 Not Available [address], [address], 11/08/2024 16:41:35 11/08/19 25 11/08/2024 CBC eo% 2.1 % 0.7-5. 8 Not Available [address], [address], 11/08/2024 16:41:35 11/08/1911/08/2024 CBC eo# 0.12 0.04-0 .36 Not Available [address], [address], 11/08/2024 16:41:35 11/08/1911/08/2024 CBC baso% 0.7 % 0.1-1. 2 Not Available [address], [address], 11/08/2024 16:41:35 11/08/1911/08/2024 CBC baso# 0.04 0.00-0 .08 Not Available [address], [address], 11/08/2024 16:41:35 11/08/1911/08/2024 CBC RDW-CV 12.3 % 11.7-1 4.4 Not Available [address], [address], 11/08/2024 16:41:35 11/08/1911/08/2024 CBC Ig% 0.200 % 0.000- 1.500 Ig % >0.5 Indic ates possi ble Left Shift Not Available [address], [address], 11/08/2024 16:41:35 11/08/19 25 11/08/2024 CBC Ig# 0.010 0.000- 0.093 Not Available [address], [address], 11/08/2024 16:41:35 11/08/19 25 11/08/2024 CBC NRBC% 0.0 % 0.0-0. 2 Not Available [address], [address], 11/08/2024 16:41:35 11/08/19 25 11/08/2024 CBC NRBC# 0.000 0.000- 0.012 Not Available [address], [address], 11/08/2024 16:41:35 11/08/19 25 11/09/2024 BASIC METAB OLIC PANEL glucose 103 mg/dL 70-100 high Not Available [address], [address], 11/09/2024 14:02:30 11/08/19 25 11/09/2024 BASIC METAB OLIC PANEL BUN 27 mg/dL 7-18 high Not Available [address], [address], 11/09/2024 14:02:30 11/08/19 25 11/09/2024 BASIC METAB OLIC PANEL creatinine 0.8 mg/dL 0.8-1. 3 Not Available [address], [address], 11/09/2024 14:02:30 11/08/19 25 11/09/2024 BASIC METAB OLIC PANEL B/C 33.8 ratio Not Available [address], [address], 11/09/2024 14:02:30 11/08/19 25 11/09/2024 BASIC METAB [...] be used in pregn mark. Not Available [address], [address], 11/09/2024 14:02:30 11/08/1911/09/2024 BASIC METAB OLIC PANEL sodium 141 mmol/ L 136-14 5 Not Available [address], [address], 11/09/2024 14:02:30 11/08/19 25 11/09/2024 BASIC METAB OLIC PANEL potassium 4.5 mmol/ L 3.5-5. 1 Not Available [address], [address], 11/09/2024 14:02:30 11/08/19 25 11/09/2024 BASIC METAB OLIC PANEL chloride 102 mmol/ L 96-107 Not Available [address], [address], 11/09/2024 14:02:30 11/08/19 25 11/09/2024 BASIC METAB OLIC PANEL anion gap 10.1 5.0-15 .0 Not Available [address], [address], 11/09/2024 14:02:30 11/08/19 25 11/09/2024 BASIC METAB OLIC PANEL CO2 29 mmol/ L 21-32 Not Available [address], [address], 11/09/2024 14:02:30 11/08/1911/09/2024 BASIC METAB OLIC PANEL calcium 9.5 mg/dL 8.5-10 .3 Not Available [address], [address], 11/09/2024 14:02:30 11/08/1911/09/2024 LIPID PANEL cholesterol 263 mg/dL <200 mg/dl Manisha able 200-2 39 mg/dl Borde rline High >240 mg/dl High Not Available [address], [address], 11/09/2024 14:02:31 11/08/19 25 11/09/2024 LIPID PANEL triglyceride s 56 mg/dL <150 mg/dL Jewell l 150-1 99 mg/dL Borde rline High 200-4 99 mg/dL High >500 mg/dL Very High Not Available [address], [address], 11/09/2024 14:02:31 11/08/1911/09/2024 LIPID PANEL direct HDL 86 mg/dL <40 mg/dl - Major Risk for CHD >60 mg/dl - Negat leyda Risk for CHD Not Available [address], [address], 11/09/2024 14:02:31 11/08/1911/09/2024 DIREC T LDL direct LDL 149 mg/dL RISK CATEG ORY LDL GOAL _ CHD or CHD Risk Equiv alent s <100 mg/dl (10-y ear risk >20%) 2+ Risk Facto rs <130 mg/dl (10-y ear risk <= 20%) 0-1 Risk Facto r <160 mg/dl Almo st all peopl e with 0-1 risk facto r have a 10 year risk <10%, thus 10 year risk asses ment in peopl e with 0-1 risk facto r is not neces arnoldo. Not Available [facility] [address] [facility], [place], [address], 11/09/2024 14:02:33 11/08/19 25 11/09/2024 HEPAT ITIS [...] a test for HCV RNA (test code 14594 ) is sugge tand. For addit ional infor matjen n pleas e refer to http: //[facility] angi king.keysha stdia gnost ics.c om/fa q/FAQ 22v1 (This link is being provi ded for infor matio nal/ educa dione l purpo ses only. ) Not Available [facility] [address] [place] [address] [place], [place], [address], 11/09/2024 17:18:35 11/02/19 25 05/04/2024 MAMMO , scree hamilton No observ ation record ed. [email or web address] [facility] [address] [place] [address] [place], [address], 11/03/2024 07:57:56 11/08/19 25 11/08/2024 XR, elbow [...] Readin g Physic shweta: Kai ia Cross [facility]) [address] , [place], [address], 11/09/2024 16:36:09 Result Notes Documentation Provider Name and Address Organization Details Recorded Time Xr, Elbow : CLINICAL HISTORY: Right elbow pain. TECHNIQUE: AP, oblique and lateral flexion views of the right elbow obtained. COMPARISON: None. FINDINGS: No fracture, subluxation or dislocation is evident. The soft tissues are unremarkable. IMPRESSION: No acute bone abnormality. Reading Physician: JENNI Matos [address] [place] [address], [phone], [facility] 11/09/2024 14:12:33 Problems Name Problem SNOMED Code Status Onset Date Resolution Date Notes Provider Name and Address Organization Details Recorded Time Reduced libido 3458444 Active 2024 Per Historica l records BETI Ochoa, [facility] 5 08:59:59 Perimenop ausal state 38690278808 9104 Active 2024 Per Historica l records BETI Ochoa, [facility] 5 08:59:59 Migraine 21510963 Active 2024 Per Historica l records BETI Ochao, [facility] 5 08:59:59 Galactorr hea not associate d with childbirt h 79079623 Active 2024 Per Historica l records BETI Ochoa, [facility] 5 08:59:59 Retention of urine 405151053 Active 2024 with incomplet e bladder emptying- Per Historica l records BETI Ochoa, [facility] 5 08:59:59 Vaginal dryness 84316417 Active 2024 Per Historica l records BETI Ochoa, [facility] 5 08:59:59 Ulnar neuropath y of right arm 86820244719 9108 Active 2024 JENNI IRBY [address] [place] [address], [phone] , [facility] 5 12:35:13 Anxiety 06958778 Active 2024 JENNI IRBY [address] [place] [address], [phone] , [facility] 12:35:20 Problem Notes None recorded. Procedures Surgical History Date Name Laterality Status Provider Name and Address Organization Details Recorded Time 8 Biopsy of breast open completed Maggy Juan RN [facility] 10/21/2024 12:45:51 8 biopsy completed Maggy Juan RN [facility] 10/21/2024 12:46:47 ligation of fallopian tube completed Maggy Juan RN [facility] 10/24/2024 15:26:26 surgical procedure completed Maggy Juan RN [facility] 10/24/2024 15:27:33 Breast reduction completed Maggy Juan RN [facility] 10/27/2024 08:51:39 Imaging Results None recorded. Procedure Notes None recorded. Medical Equipment None Reported. Allergies Allergen ID Allergen Name Allergen Category Reaction Reaction Severity Criticality Documentation Date Start Date Code Code System Note Provider Name and Address Organization Details Recorded Time 184844 penicilli n G Not available itching rash Not available Not available Not available 10/24/2024 7980 RxNorm Per Histo rical recor BETI [facility] 15:21:51 964035 cefazolin medicatio n hives itching rash Not available Not available Not available Not available 10/24/2024 2180 RxNorm Per Histo rical recor BETI [facility] 15:23:40 523865 Product containin g penicilli n (product) medicatio n rash Not available Not available 10/24/2024 75721 8001 SNOMED Per Histo rical recor BETI [facility] 15:25:18 Medications Name Sig Start Date Stop Date Status Note LastModified by Organization Details LastModified Time methocarbam ol 500 mg tablet TAKE 1 TABLET BY MOUTH THREE TIMES DAILY FOR 7 DAYS NEEDED FOR MUSCLE PAIN 12/23 completed Not Available Not Available Not Available venlafaxine ER 37.5 mg capsule,ext ended release 24 hr TAKE 1 CAPSULE BY MOUTH EVERY MORNING FOR 1 WEEK. INCREASE TO 2 CAPSULE BY MOUTH EVERY MORNING active Not Available Not Available No t Available venlafaxine ER 75 mg capsule,ext ended release 24 hr TAKE 1 CAPSULE BY MOUTH DAILY IN THE MORNING active Not Available Not Available No t Available medroxyprog esterone 5 mg tablet TAKE 1 TABLET BY MOUTH EVERY DAY 2024 active Not Available Not Available Not Avai lable rizatriptan 10 mg tablet TAKE 1 TABLET BY MOUTH EVERY 2 TO 4 HOURS NEEDED FOR MIGRAINE HEADACHE. DO NOT EXCEED 3 DOSES PER 24 HOURS active Not Available Not Available No t Available aspirin 81 mg tablet,kalen yed release TAKE 1 TABLET BY MOUTH DAILY active Not Available Not Available No t Available estradiol 0.025 mg/24 hr weekly transdermal patch Apply 1 patch twice a week by transderm al route, for hot flashes. 2024 active Not Available Not Available Not Avai lable amitriptyli ne 25 mg tablet TAKE 1 TABLET BY MOUTH DAILY AT BEDTIME 11/01 completed Not Available Not Available Not Available tamsulosin 0.4 mg capsule TAKE 1 CAPSULE BY MOUTH AT BEDTIME active Not Available Not Available No t Available rizatriptan 10 mg disintegrat ing tablet Take 1 tablet by oral route as directed. 11/01 completed Not Available Not Available Not Available cephalexin 500 mg capsule TAKE 1 CAPSULE BY MOUTH EVERY 8 HOURS FOR 7 DAYS 11/01 completed Not Available Not Available Not Available buspirone 7.5 mg tablet TAKE 1 TABLET BY MOUTH TWICE A DAY 11/01 completed Not Available Not Available Not Available bisacodyl 5 mg tablet,kalen yed release TAKE 4 TABLETS BY MOUTH ONCE 12/23 completed Not Available Not Available Not Available ondansetron 4 mg disintegrat ing tablet PLACE 1 TABLET UNDER THE TONGUE EVERY 8 HOURS NEEDED FOR NAUSEA 12/23 completed Not Available Not Available Not Available cholecalcif toan (vitamin D3) 25 mcg (1,000 unit) capsule TAKE 1 CAPSULE BY MOUTH DAILY active Not Available Not Available No t Available clonazepam 0.125 mg disintegrat ing tablet DISSOLVE 1-2 TABLETS BY MOUTH UNDER THE TONGUE NEEDED FOR SEVERE ANXIETY/P ANIC UP TO TWICE DAILY active Not Available Not Available No t Available duloxetine 20 mg capsule,del ayed release TAKE 1 CAPSULE BY MOUTH EVERY NIGHT active Not Available Not Available No t Available Vitamin D 1 daily active Not Available Not Av ailable Not Available Asprin Ec Low Dose 1 daily 11/01 completed Not Available Not Available Not Available diclofenac 1 % topical gel APPLY 2 GRAMS TO THE AFFECTED AREA(S) BY TOPICAL ROUTE 4 TIMES PER DAY 2024 active Not Available Not Available Not Avai lable GaviLyte-G 236 gram-22.74 gram-6.74 gram-5.86 gram oral solution MIX AND DRINK DIRECTED 12/23 completed Not Available Not Available Not Available Lyllana 0.025 mg/24 hr transdermal patch APPLY 1 PATCH TOPICALLY TO THE SKIN 2 TIMES A WEEK FOR HOT FLASHES active Not Available Not Available No t Available Vitals Date Recorded Body height Body mass index (BMI) Body weight Heart rate Oxygen saturation Oxygen saturation in Arterial blood by Pulse oximetry Systolic And Diastolic Provider Name and Address Organization Details Last Updated DateTime 5 154.94 cm 24.4 kg/m2 97788.1 2 g 73 /min 99 % 99 % 104/64 mm[Hg] Flako Estrada [facility] 5 16:27:54 Date Recorded Body height Body mass index (BMI) Body weight Heart rate Oxygen saturation Oxygen saturation in Arterial blood by Pulse oximetry Systolic And Diastolic Provider Name and Address Organization Details Last Updated DateTime 5 154.94 cm 24.4 kg/m2 74728.8 2 g 80 /min 99 % 99 % 108/66 mm[Hg] Flako Estrada [facility] 14:06:38 Date Recorded Body height Body mass index (BMI) Body weight Heart rate Systolic And Diastolic Provider Name and Address Organization Details Last Updated DateTime 12/23/2024 154.94 cm 24.6 kg/m2 18386.01 g 80 /min 116/78 mm[Hg] Miguelina Nuñez [facility] 12/23/2024 12:01:14 Date Recorded Body weight Body mass index (BMI) Body height Heart rate Oxygen saturation Oxygen saturation in Arterial blood by Pulse oximetry Systolic And Diastolic Provider Name and Address Organization Details Last Updated DateTime 4 94816.2 3 g 24 kg/m2 154.94 cm 70 /min 99 % 99 % 112/76 mm[Hg] Flako Estrada MA [facility] 4 09:37:55 Social History Question Answer Notes LastModified by Organizat ion Details LastModified Time Tobacco Smoking Status Never Smoker Flako Estrada MA riri [facility] 09/30/2024 09:35:09 What Was The Date Of Your Most Recent Tobacco Screening? 11/08/2024 Information not available 11/08/2024 Sex: Female Functional Status Question Answer Note LastModified by Organization D etails LastModified Time Do you or have you ever used any other forms of tobacco or nicotine? No Information not available 09/30/2024 Mental Status None recorded. Family History Relationship [...] Details Recorded Time Td(adult) unspecified formulation 03/20/2009 BETI Bray, [facility] 10/21/2024 12:09:11 Hep B, unspecified formulation 09/06/2013 BETI Bray, [facility] 10/21/2024 12:09:53 COVID-19, mRNA, LNP-S, PF, 25 mcg/0.25 mL 01/15/2021 BETI Bray, [facility] 10/27/2024 11:54:12 influenza, unspecified formulation [facility] 12:19:44 MMR 1977 completed Maggy Juan RN null, [facility] 10/27/2024 08:31:39 influenza, unspecified formulation 06/14/2021 completed Maggy Juan RN null, [facility] 10/27/2024 08:41:06 influenza, unspecified formulation 07/07/2020 completed Maggy Juan RN null, [facility] 10/27/2024 11:48:59 COVID-19, mRNA, LNP-S, PF, 30 mcg/0.3 mL dose, vickie-sucrose 09/12/2021 completed Maggy Juan RN null, [facility] 10/27/2024 11:51:03 COVID-19, mRNA, LNP-S, PF, 25 mcg/0.25 mL 02/12/2021 completed Maggy Juan RN null, [facility] 10/27/2024 11:56:17 Past Encounters Encounter ID Performer Location Encounter Start Date Encounter Closed Date Diagnosis/Indication Diagnosis SNOMED-CT Code Diagnosis ICD10 Code Diagnosis Note [id number] Carl Pitts MD , [facility], OFFICE [address] [place] [address] 09/30/2024 09:18:40 09/30/2024 10:18:40 Active or passive immunization 158916258 Z23 FluTd/tdap Lumbar radiculopathy 128 112677 M54.16 Right lumbar radiculopa thyGI upset with ibuprofen - prefers to avoid.Cont inue Tylenol, ASA, heat, and stretching as tolerated. Will arrange PT. Migraine 51467979 G43.90 9 Frequent migraines responsive to rizatripta [...] month or sooner PRN. Menopausal flushing 1983 433[address] N95.1 X6 months with amenorrhea . Hot flashes are impairing sleep, which in turn likely worsening migraines. Plan as above. [id number] Carl Pitts MD , [facility], [address]ICE [address] [place] [address] 11/01/2024 16:01:27 11/01/2024 19:22:12 Migraine 81470300 G43.909 Frequent migraines responsive to rizatripta n. Looking for preventati ve options.AD R sleepiness with venlafaxin e. Will try estrogen patch as below. Active or passive immunization 323188160 Z23 Flu: declinestd ap: declines Screening mammography 24 647250 Z12.31 Done at [facility] [place]ening for malignant neoplasm of colon 298128346 Z12.11 Referral for a DIRECT booked colonoscop y. This patient is a healthy ASA Class 1 or 2 patient (only mild systemic disease), or a STABLE, well controlled insulin dependent diabetic. They do not have serious cardiac disease ie MA/angiopl asty within 1 year, symptomati c CHF; renal failure with CKD 4 or 5; take Coumadin, Plavix, Aggrenox, etc. Screening for disorder 754149643 Z11.59 Menopausal flushing 1983 39858 N95.1 X6 months with amenorrhea . Hot flashes are impairing sleep, which in turn likely worsening migraines. ADR sleepiness with venlafaxin e. Will try estrogen patch as below. Pain of ri ght elbow joint 8481147726 6790829 M25.521 Suspect epicondyli tis. Some pain, numbness and tingling. 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 Rec elbow brace at night. [id number] Carl Pitts MD , [facility], [address] [place] [address] 11/08/2024 13:55:40 11/10/2024 10:18:59 Active or passive immunization 787537200 Z23 Flu: declinesTd ap: declines Screening for malignant neoplasm of colon 741767151 Z12.11 Appt 11/21/24 Pain of ri ght elbow joint 8477334819 8959444 M25.521 Pain/ paresthesi as in elbow radiating through arm, worse at night. HX surgery 7-8 years ago, unsure what type. Suspect epicondyli tis.Start with XR though advised may not show much.Unruly nue elbow brace, pending labs can start ibuprofen. Family his tory of Cardiovascular disease 073057965 Z82.49 Migraine 10564338 G43.90 9 Frequent migraines responsive to rizatripta n.Improvem ent with estrogen patches thus far for prevention - continue. Screening mammography 24 949963 Z12.31 Done at [facility] Menopausal flushing 1984 16801 N95.1 X6 months with amenorrhea . Hot flashes are impairing sleep, which in turn likely worsening migraines. Persisting despite estrogen patches - discussed trying for a few more days and can inc dose as needed.Sta rt progestero ne for endometria l cancer prevention . 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 Had decompress ion 6 years ago at [facility] with improvemen t and would like to try again. Little relief with NSAIDs, activity mods, elbow brace.Can try diclofenac gel, will re-refer. Anxiety 71320037 F41.9 Started on duloxetine 20mg, clonazepam 0.125mg (1-2 tabs) as needed BID.Follow ing with [facility], psychiatri st.Doing FMLA with psychiatry . Health Concerns Section Related Observation LastModified by Organization Detai ls LastModified Time None Recorded Concern Status LastModified by Organization Details LastModified Time None Recorded Advance Directives Directive None Recorded Payers Insurance Date Sequence Insurance Name Policy Number Policy Hernández Covered Member ID Hernández Member ID Guarantor Name 03/01/2025 1 [place] [id number] Antelmo Anglin [id number] Antelmo Anglin Notes Date Note Type Note Provider Name and Address Organization Details Recorded Time 09/30/2024 text/html Patient presents to office today for concern about multiple issues. 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 Macdonald with [facility] -Migraines with improvement from rizatriptan 10mg. Headache [...] back.-Concern about high cholesterol.-Appt with urology at [facility] 10/27/24 for burning with urination. No HX UTIs. Need records. JENNI IRBY [address] [place] [address], [phone], [facility] 09/30/2024 11:10:47 11/01/2024 text/html 11/01/24Patient presents to [...] for concern about multiple issues. 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 Macdonald with [facility] -Migraines with improvement from rizatriptan 10mg. Headache [...] back.-Concern about high cholesterol.-Appt with urology at [facility] 10/27/24 for burning with urination. No HX UTIs. Need records. JENNI IRBY [address] [place] [address], [phone], [facility] 11/01/2024 17:17:04 11/08/2024 text/html /11/08/24Right arm pain. Numbness and tingling.3 weeks, acutely worsened.Got elbow brace on Thursday. Somewhat helpful.Pain radiates up into neck and down into wrist. Hurts when squeezing wrist.Much worse at night. Swell/ stiff in morning.HX surgery on elbow 7-8 [place] ago at [facility] No HX injections. Taking Tylenol. 11/01/24Patient presents [...] for concern about multiple issues. 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 Macdonald with [facility] [place]Migraines with improvement from rizatriptan 10mg. Headache [...] back.-Concern about high cholesterol.-Appt with urology at [facility] 10/27/24 for burning with urination. No HX UTIs. Need records. ROXY LESLIE, JENNI [address] [place] [address], [phone], [facility] 11/08/2024 14:43:21 12/23/2024 text/html 12/23/24Here with persistent [...] surgery on elbow 7-8 years ago at [facility] No HX injections. Taking Tylenol. 11/01/24Patient presents [...] for concern about multiple issues. 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 Macdonald with [facility] -Migraines with improvement from rizatriptan 10mg. Headache [...] back.-Concern about high cholesterol.-Appt with urology at [facility] 10/27/24 for burning with urination. No HX UTIs. Need records. JENNI IRBY [address] [place] [address], [phone], [facility] 12/23/2024 12:36:15 OBGyn Episode No OBEpisode recorded.
--- OUTSIDE RECORDS SUMMARY | 2025-04-21 10:33 | XMS_ITS | Clinical Summary ---
Author Organization [facility] Address [address] [place] [address] Care Team Providers Care Performance Engineer Name Role Phone Unavailable Primary Care Provider [...] 2021 Fecal DNA 2021 Flexible Sigmoidoscopy 2021 [id number] ( season) 2024 021, 01/15/2021 Imm-Influenza (#1) 2024 07/07/2020, 1 10/06/2018, 09/06/2013, Additional history exists Alcohol and Drug Screen 10/05/2024 Depression Annual Screen 10/05/2024 Cervical Ablation/Cold-Knife Conization Discontinued Cervical Cryotherapy Discontinued Colposcopy Discontinued Endometrial Biopsy Discontinued Excision/Leep Discontinued HPV Genotyping Discontinued Vaginal Pap Discontinued Vulvoscopy Discontinued Insurance [employer] PLAN Member Subscriber Plan / Payer (Ef fective 2021-Present) Name:Antelmo Anglin Relation to Subscriber:Self Name:Antelmo Anglin Payer ID:[id number] Group ID:Not on file Type:Medicaid Address: [facility] [address] [place] [address]
== END 2025-04-21 11:28 | disposition home or self-care (01) ==
LOC: HO.HOS 10:13
PROVIDERS: Visit Provider Physical Medicine & Rehabilitation
DX: M77.01 Medial epicondylitis, right elbow (principal); G56.21 Lesion of ulnar nerve, right upper limb
CPT/HCPCS: 99204

== ENCOUNTER 2025-04-21 10:12 | Outpatient (REF) | payer BC, SELFPAY ==
--- NOTE | ~2025-04-21 | XR_ITS ---
EXAMINATION: XR ELBOW, RIGHT CLINICAL INFORMATION: M77.01 - Medial epicondylitis, right elbow COMPARISON: None available. TECHNIQUE: AP, lateral, and oblique views of the right elbow. FINDINGS: The anterior fat pad is visible but not displaced. Posterior fat pad is not visualized. No fracture line is apparent. There are no enthesophytes. XR/XR elbow RT min 3V IMPRESSION: Unremarkable right elbow Electronically signed by: Federico Knox MD 04/21/2025 11:34 AM EDT
== END 2025-04-21 10:13 | disposition home or self-care (01) ==
LOC: HO.HOSX 10:12
PROVIDERS: Visit Provider Physical Medicine & Rehabilitation
DX: M77.01 Medial epicondylitis, right elbow (principal); G56.21 Lesion of ulnar nerve, right upper limb
CPT/HCPCS: 73080

== ENCOUNTER → 2025-04-21 10:50 | Outpatient (BNV) | payer BC, SELFPAY | PROVIDERS: Visit Provider Radiology Diagnostic Radiology | DX: M77.01 Medial epicondylitis, right elbow (principal) | CPT/HCPCS: 73080 ==

== ENCOUNTER 2025-05-10 15:46 | Outpatient (REF) | payer BC, SELFPAY ==
--- OUTSIDE RECORDS SUMMARY | 2025-05-10 16:11 | XMS_ITS | Clinical Summary ---
Author Organization [facility] Address [address] [place] [address] Care Team Providers Care Implant Polisher Name Role Phone Unavailable Primary Care Provider [...] 2021 Fecal DNA 2021 Flexible Sigmoidoscopy 2021 [id number] ( season) 2024 021, 01/15/2021 Imm-Influenza (#1) 2024 07/07/2020, 1 10/06/2018, 09/06/2013, Additional history exists Alcohol and Drug Screen 10/05/2024 Depression Annual Screen 10/05/2024 Cervical Ablation/Cold-Knife Conization Discontinued Cervical Cryotherapy Discontinued Colposcopy Discontinued Endometrial Biopsy Discontinued Excision/Leep Discontinued HPV Genotyping Discontinued Vaginal Pap Discontinued Vulvoscopy Discontinued Insurance [employer] PLAN Member Subscriber Plan / Payer (Ef fective 2021-Present) Name:Antelmo Anglin Relation to Subscriber:Self Name:Antelmo Anglin Payer ID:[id number] Group ID:Not on file Type:Medicaid Address: [facility] [address] [place] [address]
== END 2025-05-10 15:47 | disposition home or self-care (01) ==
LOC: HO.MAMMO 15:46
PROVIDERS: Visit Provider Internal Medicine
DX: Z12.31 Encounter for screening mammogram for malignant neoplasm of breast (principal)
CPT/HCPCS: 77063; 77067

== ENCOUNTER → 2025-05-10 16:00 | Outpatient (BNV) | payer BC, SELFPAY | PROVIDERS: Visit Provider Radiology Body Imaging | DX: Z12.31 Encounter for screening mammogram for malignant neoplasm of breast (principal) | CPT/HCPCS: 77063; 77067 ==

== ENCOUNTER 2025-06-21 13:59 | Outpatient (REF) | payer BC, SELFPAY ==
--- NOTE | 2025-06-21 14:03 | EMG_ITS ---
Chief complaint: Presented with symptoms of medial epicondylitis. History of right ulnar surgery 6 years ago. Reason for referral: Evaluate for recurrent ulnar neuropathy Procedure done: Right upper extremity NCS/EMG Precautions and/or limitations: None The limb temperature was monitored continuously and remained between 32-36 degrees C during the performance of the NCS. Nerve Conduction Studies Anti Sensory Summary Table ?Stim Site NR Onset (ms) Norm Onset (ms) Peak (ms) Norm Peak (ms) O-P Amp (?V) Norm O-P Amp Site1 Site2 Delta-0 (ms) Dist (cm) Sam (m/s) Norm Sam (m/s) Right Median Anti Sensory (2nd Digit) Wrist ? 2.4 3.3 <3.6 57.7 >10 Wrist 2nd Digit 2.4 14.0 58 Right Radial Anti Sensory (Thumb) Forearm ? 1.7 2.2 <3.1 9.3 Forearm Thumb 1.7 0.0 Right Ulnar Anti Sensory (5th Digit) Wrist ? 2.5 3.4 <3.7 19.2 >15.0 Wrist 5th Digit 2.5 14.0 56 Motor Summary Table ?Stim Site NR Onset (ms) Norm Onset (ms) O-P Amp (mV) Norm O-P Amp iAmp (mV) Amp (1st) (%) Site1 Site2 Delta-0 (ms) Dist (cm) Sam (m/s) Norm Sam (m/s) Right Median Motor (Abd Poll Brev) Wrist ? 3.2 <3.9 7.5 >4.5 8.8 100.0 Elbow Wrist 3.2 18.0 56 >45 Elbow ? 6.4 7.0 8.3 93.3 Right Ulnar Motor (Abd Dig Minimi) Wrist ? 2.8 <3.0 7.9 >5 9.9 100.0 B Elbow Wrist 3.1 17.0 55 >45 B Elbow ? 5.9 8.2 10.3 103.8 A Elbow B Elbow 1.3 10.0 77 >45 A Elbow ? 7.2 8.1 10.2 102.5 EMG ?Side Muscle Nerve Root Ins Act Fibs Psw Amp Dur Poly Recrt Int Pat Comment Right 1stDorInt Ulnar C8-T1 Nml Nml Nml Nml Nml 0 Nml Complete Right FlexCarRad Median C6-7 Nml Nml Nml Nml Nml 0 Nml Complete Right FlexCarpiUln Ulnar C8,T1 Nml Nml Nml Nml Nml 0 Nml Complete Right Biceps Musculocut C5-6 Nml Nml Nml Nml Nml 0 Nml Complete Right Triceps Radial C6-7-8 Nml Nml Nml Nml Nml 0 Nml Complete Right Deltoid Axillary C5-6 Nml Nml Nml Nml Nml 0 Nml Complete FINDINGS: All motor and sensory nerves tested showed normal latencies, amplitudes and conduction velocities. Concentric needle EMG was performed in selected muscles of the right upper extremity. Study did not reveal signs of electric abnormalities as shown in the table above. IMPRESSION: 1. This is a normal study. 2. There is no electrodiagnostic evidence for median neuropathy, ulnar neuropathy, brachial plexopathy, or cervical radiculopathy. CLINICAL COMMENT: Continue counterforce brace. We will refer to OT. Thank you for your kind referral. Alysha Chavira MD, KATHE Board Certified, [place] Board of Physical Medicine and Rehabilitation (ABPMR) Board Certified, [place] Board of Electrodiagnostic Medicine (ABEM) [place] [id number] [facility]
--- OUTSIDE RECORDS SUMMARY | 2025-06-21 17:43 | XMS_ITS | Clinical Summary ---
Author Organization [facility] Address [address] [place] [address] Care Team Providers Care Systems Checkout Mechanic Name Role Phone Unavailable Primary Care Provider [...] 2021 Fecal DNA 2021 Flexible Sigmoidoscopy 2021 Alcohol and Drug Screen 10/05/2024 Depression Annual Screen 10/05/2024 [id number] ( season) 2025 021, 01/15/2021 Imm-Influenza (#1) 2025 07/07/2020, 1 10/06/2018, 09/06/2013, Additional history exists Cervical Ablation/Cold-Knife Conization Discontinued Cervical Cryotherapy Discontinued Colposcopy Discontinued Endometrial Biopsy Discontinued Excision/Leep Discontinued HPV Genotyping Discontinued Vaginal Pap Discontinued Vulvoscopy Discontinued [facility] [employer] [facility] Member Subscriber Plan / Payer (Ef fective 2021-Present) Name:Antelmo Anglin Relation to Subscriber:Self Name:Antelmo Anglin Payer ID:[id number] Group ID:Not on file Type:Medicaid Address: [facility] [address] [place] [address]
== END 2025-06-21 14:00 | disposition home or self-care (01) ==
LOC: HO.NEURO 13:59
PROVIDERS: Visit Provider Physical Medicine & Rehabilitation
DX: G56.21 Lesion of ulnar nerve, right upper limb (principal)
CPT/HCPCS: 95886; 95909

== ENCOUNTER → 2025-06-21 14:03 | Outpatient (BNV) | payer BC, SELFPAY | PROVIDERS: Visit Provider Physical Medicine & Rehabilitation | DX: G56.21 Lesion of ulnar nerve, right upper limb (principal) | CPT/HCPCS: 95886; 95909 ==

== ENCOUNTER 2025-07-11 15:45 | Outpatient (REF) | payer BC, SELFPAY ==
--- NOTE | ~2025-07-11 | US_ITS ---
EXAMINATION: US KIDNEY BILATERAL HISTORY: N20.0 - Calculus of kidney TECHNIQUE: Real-time grayscale ultrasound imaging of the kidneys was performed and images were reviewed. COMPARISON: Comparison is made with the prior examination dated 01/11/2025. FINDINGS: Right kidney: The right kidney measures 10.7 x 5.9 x 5.2 cm. Renal parenchymal echotexture and thickness are normal. There are no masses. Punctate echogenic foci are noted which may represent calcified vessels. There is no hydronephrosis or definite renal calculi. Left Kidney: The left kidney measures 9.8 x 5.2 x 5.2 cm. Renal parenchymal echotexture and thickness are normal. There are no masses. There are punctate echogenic foci which may represent calcified vessels. There is a 5 x 3 x 5 mm nonobstructing calculus in the interpolar region. There is no hydronephrosis. US/US renal BI IMPRESSION: 5 mm nonobstructing left renal calculus. Electronically signed by: Magdy Mendoza MD 07/12/2025 07:01 AM EDT
== END 2025-07-11 15:46 | disposition home or self-care (01) ==
LOC: HO.US 15:45
PROVIDERS: Visit Provider Nurse Practitioner Family
DX: N20.0 Calculus of kidney (principal)
CPT/HCPCS: 76775

== ENCOUNTER → 2025-07-11 15:47 | Outpatient (BNV) | payer BC, SELFPAY | PROVIDERS: Visit Provider Radiology Diagnostic Radiology | DX: N20.0 Calculus of kidney (principal) | CPT/HCPCS: 76775 ==

== ENCOUNTER 2025-07-24 15:44 | Outpatient (AMB) | payer BC, SELFPAY ==
--- NOTE | 2025-07-24 16:01 | A.OFFVIS_ITS ---
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: No Accompanied by: Self / Same As Patient Allergies cefazolin (CEFAZOLIN) Allergy (Intermediate, Verified 07/24/25 16:36) RASH, HIVES, ITCHINESS Penicillins (PENICILLINS) Allergy (Intermediate, Verified 07/24/25 16:36) RASH penicillin G Allergy (Unknown, Verified 07/24/25 16:36) rash, itching antibiotic unsure name Allergy (Unknown, Uncoded 07/24/25 16:36) unknown Medication List - Last Reconciled 07/24/25 by MANDY Hdz- aspirin (Adult Aspirin Regimen) 81 mg PO DAILY 90 days cholecalciferol (vitamin D3) 25 mcg PO DAILY 90 days rizatriptan 10 mg PO Q2-4H PRN 30 days tamsulosin 0.4 mg PO BEDTIME 30 days HPI Comments Details: Antelmo is a pleasant 49-year-old Upper Sorbian-speaking female patient of Dr. Gutiérrez. She has a past medical history of migraines. She presents to the office today for follow-up of her nephrolithiasis and ongoing lower urinary tract symptoms. Recent renal ultrasound results reviewed with the patient today 07/29 bilateral kidneys are normal in parenchymal echotexture and thickness. There are no renal masses or hydronephrosis noted bilaterally. Left kidney with nonobstructing 5 x 3 x 5 mm nonobstructing calculus. She was unable to obtain bladder ultrasound as she was not prepped for imaging however she does have a scheduled follow-up for August 30 to obtain bladder ultrasound with our radiology department. She does continue to experience episodes of urinary urgency and frequency however feels they are precipitated by her anxiety as she describes these episodes occurring more frequently when she feels anxious. In office urinalysis results reviewed with the patient today. PVR 9 mL. She otherwise denies any bothersome urinary issues or concerns. She does have a history of 2 vaginal births of average size babies in the past. She reports she had been utilizing 2 Monik pads per day however has not needed to since initiation of Flomax. She otherwise denies hematuria, dysuria, foul smelling urine, changes to urinary stream, flank pain, fever, and or chills. We discussed at length potential causes of lower urinary tract symptoms patient is experiencing. Continue with pelvic floor exercises at home as discussed. What she does endorse to drinking increased amounts of caffeine (coffee) daily. We did discussed bladder triggers and irritants. She otherwise offers no other issues or concerns at this time. 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 Current occupational exposures/hazards: No Gender identity: Female Cognitive needs: No Hearing needs: No Vision needs: Yes Female Reproductive History Menstrual Age of Menarche: 14 Review of Systems Const All systems reviewed & are unremarkable except as noted in HPI and below Physical Exam Const General: cooperative, healthy appearing, comfortable, no acute distress, well developed, alert and awake Orientation/consciousness: patient oriented x3 Limitations: no limitations HEENT Head: Yes normal to inspection, Yes normocephalic and Yes atraumatic Ears: hearing grossly normal bilaterally Eyes General: appearance normal, both eyes and all related structures Neck Neck: Yes normal visual inspection and Yes trachea midline Chest Chest palpation & inspection: normal inspection of the chest Resp Effort & Inspection: normal respiratory effort and able to speak in complete sentences Cardio Rate: regular rate GI Inspection: Yes normal to inspection General: Yes no CVA tenderness Back/Spine/Pelvis Back: no CVA tenderness Skin General skin exam: no rashes or lesions noted Neuro General: patient oriented x3 Extrem General: Yes normal to inspection Psych Appearance: grossly normal and well kempt Mental Status: mental status grossly normal Speech and movement: Normal speech and movement present and Clear speech present Affect: normal affect Attitude: cooperative Thought process: Normal thought process present Thought content: Normal thought content present Insight: Fair insight present (Psych) Judgement: Fair judgement present (Psych) Office Procedures Post Void Residual Post Residual Void Post Void Residual (PVR): 9 [id number] Void Residual by ultrasound Results AMB Urinalysis, Automated UA Leukoctes 15 Rosa/uL Last Edit by DANY Andrews on 07/24/25 16:22 UA Nitrite Last Edit by DANY Andrews on 07/24/25 16:22 UA Urobilinogen 0.2 mg/dL Last Edit by DANY Andrews on 07/24/25 16:2 2 UA Protein 15 mg/dL Last Edit by DANY Andrews on 07/24/25 16:22 UA pH 6.0 Last Edit by DANY Andrews on 07/24/25 16:22 UA Blood 0 Martin/uL Last Edit by DANY Andrews on 07/24/25 16:22 UA Specific [place] 1.015 Last Edit by DANY Andrews on 07/24/25 16: 22 UA Ketone Last Edit by DANY Andrews on 07/24/25 16:22 UA Bilirubin 1 mg/dL Last Edit by DANY Andrews on 07/24/25 16:22 UA Glucose 0 mg/dL Last Edit by DANY Andrews on 07/24/25 16:22 Results Reviewed Results Reviewed: Laboratory Last Values Urine pH (Auto) 6.0 07/24/25 16:22 Specific [place] (Auto) 1.015 07/24/25 16:22 Urine Protein (Auto) 15 mg/dL 07/24/25 16:22 Glucose (UA)(Auto) 0 mg/dL 07/24/25 16:22 Urine Blood (Auto) 0 Martin/uL 07/24/25 16:22 Urine Bilirubin (Auto) 1 mg/dL 07/24/25 16:22 Urine Urobilinogen (Auto) 0.2 mg/dL 07/24/25 16:22 Leukocyte Esterase (Auto) 15 Rosa/uL 07/24/25 16:22 Date of Service: 07/11/25 Procedure(s): US renal BI FINDINGS: Right kidney: The right kidney measures 10.7 x 5.9 x 5.2 cm. Renal parenchymal echotexture and thickness are normal. There are no masses. Punctate echogenic foci are noted which may represent calcified vessels. There is no hydronephrosis or definite renal calculi. Left Kidney: The left kidney measures 9.8 x 5.2 x 5.2 cm. Renal parenchymal echotexture and thickness are normal. There are no masses. There are punctate echogenic foci which may represent calcified vessels. There is a 5 x 3 x 5 mm nonobstructing calculus in the interpolar region. There is no hydronephrosis. IMPRESSION: 5 mm nonobstructing left renal calculus. Assessment & Plan Assessment & Plan (1) Nephrolithiasis: Code(s): N20.0 - Calculus of kidney Category: Medical (2) Feeling of incomplete bladder emptying: Code(s): R39.14 - Feeling of incomplete bladder emptying Category: Medical (3) Urinary urgency: Code(s): R39.15 - Urgency of urination Category: Medical (4) Urinary frequency: Code(s): R35.0 - Frequency of micturition Category: Medical Plan In office urinalysis results reviewed with the patient today; as noted above. PVR 9 mL. Recent renal imaging results reviewed with the patient today; as noted above. We did discussed nephrolithiasis and further interventions and risks and benefits of these interventions. We discussed bladder triggers and irritants. Will continue with Flomax and pelvic floor exercises at home as discussed All questions were answered Follow-up once imaging (bladder ultrasound) is completed; or sooner with any issues, concerns, and or questions. Orders: Orders AMB Post Void Residual by ultrasound Today R39.14 - Feeling of incomplete bladder emptying AMB Urinalysis Automated Today Z13.9 - Encounter for screening, unspecified Patient Instructions: The patient had an opportunity to ask questions regarding the treatment plan. All questions were answered. Physical exam, labs, and imaging were discussed and reviewed in detail. As well as risks, benefits, and discussion of treatment choices. No major barriers to understanding were identified. The patient expressed understanding and agreement with the above treatment plan. The patient was made aware they should contact our office by phone for worsening of their current condition, the appearance of new symptoms, or with any questions or concerns. Compliance is encouraged with any medications and follow up testing that is ordered. It is a privilege to be allowed the opportunity to participate in? your urological care.? Again, if you have any questions or concerns If you have any questions or concerns please do not hesitate to contact me. The office is [phone]. This note is constructed using voice recognition software. While every effort has been made to ensure accuracy general hardware salesperson errors may have been included. Yours sincerely, WAYLON Hdz Coding Level of Care Code Est Pt Level 3 (02424) Diagnoses Nephrolithiasis N20.0 Feeling of incomplete bladder emptying R39.14 Urinary urgency R39.15 Urinary frequency R35.0 CPT Codes Post Residual Void - PVR CPT Code: 43146-Fyzs Void Residual by ultrasound ([id number])
== END 2025-07-24 16:41 | disposition home or self-care (01) ==
LOC: HO.HUSH 15:45
PROVIDERS: PCP Internal Medicine; Visit Provider Nurse Practitioner Family
DX: N20.0 Calculus of kidney (principal); R39.14 Feeling of incomplete bladder emptying; R39.15 Urgency of urination; R35.0 Frequency of micturition; Z13.9 Encounter for screening, unspecified
CPT/HCPCS: 99213

== ENCOUNTER → 2025-07-24 15:44 | Outpatient (BNVA) | payer BC, SELFPAY | PROVIDERS: PCP Internal Medicine; Visit Provider Nurse Practitioner Family | DX: N20.0 Calculus of kidney (principal); R39.14 Feeling of incomplete bladder emptying; R39.15 Urgency of urination; R35.0 Frequency of micturition; Z13.9 Encounter for screening, unspecified | CPT/HCPCS: 51798; 81003 ==